=== PATIENT | female | born 1945 | race Caucasian/White ===

== ENCOUNTER → 2023-10-10 06:49 | Outpatient (REF) | payer MEDICARE, OTHER, SELFPAY ==
[2023-10-10 07:50] LABS: ALT (SGPT) < 10 U/L (0-35); AST (SGOT) 30 U/L (14-36); Albumin 4.5 g/dl (3.5-5.0); Alkaline Phosphatase 67 U/L (38-126); Blood Urea Nitrogen 23 mg/dl (7-17); Calcium 8.5 mg/dl (8.4-10.2); Carbon Dioxide 29 mmol/L (22-30); Chloride 100 mmol/L (98-107); Glucose 110 mg/dl (70-99); Potassium 4.3 mmol/L (3.5-5.1); Sodium 137 mmol/L (135-145); Total Bilirubin 0.6 mg/dl (0.2-1.3); Total Protein 7.3 g/dl (6.3-8.2); eGFR > 60.00
[2023-10-10 08:09] LABS: Vitamin D, 25-OH*** 50.6 ng/mL (30-80)
[2023-10-11 16:33] LABS: CTx 63 pg/mL
== END ==
LOC: REG 06:49
PROVIDERS: ATTENDING PHYSICIAN Student in an Organized Health Care Education/Training Program; FAMILY PHYSICIAN Internal Medicine
DX: M81.0 Age-related osteoporosis without current pathological fracture (principal); E55.9 Vitamin D deficiency, unspecified
CPT/HCPCS: 36415; 80053; 82306; 82523

== ENCOUNTER → 2023-11-22 07:19 | Outpatient (REF) | payer MEDICARE, OTHER, SELFPAY ==
[2023-11-22 07:56] LABS: Ionized Calcium 0.97 mMOL/L (1.15-1.33)
[2023-11-22 08:29] LABS: ALT (SGPT) < 10 U/L (0-35); AST (SGOT) 31 U/L (14-36); Albumin 4.5 g/dl (3.5-5.0); Alkaline Phosphatase 71 U/L (38-126); Blood Urea Nitrogen 22 mg/dl (7-17); Calcium 8.4 mg/dl (8.4-10.2); Carbon Dioxide 29 mmol/L (22-30); Chloride 100 mmol/L (98-107); Glucose 94 mg/dl (70-99); Potassium 4.2 mmol/L (3.5-5.1); Sodium 137 mmol/L (135-145); Total Bilirubin 0.6 mg/dl (0.2-1.3); Total Protein 7.2 g/dl (6.3-8.2); eGFR > 60.00
== END ==
LOC: REG 07:19
PROVIDERS: ATTENDING PHYSICIAN Internal Medicine Rheumatology; FAMILY PHYSICIAN Internal Medicine
DX: E83.50 Unspecified disorder of calcium metabolism (principal)
CPT/HCPCS: 36415; 80053; 82330; 83735; 84100

== ENCOUNTER → 2024-11-01 07:30 | Outpatient (REF) | payer MEDICARE, OTHER, SELFPAY ==
[2024-11-01 08:03] LABS: Ionized Calcium 1.04 mMOL/L (1.15-1.33)
[2024-11-01 08:59] LABS: ALT (SGPT) < 10 U/L (0-35); AST (SGOT) 35 U/L (14-36); Albumin 4.6 g/dl (3.5-5.0); Alkaline Phosphatase 54 U/L (38-126); Blood Urea Nitrogen 25 mg/dl (7-17); Calcium 8.9 mg/dl (8.4-10.2); Carbon Dioxide 32 mmol/L (22-30); Chloride 102 mmol/L (98-107); Glucose 100 mg/dl (70-99); Magnesium 1.9 mg/dl (1.6-2.3); Potassium 4.2 mmol/L (3.5-5.1); Sodium 138 mmol/L (135-145); Total Bilirubin 0.7 mg/dl (0.2-1.3); Total Protein 7.1 g/dl (6.3-8.2); eGFR > 60.00
[2024-11-01 09:12] LABS: Vitamin D, 25-OH*** 52.2 ng/mL (30-80)
[2024-11-02 10:43] LABS: Intact PTH 35.1 pg/ml (13.6-85.8)
[2024-11-03 18:20] LABS: CTx 33 pg/mL
== END ==
LOC: REG 07:30
PROVIDERS: ATTENDING PHYSICIAN Student in an Organized Health Care Education/Training Program; FAMILY PHYSICIAN Internal Medicine
DX: E83.51 Hypocalcemia (principal); M81.0 Age-related osteoporosis without current pathological fracture
CPT/HCPCS: 36415; 80053; 82306; 82330; 82523; 83735; 83970

== ENCOUNTER 2025-02-10 12:23 | Emergency (ER) | payer MEDICARE, OTHER, SELFPAY ==
[2025-02-10] VITALS (9 sets, daily range): BP systolic 120–188; BP diastolic 82–102; PULSE 75–89; BMI 18.3
[2025-02-10 13:03] LABS: Hematocrit 40.0 % (37.0-47.0); Hemoglobin 13.9 g/dL (12.0-16.0); Mean Corp Hgb Conc. 34.8 g/dL (33.0-37.0); Mean Corpuscular Volume 95.9 fL (81.0-99.0); Nucleated Red Blood Cells % 0 %; Platelet Count 337 10^3/uL (130-400); Red Cell Dist. Width 12.8 % (11.5-14.5)
[2025-02-10 13:14] LABS: Troponin I < 0.012 ng/ml
[2025-02-10 13:24] LABS: ALT (SGPT) < 10 U/L (0-35); AST (SGOT) 33 U/L (14-36); Albumin 4.6 g/dl (3.5-5.0); Alkaline Phosphatase 52 U/L (38-126); Blood Urea Nitrogen 42 mg/dl (7-17); Calcium 8.9 mg/dl (8.4-10.2); Carbon Dioxide 26 mmol/L (22-30); Chloride 97 mmol/L (98-107); Glucose 120 mg/dl (70-99); Potassium 4.5 mmol/L (3.5-5.1); Sodium 132 mmol/L (135-145); Total Protein 7.4 g/dl (6.3-8.2); eGFR > 60.00
--- NOTE | 2025-02-10 18:07 | ED.GENMED ---
History of Present Illness
General
Chief Complaint: Blood Pressure Problem
Source: patient
Exam Limitations: none
Time Seen by Provider: 02/10/25 17:04
Nursing documentation reviewed up to this point in time: agreed with
History of Present Illness
History of Present Illness:
Patient with history of Parkinson's disease for 15 years and hypertension, presents to ED secondary to intermittent lightheaded sensation over the past 1 month, especially when standing up or walking. Patient denies associated chest palpitations,
chest pain, shortness of breath, or nausea. Denies headache. However, patient does report heaviness in her neck. Denies recent change in medications or diet. Of note, 3 weeks ago, patient had nonbloody diarrhea, requiring 2 different
antibiotics. Patient has not had diarrhea for the past 10 days. Denies loss of appetite. Denies loss of weight. Patient states that she drinks enough water during the day. Denies previous history of similar symptoms. At the time exam in the
ED, while lying in stretcher, patient denies any dizziness.
Past History
Past History
ED Past Medical History: HTN, Psychiatric (Anxiety and depression) and Other (Parkinson's)
ED Past Surgical History: Gynecological (Hysterectomy) and Other (Splenectomy)
Social History
Tobacco: Non-smoker
Alcohol: Occasional
Drug: None
Personal:
Living: with family
Employment: Retired
Review of Systems
Review of Systems
Allergies reviewed?: Yes
All Other Systems: ROS reviewed and negative except as documented in HPI and ROS
Constitutional: Reports no symptoms
EENT: Reports no symptoms
Respiratory: Reports no symptoms; Denies trouble breathing
Cardiac: Denies chest pain or palpitations
ABD/GI: Reports no symptoms
Musculoskeletal: Reports no symptoms
Skin: Reports no symptoms
Neurological: Reports dizzy; Denies headache, weakness or numbness
Phy Exam
Physical Exam
Physical Exam:
Physical Exam
General: no apparent distress, not acutely ill. afebrile. thin appearing
Head: nc/at. eomi
Neck: supple. no meningeal signs.
Heart: s1/s2 regular rate and rhythm
Lungs: no acute respiratory distress. clear bilaterally
Abdomen: normal bowel sounds. not tender.
Neuro: alert and oriented x 3. no focal neurological deficits. normal speech.
Skin: no rash
Psychiatric: well kept. interactive and cooperative
Extremities: no edema. no calf tenderness.
Course
Orders/Labs/Results
Orders:
Orders
02/10/25 12:38
Electrocardiogram (*1) Urgent
Reason for Study: Chest Pain
EKG- Treatment ONCE
02/10/25 12:44
Complete Blood Count/With Diff Urgent
Comprehensive Metabolic Panel Urgent
Serum Osmolality Urgent
Comment: ADD ON
Troponin I Urgent
02/10/25 18:01
CT Head & Neck Angio W/wo IV Urgent
Comment:
Reason For Exam: head/neck pain w dizziness/syncope
Orthostatic VS- Treatment ONCE
02/10/25 19:09
0.9% Sodium Chloride 500 ml [Nss] 500 ml IV BOLUS
Metoprolol [Lopressor] 5 mg IV NOW STA
02/10/25 22:36
Add On- LAB Urgent
Tests Added?: serum osm
Abnormal Lab Results
02/10/25
12:44
RBC 4.17 L 10^6/uL
(4.20-5.40)
MCH 33.3 H pg
(27.0-31.0)
Absolute Lymphs (auto) 0.9 L 10^3/uL
(1.2-3.4)
Lymphocytes % 17.3 L %
(20.5-51.1)
Monocytes % 10.9 H %
(1.7-9.3)
Sodium 132 L mmol/L
(135-145)
Chloride 97 L mmol/L
(98-107)
BUN 42 H mg/dl
(7-17)
Glucose 120 H mg/dl
(70-99)
02/10/25 12:44
02/10/25 12:44
Vital Signs
Initial and Last Documented VS:
Initial Vital Signs
Temp Pulse Resp BP Pulse Ox
98.8 F 67 16 140/90 98
02/10/25 12:35 02/10/25 12:35 02/10/25 12:35 02/10/25 12:35 02/10/25 12:35
Last Documented Vital Signs
Temp Pulse Resp BP Pulse Ox
98.8 F 89 17 120/93 99
02/10/25 12:35 02/10/25 21:39 02/10/25 21:39 02/10/25 22:35 02/10/25 21:30
MDM/Problems Addressed
MDM/Problems Addressed:
CT head report reviewed and discussed with patient and spouse. Patient given IV fluids with improvement in symptoms. Blood work reviewed and discussed, including hyponatremia, which may be prerenal, exacerbated by recent episode of diarrhea.
After IV fluid administration, patient was able to ambulate independently with steady gait, without any further dizziness. As such, decision made to discharge patient home with recommendation to increase water intake along with close PCP follow-up,
including repeat blood work as an outpatient. Advised to return to ED with recurrent or worsening symptoms.
*Pulse Oximetry
SaO2: 82
Oxygen Mode of Delivery: Room air
Patient hypoxic: no
*Critical Care Note
Total Time (30-74mins, 75-104mins- exclusive of procedures): Not Applicable
ED Attending Note
-
Portions of this chart may have been created with voice recognition software.� Occasional wrong word or��sound alike� substitutions may have occurred due to the inherent limitations of voice recognition software.
Discharge Plan
Departure
Patient Disposition: Home (Routine Discharge)
Date of Disposition: 02/10/25
Time of Disposition: 22:36
Patient with high blood pressure during this ER visit?: Yes
Condition: Fair
Discharge Problem:
Dizziness, Hyponatremia
Instructions: Hyponatremia, Dizziness in adults - ED (DC)
Prescriptions:
No Action
bisoprolol fumarate 5 MG tablet
5 mg PO DAILY
estradiol 1 APPLIC cream
1 applic S .TWICE PER WEEK
carbidopa-levodopa 1 EACH tablet
1 ea PO TID
rasagiline 1 MG tablet
1 mg PO DAILY
lisinopril 10 MG tablet
10 mg PO DAILY Qty: 20 0RF
amlodipine 2.5 mg tablet
2.5 mg PO DAILY Qty: 30 0RF
Referrals:
Kanchan Polo DO [Family Provider, Internal Medicine]
Activity Restrictions/Additional Instructions:
As discussed, please follow-up with your primary care physician for reevaluation, including repeat blood work over the next 2 weeks. In the meantime, recommend increasing fluid intake, along with proper nutrition. Please consider return to ED with
worsening symptoms.
Interventions
Interventions:
*Risk Screen - Suicide Last Done: 02/10/25 12:35
*General Assessment Last Done: 02/10/25 18:03
*Neglect/Abuse Screening Last Done: 02/10/25 18:03
*ED- Fall Risk Assessment Last Done: 02/10/25 18:03
*ED COVID-19 Vaccine History Last Done: 02/10/25 18:03
*Nursing Disposition Last Done: 02/10/25 22:44
ED- Cardiac Assessment Last Done: 02/10/25 18:03
ED- Neurological Assessment Last Done: 02/10/25 18:03
ED- Pulmonary Assessment Last Done: 02/10/25 18:03
Discharge Date and Time
Discharge Date/Time: 02/10/25 22:45
Print Language: GEORGIAN
[2025-02-10] MEDS: NSS 500 IV (19:13)
== END 2025-02-10 22:45 | disposition home or self-care (01) ==
LOC: EMR 12:23
PROVIDERS: Emergency Medicine; EMERGENCY PHYSICIAN Emergency Medicine; FAMILY PHYSICIAN Internal Medicine
DX: R42 Dizziness and giddiness (principal); E87.1 Hypo-osmolality and hyponatremia; I10 Essential (primary) hypertension; G20.A1 Parkinson's disease without dyskinesia, without mention of fluctuations; Z90.710 Acquired absence of both cervix and uterus; Z90.81 Acquired absence of spleen
CPT/HCPCS: 99284; 96374; 96361; 70496; 70498; 80053; 83930; 84484; 85025; 93005; Q9967

== ENCOUNTER 2025-03-06 20:42 | Inpatient (IN) | payer MEDICARE, OTHER, SELFPAY ==
[2025-03-06 17:09] VITALS: BP 90/65
[2025-03-06 17:36] LABS: Hematocrit 32.2 % (37.0-47.0); Hemoglobin 11.3 g/dL (12.0-16.0); Mean Corp Hgb Conc. 35.1 g/dL (33.0-37.0); Mean Corpuscular Volume 95.3 fL (81.0-99.0); Platelet Count 223 10^3/uL (130-400); Red Cell Dist. Width 13.1 % (11.5-14.5)
[2025-03-06 17:47] LABS: ALT (SGPT) < 10 U/L (0-35); AST (SGOT) 29 U/L (14-36); Albumin 3.7 g/dl (3.5-5.0); Alkaline Phosphatase 66 U/L (38-126); Blood Urea Nitrogen 53 mg/dl (7-17); Calcium 6.9 mg/dl (8.4-10.2); Carbon Dioxide 24 mmol/L (22-30); Chloride 98 mmol/L (98-107); Glucose 151 mg/dl (70-99); Lipase 33 U/L (23-300); Potassium 3.8 mmol/L (3.5-5.1); Sodium 129 mmol/L (135-145); Total Protein 6.0 g/dl (6.3-8.2); eGFR 58.02
[2025-03-06 18:25] LABS: Absolute Neutrophils -Man Diff 17.0 10^3/uL (1.4-6.5); Normal RBC Morphology Yes; Platelets Checked Yes; Total Cells Counted 100
--- NOTE | 2025-03-06 18:30 | ED.GENMED ---
History of Present Illness
<Jasiel Man PA-C - Last Filed: 03/06/25 19:11>
General
Chief Complaint: Weakness
Source: patient and spouse
Time Seen by Provider: 03/06/25 17:59
History of Present Illness
History of Present Illness:
79-year-old female with past medical history of hypertension, Parkinson's, hepatitis C, anxiety and depression presenting to the emergency department for evaluation of generalized weakness since the last month, slightly worse over the last few days
which is what prompted them to come to the ER, patient stating she overall did not want to come to the ER but felt it was necessary. Patient states she has a hard time walking due to the weakness, notes that she has lost 15 pounds in the
last few months unintentionally, not eating or drinking very much. She notes that she has been treated with antibiotics for an intestinal infection about 2 weeks ago, started with diarrhea yesterday noting she has had upwards of 6 episodes of
diarrhea yesterday and today. Patient notes about 18 months ago having a bout of C. difficile. She denies any known fevers, chills, rigors, current nausea or vomiting, abdominal pain, chest pain or shortness of breath. Patient and spouse live
between here in [place].
Past History
<Jasiel Man PA-C - Last Filed: 03/06/25 19:11>
Past History
ED Past Medical History: HTN, Psychiatric (Anxiety and depression) and Other (Parkinson's)
ED Past Surgical History: Gynecological (Hysterectomy) and Other (Splenectomy)
Social History
Tobacco: Non-smoker
Alcohol: Occasional
Drug: None
Personal:
Living: with family
Employment: Retired
Review of Systems
<Jasiel Man PA-C - Last Filed: 03/06/25 19:11>
Review of Systems
All Other Systems: ROS reviewed and negative except as documented in HPI and ROS
Phy Exam
<Jasiel Man PA-C - Last Filed: 03/06/25 19:11>
Physical Exam
Physical Exam:
GENERAL: Alert , in no apparent distress, thin, sickly, appears older than stated age
EYE: clear conjunctiva b/l
HEAD: NCAT
ENT: o/p clr, dry mucous membranes
CARDIAC: Borderline tachycardic rate and rhythm
LUNGS: Clear breath sounds bilaterally, no acute respiratory distress, no wheezes/rales/rhonchi
ABDOMEN: Soft, without focal tenderness, no r/g, no cvat
NEUROLOGICAL: Alert and oriented
SKIN: Warm and dry, skin intact.
MUSCULOSKELETAL: No edema, well perfused.
PSYCH: Normal and appropriate interaction.
Scores
<CHARLENE Saucedo Last Filed: 03/06/25 19:11>
Heart Failure Risk
Heart Failure Risk Score: Not Applicable
Heart Score for Chest Pain Patients
STEMI patient?: Not applicable
Withdrawal Assessment of Alcohol
Withdrawal Assessment Completed?: Not applicable
Course
<Jasiel Man PA-C - Last Filed: 03/06/25 19:11>
Orders/Labs/Results
Orders:
Orders
03/06/25 17:19
Complete Blood Count/With Diff Urgent
Comprehensive Metabolic Panel Urgent
Lipase Urgent
Manual Differential Urgent
03/06/25 18:00
Electrocardiogram (*1) Urgent
Reason for Study: QTc Monitoring
EKG- Treatment ONCE
Urinalysis Reflex To Culture Urgent
0.9% Sodium Chloride 1000 ml [Nss] 1,000 ml IV BOLUS
03/06/25 18:13
STOOL [C difficile Antigen & Toxins] Urgent
JOEY Source: Feces/Stool
Specimen Description:
Stool Culture Urgent
JOEY Source: Feces/Stool
Specimen Description:
03/06/25 18:30
Blood Culture Q30M
JOEY Source: Blood/Venous
Specimen Description:
03/06/25 18:31
Ionized Calcium Urgent
Lactic Acid Q4H
Comment: CANCEL 2nd LACTIC ACID IF 1st LACTIC ACID IS LESS THAN 2
Magnesium Urgent
Parathyroid Hormone [Intact PTH Includes Calcium] Urgent
Vitamin D, 25-OH Urgent
Blood Culture Q30M
JOEY Source: Blood/Venous
Specimen Description:
03/06/25 19:01
Calcium Gluconate 1 gram/100mL [Calcium Gluconate] 1 gram in 100 ml IV ONCE
03/06/25 22:00
Lactic Acid Q4H
Comment: CANCEL 2nd LACTIC ACID IF 1st LACTIC ACID IS LESS THAN 2
Abnormal Lab Results
03/06/25 03/06/25
17:19 18:31
WBC 18.5 H 10^3/uL
(4.8-10.8)
RBC 3.38 L 10^6/uL
(4.20-5.40)
Hgb 11.3 L g/dL
(12.0-16.0)
Hct 32.2 L %
(37.0-47.0)
MCH 33.4 H pg
(27.0-31.0)
Abs Neuts (Manual) 17.0 H 10^3/uL
(1.4-6.5)
Segmented Neutrophils 81 H %
(42-75)
Band Neutrophils 11 H %
(0-3)
Lymphocytes (Manual) 4 L %
(20-51)
Sodium 129 L mmol/L
(135-145)
BUN 53 H mg/dl
(7-17)
Glucose 151 H mg/dl
(70-99)
Lactic Acid 2.3 H mmol/L
(0.7-2.0)
Calcium 6.9 L* mg/dl 7.1 L mg/dl
(8.4-10.2) (8.4-10.2)
Ionized Calcium 0.91 L mMOL/L
(1.15-1.33)
Total Protein 6.0 L g/dl
(6.3-8.2)
03/06/25 17:19
03/06/25 17:19
Vital Signs
Initial and Last Documented VS:
Initial Vital Signs
Temp Pulse Resp BP Pulse Ox
99.7 F 110 16 90/65 95
03/06/25 17:09 03/06/25 17:09 03/06/25 17:09 03/06/25 17:09 03/06/25 17:09
Last Documented Vital Signs
Temp Pulse Resp BP Pulse Ox
99.7 F 110 16 90/65 95
03/06/25 17:09 03/06/25 17:09 03/06/25 17:09 03/06/25 17:09 03/06/25 18:31
<Ramakrishna Mayes MD - Last Filed: 03/06/25 18:54>
Orders/Labs/Results
Orders:
Orders
03/06/25 17:19
Complete Blood Count/With Diff Urgent
Comprehensive Metabolic Panel Urgent
Lipase Urgent
Manual Differential Urgent
03/06/25 18:00
Electrocardiogram (*1) Urgent
Reason for Study: QTc Monitoring
EKG- Treatment ONCE
Urinalysis Reflex To Culture Urgent
0.9% Sodium Chloride 1000 ml [Nss] 1,000 ml IV BOLUS
03/06/25 18:13
STOOL [C difficile Antigen & Toxins] Urgent
JOEY Source: Feces/Stool
Specimen Description:
Stool Culture Urgent
JOEY Source: Feces/Stool
Specimen Description:
03/06/25 18:30
Blood Culture Q30M
JOEY Source: Blood/Venous
Specimen Description:
03/06/25 18:31
Ionized Calcium Urgent
Lactic Acid Q4H
Comment: CANCEL 2nd LACTIC ACID IF 1st LACTIC ACID IS LESS THAN 2
Magnesium Urgent
Parathyroid Hormone [Intact PTH Includes Calcium] Urgent
Vitamin D, 25-OH Urgent
Blood Culture Q30M
JOEY Source: Blood/Venous
Specimen Description:
03/06/25 19:01
Calcium Gluconate 1 gram/100mL [Calcium Gluconate] 1 gram in 100 ml IV ONCE
03/06/25 22:00
Lactic Acid Q4H
Comment: CANCEL 2nd LACTIC ACID IF 1st LACTIC ACID IS LESS THAN 2
Abnormal Lab Results
03/06/25 03/06/25
17:19 18:31
WBC 18.5 H 10^3/uL
(4.8-10.8)
RBC 3.38 L 10^6/uL
(4.20-5.40)
Hgb 11.3 L g/dL
(12.0-16.0)
Hct 32.2 L %
(37.0-47.0)
MCH 33.4 H pg
(27.0-31.0)
Abs Neuts (Manual) 17.0 H 10^3/uL
(1.4-6.5)
Segmented Neutrophils 81 H %
(42-75)
Band Neutrophils 11 H %
(0-3)
Lymphocytes (Manual) 4 L %
(20-51)
Sodium 129 L mmol/L
(135-145)
BUN 53 H mg/dl
(7-17)
Glucose 151 H mg/dl
(70-99)
Lactic Acid 2.3 H mmol/L
(0.7-2.0)
Calcium 6.9 L* mg/dl 7.1 L mg/dl
(8.4-10.2) (8.4-10.2)
Ionized Calcium 0.91 L mMOL/L
(1.15-1.33)
Total Protein 6.0 L g/dl
(6.3-8.2)
03/06/25 17:19
03/06/25 17:19
Vital Signs
Initial and Last Documented VS:
Initial Vital Signs
Temp Pulse Resp BP Pulse Ox
99.7 F 110 16 90/65 95
03/06/25 17:09 03/06/25 17:09 03/06/25 17:09 03/06/25 17:09 03/06/25 17:09
Last Documented Vital Signs
Temp Pulse Resp BP Pulse Ox
99.7 F 110 16 90/65 95
03/06/25 17:09 03/06/25 17:09 03/06/25 17:09 03/06/25 17:09 03/06/25 18:31
<Jasiel Man PA-C - Last Filed: 03/06/25 19:11>
MDM/Problems Addressed
Differential Diagnosis Includes:
Anemia
Electrolyte imbalance
Acute kidney injury
C. difficile colitis
Antibiotic associated diarrhea
Dehydration
Malignancy
MDM/Problems Addressed:
79-year-old female presenting to the ER for generalized weakness x 1 month, yesterday started with diarrhea in the setting of recent antibiotics, history of C. difficile. Patient mildly hypotensive and tachycardic in triage. Ill-appearing at time
of my exam. Labs have been initiated in triage which show a calcium of 6.9. Patient noted to me a history of parathyroidectomy, raises suspicion for hypoparathyroidism as cause of low calcium. Patient also has a significant leukocytosis with
bandemia and leftward shift. Septic workup initiated, IV fluids ordered. Will plan for admission.
<Jasiel Man PA-C - Last Filed: 03/06/25 19:11>
*Pulse Oximetry
SaO2: 95
Oxygen Mode of Delivery: Room air
Patient hypoxic: no
*EKG
Heart Rate: 95
Rate: normal
Rhythm: sinus
Interval: normal interval
*Slitter Operator Interpretation
Rate: normal
Heart Rate: 93
Rhythm: sinus
*Critical Care Note
Total Time (30-74mins, 75-104mins- exclusive of procedures): Not Applicable
Data Reviewed
Review of Other/Old Records Reveals: Labs and Records
<Jasiel Man PA-C - Last Filed: 03/06/25 19:11>
Patient Management
Discussion with other providers: Hospitalist
Escalation/DeEscalation of care consider admission/obs:
Hospitalist team accepts for continued evaluation and treatment
ED Attending Note
<Jasiel Man PA-C - Last Filed: 03/06/25 19:11>
-
Portions of this chart may have been created with voice recognition software.� Occasional wrong word or��sound alike� substitutions may have occurred due to the inherent limitations of voice recognition software.
<Ramakrishna Mayes MD - Last Filed: 03/06/25 18:54>
ED Attending Note
Patient seen and examined by attending physician: Yes
ED Attending Note:
Patient seen in ED 2 weeks ago, at which time she was treated for dizziness secondary to likely mild dehydration, presents to ED secondary to worsening generalized weakness along with 'not feeling well', since being home. Denies fever or chills.
Denies vomiting. Patient reports decreased appetite. Denies coughing. Denies recent change in medications. Patient has had episodes of diarrhea recently, including over the past 24 hours.
Physical Exam
General: mild distress, weak appearing. afebrile
Head: nc/at. eomi
Neck: supple. no meningeal signs.
Heart: s1/s2 regular rate and rhythm
Lungs: no acute respiratory distress. clear bilaterally
Abdomen: normal bowel sounds. not tender.
Neuro: alert and oriented x 3. no focal neurological deficits
Skin: no rash
Psychiatric: well kept. interactive and cooperative
Extremities: no edema. no calf tenderness.
Blood work reviewed, significant for electrolyte abnormalities, including hypocalcemia. In addition, leukocytosis noted with bandemia, raising concern for potential infectious etiology behind patient's symptoms. Blood culture ordered. Stool
culture ordered. Will hold off antibiotics for now, as there is no focal source of infection. Patient will be admitted for further evaluation and treatment.
Discharge Plan
Departure
Patient Disposition: Admit
Date of Disposition: 03/06/25
Time of Disposition: 18:30
Presentation/result/management discussed w/ accepting MD/DO: Hospitalist
Discharge Problem:
Hypocalcemia, Bandemia
Prescriptions:
No Action
bisoprolol fumarate 5 MG tablet
5 mg PO DAILY
estradiol 1 APPLIC cream
1 applic S .TWICE PER WEEK
carbidopa-levodopa 1 EACH tablet
1 ea PO TID
rasagiline 1 MG tablet
1 mg PO DAILY
lisinopril 10 MG tablet
10 mg PO DAILY Qty: 20 0RF
amlodipine 2.5 mg tablet
2.5 mg PO DAILY Qty: 30 0RF
Interventions
Interventions:
*Risk Screen - Suicide Last Done: 03/06/25 17:09
*General Assessment Last Done: 03/06/25 17:09
*Neglect/Abuse Screening Last Done: 03/06/25 17:09
*ED COVID-19 Vaccine History Last Done: 03/06/25 17:09
*ED Influenza Vaccine History Last Done: 03/06/25 17:09
Discharge Date and Time
Print Language: [place]
[2025-03-06] MEDS: NSS 1000 IV ×2 (18:41→23:04)
[2025-03-06 19:03] LABS: Calcium 7.1 mg/dl (8.4-10.2); Magnesium 1.8 mg/dl (1.6-2.3)
[2025-03-06] MEDS: CALCIUM GLUCONATE 100 IV (19:10)
--- NOTE | 2025-03-06 19:11 | HPS.HSE ---
Family Physician
-
Family Physician: NOT KNOW UNKNOWN - PT DOES
Chief Complaint
-
weakness
History of Present Illness
This is a 79-year-old female with past medical history significant for Parkinson's disease, CAD, hypertension, presenting to the emergency department from home with weakness.
Patient spouse reports that she has been having diarrhea for the last 1 month. She reports loose stools that contain some trunk but also has consistency of soup. She states she goes to the bathroom for diarrhea greater than 5 times in a day. She
reports feeling weak and dizzy and lightheaded. She reports a diffuse periumbilical abdominal discomfort but no pain. She denies any nausea or vomiting. She denies any fevers or chills. She denies that anyone else is having similar symptoms at
home. She has no recent travels or sick contacts.
Patient reported that about 18 months ago she was diagnosed with C. difficile infection which has a similar smell and consistency to what she had now. She was treated and was symptom-free for about 9 months and then had another episode of diarrhea
but at that time she did not have C. difficile and that resolved spontaneously. She has not had diarrheal episodes since then up until now.
Patient denies any prior history of inflammatory bowel disease. She denies history of irritable bowel syndrome. She reports that her last colonoscopy she had no abnormalities.
She she continues to tolerate oral intake but according to spouse consistently diminished over the last 1 month. Did report about a 15 pound weight loss but is unclear of how long.
She has continued her usual medications. Despite having diarrhea today, no diarrhea so far in the emergency department.
In the emergency department patient was found to have a low blood pressure of 90/65, at Tmax was 99.7 with a pulse rate of 110 and she was satting 95% on room air. ECG shows a normal sinus rhythm at a rate of 98 with normal intervals.
She has a white count with WBC of 18.5 and 11% bands. Sodium was 129 and rest of the electrolytes was stable. BUN 53 creatinine 1.0 with normal glucose. Lactic acid was 2.3. Calcium was 7.1 with ionized calcium of 0.9
Medical History
Past Medical History
Past Medical History: Reports CAD, HTN and Other
Additional Past Medical History:
Parkinson disease
Hepatitis C virus
Osteoporosis
Past Surgical History: Reports Other (Hysterectomy, splenectomy, MOHS)
Social History
Tobacco: Non-smoker
Alcohol: None
Drug: None
Personal:
Living: With Family
Family History
Family History: Not pertinent
Allergies / Home Medications
Allergies reflects when Allergies were last updated in [facility].
Home Medications with original date entered in [facility]
Allergy/Medication List:
Allergies
Allergy/AdvReac Type Severity Reaction Status Date / Time
COVID-19 vaccine, mRNA, Allergy Hives Verified 03/06/25 17:12
[id number], L
COVID-19 vaccine, mRNA, Allergy Hives Verified 03/06/25 17:12
[id number],
latex Allergy Rash Verified 03/06/25 17:12
Sulfa (Sulfonamide Allergy Hives Verified 03/06/25 17:12
Antibiotics)
Home Medications
bisoprolol fumarate 5 mg tablet 5 mg PO DAILY 05/18/19
carbidopa 25 mg-levodopa 100 mg tablet 1 ea PO TID 05/18/19
estradiol 0.01% (0.1 mg/gram) vaginal cream 1 applic S .TWICE PER WEEK 05/18/19
rasagiline 1 mg tablet 1 mg PO DAILY 05/18/19
lisinopril 10 mg tablet 10 mg PO DAILY #20 tabs 02/20/20
amlodipine 2.5 mg tablet 2.5 mg PO DAILY #30 tabs 01/12/23
Review of Systems
-
Constitutional: Reports Weight Loss, Fatigue and Sleep Disturbance; Denies Chills
EENT: Reports No Symptoms
Respiratory: Reports No Symptoms
Cardiac: Reports No Symptoms
Abdomen/GI: Reports Diarrhea
: Reports No Symptoms
Musculoskeletal: Reports No Symptoms
Skin: Reports No Symptoms
Neurological: Reports No Symptoms
Endocrine: Reports No Symptoms
Hematologic/Lymphatic: Reports No Symptoms
Psych: Reports Anxiety
Physical Exam
Vital Signs
Vital Signs
Temp Pulse Resp BP Pulse Ox
99.7 F 110 16 90/65 95
03/06/25 17:09 03/06/25 17:09 03/06/25 17:09 03/06/25 17:09 03/06/25 18:31
Physical Exam
General: Appears Chronically Ill
HEENT: NormoCephalic, Anicteric, Moist mucous membranes, Atraumatic, PERRLA and [place] Conjunctivae
Respiratory: Clear
Cardiac: S1/S2 and Regular Rhythm
Breast: Deferred by me
GI: Soft, Non Tender, Non Distended and Normal Bowel Sounds
Rectal: Deferred by Provider
Genito-urinary: Deferred by me
Musculoskeletal: No Clubbing, No Cyanosis and No Edema
Skin: Warm
Neuro: Awake, AO x 3 and Nonfocal/grossly intact
Hematologic/Lymphatic: No Lymphadenopathy
Psych: Calm
Laboratory Results
-
03/06/25 17:19
03/06/25 17:19
Laboratory Results
Lactic Acid 2.3 mmol/L (0.7-2.0) H 03/06/25 18:31
Total Bilirubin 0.9 mg/dl (0.2-1.3) 03/06/25 17:19
AST 29 U/L (14-36) 03/06/25 17:19
ALT < 10 U/L (0-35) 03/06/25 17:19
Alkaline Phosphatase 66 U/L (38-126) 03/06/25 17:19
Lipase 33 U/L (23-300) 03/06/25 17:19
Data Reviewed
-
Medical Tests (Nuc Med, Echo, EKG etc): Image Personally Visualized and interpreted
Lab Data: Labs Reviewed by me
Old Records: Reviewed
Impression/Plan
-
IMPRESSION:
79-year-old presenting with 1 month of diarrhea, weakness and found to have significant hyponatremia, hypocalcium, leukocytosis and bandemia. She is afebrile here. No diarrhea to find emergency department. She is nontoxic-appearing. Known
history of C. difficile. No recent antibiotic use. Exposure to well water but no order or household members with diarrhea or similar symptoms. She is dehydrated with elevated lactic acid and has had 15 pound weight loss recently.
PLAN:
1. Diarrhea -subacute to acute diarrhea of currently unknown etiology with possibly infectious sources including C. difficile and parasites in the differential. No known history of IBD IBS malabsorption syndromes or celiac disease.
- admit to telemetry for now
- stool samples pending (cdiff, culture, ova and parasite)
- will consider CT a/p if patient develops fever or worsening abdominal pain
- with risk of CDiff will hold off abx pending stool sampling
- blood cultures sent, u/a and culture pending given bandemia
- IV fluids with NS for now
- diet as tolerated
2. Hypocalcemia - Severely low, Suspect possible malabsorption and vit d deficiency vs hypothyroidism. No current severe symptoms such as tetany, spasms, prolonged Qt but she has significant generalized weakness.
- replete calcium, 2 g IV now then
- then 2 g over the next 24 hours slowly
- check mag and phos
- intact pth, vitamin D and active vitamin d levels pending
3. Hyponatremia - Na 129, diarrhea over 1 month with hypovolemia.
- Continue NS infusion for now
- check urine studies
- check tsh
4. Hypotension
- hold lisinopril and amlodipine fo rnow
- continue bisoprolol wit hhold parameters
5. Parksinon
- continue rasagiline and carbidopa-levidopa
DVT PPX - lovenox sq
Code status - Full code
[2025-03-06 19:20] LABS: Vitamin D, 25-OH*** 53.2 ng/mL (30-80)
[2025-03-06] MEDS: ATIVAN 0.5 MG PO (20:29)
[2025-03-06 21:49] LABS: Blood Urea Nitrogen 45 mg/dl (7-17); Calcium 6.9 mg/dl (8.4-10.2); Carbon Dioxide 20 mmol/L (22-30); Chloride 100 mmol/L (98-107); Estimated Creatinine Clearance 42 ml/min; Glucose 137 mg/dl (70-99); Potassium 3.7 mmol/L (3.5-5.1); Sodium 127 mmol/L (135-145); eGFR > 60.00
[2025-03-06] MEDS: TYLENOL 650 MG PO (22:07)
[2025-03-06] MEDS: CALCIUM GLUCONATE 290 MG IV (22:10)
[2025-03-06 22:44] LABS: Urine Character Clear (Clear)
[2025-03-06 22:58] LABS: Urine Red Blood Cell 0-2 /HPF (0-2); Urine Squamous Cell >30 /LPF (Few)
[2025-03-06] MEDS: SINEMET 25-100 1 TABLET PO (23:04)
[2025-03-06] MEDS: MIRAPEX 0.25 MG PO (23:04)
[2025-03-06] MEDS: MELATONIN 5 MG PO (23:04)
[2025-03-06] MEDS: OSCAL 500 + D 500 MG PO (23:04)
[2025-03-07] VITALS (33 sets, daily range): BP systolic 71–151; BP diastolic 41–101
[2025-03-07] MEDS: LOPRESSOR 2.5 MG IV (03:10)
--- NOTE | 2025-03-07 03:26 | W.PN.UPDATE ---
Addendum entered and electronically signed by LUIS Greco 03/07/25 05:38:
Patient hypotensive, Cardizem gtt titrated to off. NSS 500 ml bolus ordered. Pt remains in NSR.
Addendum entered and electronically signed by LUIS Greco 03/07/25 04:51:
RN reported that patient converted to NSR, HR 104. EKG completed. Remains on Cardizem gtt at 15 mg/hr.
Original Note:
Update Note
Progress Note Update
Called to see patient, HR 140-150's, EKG shows new onset afib w/RVR, slight depressions on preliminary read. Patient denies palpitations, dizziness, lightheadedness or nausea. She does admit to feeling a 'pressure' in her chest.
Pt BP 100/60's, ordered Lopressor 2.5 mg IV x 1. No improvement in HR, BP lower. Ordered Cardizem 5 mg IV x 1 and initiate Cardizem gtt at 5 mg/hr and titrate. Ordered NSS 500 ml bolus. [facility], Dr. Hunter, consulted.
Requested AM labs be done early, added troponin.
Upgraded care to IMU.
[2025-03-07] MEDS: CARDIZEM 5 MG IV (03:33)
[2025-03-07] MEDS: CARDIZEM 125 IV (03:34)
[2025-03-07 03:35] LABS: Hematocrit 32.9 % (37.0-47.0); Hemoglobin 11.8 g/dL (12.0-16.0); Mean Corp Hgb Conc. 35.9 g/dL (33.0-37.0); Mean Corpuscular Volume 93.5 fL (81.0-99.0); Platelet Count 211 10^3/uL (130-400); Red Cell Dist. Width 13.0 % (11.5-14.5)
[2025-03-07] MEDS: NSS 500 IV ×2 (03:36→05:39)
--- NOTE | 2025-03-07 03:47 | PTCARENOTE ---
Late note due to pt care:
Pt started with tachycardia will on the monitor. EKG obtained. Pt reported chest pain/ pressure. Provider was called urgently. she arrived at bedside. see VESNA for medication administration. Pt remains awake and alert. 2nd iv placed . labs drawn.
[2025-03-07 04:08] LABS: Blood Urea Nitrogen 44 mg/dl (7-17); Calcium 8.7 mg/dl (8.4-10.2); Carbon Dioxide 19 mmol/L (22-30); Chloride 102 mmol/L (98-107); Estimated Creatinine Clearance 42 ml/min; Glucose 111 mg/dl (70-99); Magnesium 1.9 mg/dl (1.6-2.3); Potassium 3.7 mmol/L (3.5-5.1); Sodium 129 mmol/L (135-145); eGFR > 60.00
[2025-03-07 04:18] LABS: Troponin I 0.020 ng/ml
[2025-03-07 04:53] LABS: TSH 1.27 uIU/ml (0.47-4.68)
[2025-03-07] MEDS: NSS 1000 IV ×3 (05:40→23:11)
[2025-03-07] MEDS: TYLENOL 650 MG PO ×2 (06:03→15:45)
[2025-03-07] MEDS: SINEMET 25-100 1 TABLET PO ×5 (06:10→20:43)
[2025-03-07] MEDS: OSCAL 500 + D 500 MG PO ×3 (08:25→20:43)
[2025-03-07] MEDS: RASAGILINE MESYLATE 1 MG PO (08:25)
[2025-03-07] MEDS: PEPCID 20 MG PO (08:25)
--- NOTE | 2025-03-07 08:27 | W.PN.HOSP.TC ---
Today's Communication/Plan
-
see bold
Assessment / Plan
Assessment / Plan
HPI: 79-year-old presenting with 1 month of diarrhea, weakness and found to have significant hyponatremia, hypocalcium, leukocytosis and bandemia. She is afebrile here. No diarrhea to find emergency department. She is nontoxic-appearing. Known
history of C. difficile. No recent antibiotic use. Exposure to well water but no order or household members with diarrhea or similar symptoms. She is dehydrated with elevated lactic acid and has had 15 pound weight loss recently.
#Sepsis
#C. difficile colitis
Appreciate GI input, for CT abdomen and pelvis today
Appreciate ID input, recommend fidaxomicin 200 mg p.o. twice daily
Continue IV fluids, trend fever and white count
#Hyponatremia, suspect hypovolemic
Continue IV fluids, monitor
#Hypotension
Hold home amlodipine, hold lisinopril
Continue IV fluids
#New onset atrial fibrillation with controlled rate
Appreciate cardiology input, recommend Eliquis 5 mg twice a day vs IV heparin drip
Stopped IV diltiazem, increase bisoprolol to 10 mg daily
#Parkinson disease
Continue Sinemet
#Hypocalcemia
Vitamin D levels normal, follow-up PTH intact
Repleted, monitor
DVT prophylaxis�subcu Lovenox
Full code
Total time spent to see the patient on the floor, examine the patient, review data and lab results, discuss treatment plan with patient, nursing staff around 50 minutes.
Physical Exam
General: Appears to not feel well, no acute distress
HEENT: Normocephalic, Atraumatic, EOMI, MMM
Respiratory: Clear to Auscultation bilaterally
Cardiac: Normal S1/S2, Regular Rate and Rhythm
GI: Soft, diffusely tender, Nondistended, Normal Bowel Sounds
Extremities: No Clubbing, Cyanosis, or Edema
Anticipated Discharge: > 48 hours
Subjective/Interval History
-
Date of Service: March 07, 2025
Patient complains of 5 out of 10 abdominal pain. She continues to have diarrhea and weakness. Denies chest pain, denies shortness of breath, denies vomiting. She is febrile.
Objective Data
-
Labs:
Laboratory Results
03/06/25 03/07/25
21:13 03:27
WBC 18.3 H
Hgb 11.8 L
Hct 32.9 L
Plt Count 211
Sodium 127 L 129 L
Potassium 3.7 3.7
Chloride 100 102
Carbon Dioxide 20 L 19 L
BUN 45 H 44 H
Creatinine 0.8 0.8
Glucose 137 H 111 H
Calcium 6.9 L* 8.7 D
Vital Signs:
Vital Signs
Temp Pulse Resp BP Pulse Ox
100.7 F H 91 18 103/69 93
03/07/25 05:52 03/07/25 08:00 03/07/25 08:00 03/07/25 07:00 03/07/25 07:45
[2025-03-07] MEDS: KCL 20 MEQ PO (09:13)
[2025-03-07 10:00] LABS: Troponin I 0.067 ng/ml
[2025-03-07] MEDS: ZOSYN 50 IV (10:18)
--- NOTE | 2025-03-07 10:19 | CON.CAR ---
Addendum entered and electronically signed by Patricio Watt MD 03/07/25 15:05:
I saw and evaluated the patient, and I provided the substantive portion of the medical decision making.
I reviewed and agree with the note by Jaylin Dailey and it accurately reflects our care.
I personally performed the medical decision making of the this encounter and my assessment and plan is below:
79-year-old female with a past medical history of nonobstructive CAD, Parkinson's, hypertension, acute on chronic abdominal pain and diarrhea over the last month. She tells me she has not felt well for a year, this worsened over the last 6 months
with a resulting 10 pound weight loss. She has had abdominal distention and diarrhea. Over the last several days she feels like the stool has been dark and black at times. Meanwhile while observed in the emergency department she had an episode of
paroxysmal atrial fibrillation with rapid ventricular response and we are asked to comment. She has no palpitations currently and is back in sinus. Initially she was placed on a diltiazem drip. GI has been consulted for evaluation of her stomach.
She lives at home independently with her . She does not fall routinely. She uses a walker.
On exam, she is thin and appears chronically ill, she has a regular rate and rhythm with a normal S1-S2 no murmurs gallops were appreciated lungs were clear to auscultation. Abdomen was distended and soft,
I think all the labs you call the lab just I do not want to ask him okay yeah yeah no rebound or guarding, no lower extremity edema. Review of EKGs initially shows sinus rhythm with a extensive baseline artifact but otherwise nonspecific ST wave
changes. Repeat EKG showed atrial fibrillation with rapid ventricular response. Septal infarct pattern and nonspecific ST-T wave changes. Repeat echocardiogram an hour and a half later shows sinus rhythm with septal infarct pattern and
nonspecific ST-T wave abnormalities. Labs are concerning for leukocytosis with bandemia, hemoglobin 11.8 last baseline from 02/20 13.9.
Assessment:
New paroxysmal atrial fibrillation: Back in sinus rhythm, will increase her baseline bisoprolol and stop her amlodipine given low blood pressure. CHADS2 Vasc score is 3. Anticoagulation should be started when indicated. Given complaint of melena
will check Hemoccult for stool first. I called and added this onto the lab. Will review with team whether or not they wish to start heparin or Eliquis given concerns of abdominal pain. Update echo
Hypertension: Stop amlodipine increase bisoprolol
Diarrhea: Concern for melena, but C. difficile is now positive. GI and ID following.
Will follow.
Original Note:
Consultation
Consultation Request
Date/Time Consultation Requested: 03/07/25 3:50a
Date/Time Consultation Performed: 03/07/25 9:30a
Requesting Provider: LUIS Greco
Performing Provider: LUIS Huggins for Dr. Watt
Reason for Consultation: Afib with RVR
Medical History
-
Chief Complaint: abdominal pain/diarrhea
History of Present Illness:
Mrs. Gil is a 79 yo female with nonobstructive CAD on cath 01/2014, HTN, Parkinson's, and mild mitral regurgitation, who presents to the ER with c/o abdominal pain and diarrhea for 1 month. She is admitted to the hospitalist service and we are
consulted for new onset rapid Afib 03/07/25 around 3am. She was treated with IV Diltiazem and converted to NSR around 4:30am, she is still on IV Diltiazem with rates 90s-100s. She c/o chest pressure to upper chest area intermittently over the last
month with GI symptoms as well. She currently denies any chest pressure.
Past Medical History
Past Medical History: Other (as above)
Past Surgical History: Gynecological (hysterectomy) and Other (melanoma removed left arm 11/2020, splenectomy )
Social History
Tobacco: Former Smoker
Family History
Family History: Reviewed & Not Pertinent
Allergies / Home Medications
Allergy/AdvReac Type Severity Reaction Status Date / Time
COVID-19 vaccine, mRNA, Allergy Hives Verified 03/06/25 17:12
[id number], L
COVID-19 vaccine, mRNA, Allergy Hives Verified 03/06/25 17:12
[id number],
latex Allergy Rash Verified 03/06/25 17:12
Sulfa (Sulfonamide Allergy Hives Verified 03/06/25 17:12
Antibiotics)
�Medication �Instructions �Recorded �Confirmed �Type
bisoprolol fumarate 5 mg tablet 5 mg PO DAILY 05/18/19 03/06/25 History
carbidopa 25 mg-levodopa 100 mg 1 ea PO 0600,1000,1400,1800 05/18/19 03/06/25 History
tablet
estradiol 0.01% (0.1 mg/gram) 1 applic S .TWICE PER WEEK 05/18/19 05/18/19 History
vaginal cream
rasagiline 1 mg tablet 1 mg PO DAILY 05/18/19 03/06/25 History
lisinopril 10 mg tablet 10 mg PO DAILY #20 tabs 02/20/20 03/06/25 Rx
amlodipine 2.5 mg tablet 2.5 mg PO DAILY #30 tabs 01/12/23 03/06/25 Rx
carbidopa 25 mg-levodopa 100 mg 1 tab PO HS 03/06/25 03/06/25 History
tablet
famotidine 20 mg tablet 20 mg PO DAILY 03/06/25 03/06/25 History
Review of Systems
-
History Source: Patient
All other systems: Negative unless noted
Physical Exam
Vital Signs
Temp Pulse Resp BP Pulse Ox
100.7 F H 88 17 93/56 97
03/07/25 05:52 03/07/25 09:30 03/07/25 09:30 03/07/25 09:00 03/07/25 09:30
Lab Results
03/07/25 03:27
03/07/25 03:27
Troponin I 0.067 ng/ml H* D 03/07/25 09:11
Physical Exam
General: Well Developed, No Apparent Distress and Other (frail)
HEENT: Normocephalic and Moist Mucous Membranes
Respiratory: Clear and Non Labored Respirations
Cardiac: S1/S2 and Regular Rhythm
Breast: Deferred by me
GI: Soft, Non Tender and Normal Bowel Sounds
Rectal: Deferred by Provider
Musculoskeletal: No Clubbing, No Cyanosis and No Edema
Skin: Warm and Dry
Neuro: AO x 3
Hematologic/Lymphatic: No Lymphadenopathy
Psych: Calm
Impression / Plan
-
Afib - new onset, duration unknown.
- rapid rates 140s initially.
- treated with IV Diltiazem and converted to NSR after about 1.5 hours.
- [id number] score is 4 (age, female, HTN).
- recommend Eliquis 5mg BID.
- check echo.
- will stop IV Diltiazem and increase bisoprolol to 10mg.
HTN - low BP with IV Diltiazem drip.
- stop Diltiazem and monitor.
- will increase bisoprolol to 10mg daily.
- stop Amlodipine.
- monitor BP.
CAD - nonobstructive on cath 01/2014.
- denies angina.
Mitral regurgitation - mild on echo 03/2020.
- update echo.
Diarrhea/abdominal pain - intermittent for 1 month.
- stool sample/culture.
- per hospitalist.
Data Reviewed
-
EKG: Tracing Personally Visualized and interpreted (Afib 143 bpm)
Labs: Labs Reviewed by me
Old Records: Reviewed
[2025-03-07] MEDS: ZEBETA PO (10:22)
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
--- NOTE | 2025-03-07 12:03 | CON.ID ---
Consultation
-
Date/Time Consultation Requested: March 07, 2025 1130
Date/Time Consultation Performed: March 07, 2025 1200
Requesting Provider: Dr. Violette Monge
Performing Provider: Dr. Mela Cunningham
Reason for Consultation: C. difficile colitis
Chief Complaint / Past History
Chief Complaint
Diarrhea
History of Present Illness
79-year-old female with history of Parkinson's, splenectomy, C. difficile in 2023 who presented to the ER last night due to more than 1 month history of diarrhea. She reports she received ciprofloxacin for UIT in early December.. Subsequently she
developed diarrhea late December. 01/17/25 stool C. diff NAAT x 3 negative. Symptoms progressively worse. Stool up to 5 times a day. Stool sometimes watery, sometimes loose. She has abdominal cramping. Appetite poor. She has lost about 10 pounds
during this time. She was getting progressively weak. Also positive dizziness. Positive chills. In the ER temperature 100.7, white count 18.5, BP soft. Patient developed new onset atrial fibrillation. This morning the stool for C. difficile
came back positive. Patient is on Zosyn and oral vancomycin.
Past History
Additional Past Medical History:
Parkinson's
Hypertension
CAD
Splenectomy due to trauma age 25
HCV from blood transfusion s/p treatment, resolved
Anxiety/depression
Osteoporosis
C. diff x1 2023
Allergy History:
COVID-19 vaccine, mRNA, [id number], L Allergy (Verified 03/06/25 17:12)
Hives
COVID-19 vaccine, mRNA, [id number], Allergy (Verified 03/06/25 17:12)
Hives
latex Allergy (Verified 03/06/25 17:12)
Rash
Sulfa (Sulfonamide Antibiotics) Allergy (Verified 03/06/25 17:12)
Hives
Medications Reviewed: Yes
Current Antibiotics:
P.o. vancomycin
Zosyn
Social History
Tobacco: Non-Smoker
Alcohol: None
Drug: None
Personal:
Living: With Family
Family History
Family History: Not Pertinent
Review of Systems
Review of Systems
General: Chills and Change in Appetite
HEENT: Negative Lymphadenopathy, Stiff Neck, Sinus Problems or Headache
Cardiovascular: Negative Edema
Respiratory: Negative Dyspnea or Cough
Gasteroenterology: Diarrhea; Negative Nausea or Vomiting
Genital / Urological: Negative Dysuria or Flank Pain
Endocrine: Weakness and Fatigue
Neurological: Dizziness
All systems: All other systems were reviewed and were negative
Vital Signs
Temp Pulse Resp BP Pulse Ox
100.7 F H 93 24 95/68 92
03/07/25 05:52 03/07/25 10:45 03/07/25 10:45 03/07/25 10:22 03/07/25 10:45
Selected Entries
03/07/25
05:52
Temp 100.7 F H
Physical Exam
Physical Exam
Constitutional: Acutely Ill and Cachetic
Eyes: No Conjunctival Hemorrhage and Sclera Anicteric
Cardiovascular: Irregular Rate and S1/S2
Pulmonary: Clear
Gastrointestinal: Soft, Non Tender, Non Distended and Normal Bowel Sounds
Genito-Urinary: Negative CVA Tenderness
Extremities: Negative Edema
Neurological: Awake
Lab / Diagnostic Study Results
03/07/25 03:27
03/07/25 03:27
Total Counted 100 03/06/25 17:19
Abs Neuts (Manual) 17.0 10^3/uL (1.4-6.5) H 03/06/25 17:19
Segmented Neutrophils 81 % (42-75) H 03/06/25 17:19
Band Neutrophils 11 % (0-3) H 03/06/25 17:19
Lymphocytes (Manual) 4 % (20-51) L 03/06/25 17:19
Lactic Acid 1.2 mmol/L (0.7-2.0) 03/07/25 01:16
Ur Squamous Epith Cells >30 /LPF (Few) 03/06/25 22:30
Microbiology Results
Micro:
03/07/25 06:23 Cryptosporidium/Giardia - Final
Feces/Stool Negative for Cryptosporidium and/or Giardia Lamblia
antigens.
03/07/25 06:23 C. difficile GDH Antigen & Toxins - Final
Feces/Stool Toxigenic C.difficile Positive
03/06/25 21:13 Blood Culture - Pending
Blood/Venous
03/06/25 18:31 Blood Culture - Pending
Blood/Venous
03/07/25 06:23 Salmonella/Shigella Culture - Pending
Feces/Stool Campylobacter Culture - Pending
Shiga Toxin Test - Pending
03/06/25 22:30 Urine Culture - Pending
Urine
Assessment / Plan
# C. difficile diarrhea
# Fever
#Leukocytosis
# Volume depletion due to diarrhea, poor appetite.
# New onset Afib.
- DC Zosyn
- Replace po vancomycin with fidaxomicin 200mg po bid.
- Supportive care.
- Follow clinically.
- Trend temps/wbc
- Enhanced contact isolation.
[2025-03-07] MEDS: FIRVANQ 125 MG PO (12:18)
[2025-03-07 17:52] LABS: APTT 29.3 Sec (23.4-35.0)
[2025-03-07 18:07] LABS: Troponin I 0.066 ng/ml
[2025-03-07] MEDS: HEPARIN 2700 UNITS IV (18:14)
[2025-03-07] MEDS: HEPARIN 25000 UNITS/250 ML IV (18:15)
[2025-03-07 18:30] LABS: Hematocrit 30.7 % (37.0-47.0); Hemoglobin 10.7 g/dL (12.0-16.0); Mean Corp Hgb Conc. 34.9 g/dL (33.0-37.0); Mean Corpuscular Volume 95.6 fL (81.0-99.0); Platelet Count 213 10^3/uL (130-400); Red Cell Dist. Width 13.2 % (11.5-14.5)
--- NOTE | 2025-03-07 18:45 | PTCARENOTE ---
Pt received from ED. On enhanced precautions for positive c.diff with multiple watery BMs upon arrival. Pt had temp 101.1F on arrival to unit. PRN tylenol administered. Pt disoriented to place and having confused conversation. Labs drawn and sent to
lab. PTT 29.3. Heparin gtt ordered and administered- initial rate 5.5 with initial bolus ->see MAR. Pt NPO at this time or testing. bed alarm is in place. POC ongoing.
--- NOTE | 2025-03-07 20:15 | PTCARENOTE ---
Patient set off bed alarm, found in bathroom with IV tubing wrapped around her, heparin drip running, and incontinent of stool from the bed into the bathroom. Patient covered in stool. This is now the second time since change of shift patient
incontinent of large amount of loose stools throughout the entire room. Heart monitor also off at this time. Patient given soap/water complete bath, face washed, kandace care provided. New gown and linens provided. Tele monitor reapplied, IV tubing
reconnected to patient and heparin drip restarted. Patient informed of the risks of anticoagulation and falls, and also of spreading CDiff, patient verbalizes understanding, however does appear to be forgetful at this time. Ambulated back to side of
bed and needing to have another BM, set up with BSC. Will monitor.
[2025-03-07] MEDS: MIRAPEX 0.25 MG PO (20:43)
[2025-03-07] MEDS: MELATONIN 5 MG PO (20:43)
[2025-03-07] MEDS: DIFICID 200 MG PO (21:06)
[2025-03-08] VITALS (8 sets, daily range): BP systolic 98–136; BP diastolic 67–89; PULSE 92
[2025-03-08 01:32] LABS: APTT 51.2 Sec (23.4-35.0)
[2025-03-08] MEDS: NSS 1000 IV (06:20)
[2025-03-08] MEDS: SINEMET 25-100 1 TABLET PO ×5 (06:21→21:40)
[2025-03-08] MEDS: OSCAL 500 + D 500 MG PO ×3 (08:40→21:38)
[2025-03-08] MEDS: ZEBETA 5 MG PO ×2 (08:40→15:13)
[2025-03-08] MEDS: PEPCID 20 MG PO (08:40)
[2025-03-08] MEDS: OMNIPAQUE 50 ML PO (08:40)
[2025-03-08] MEDS: DIFICID 200 MG PO ×2 (08:40→21:40)
[2025-03-08] MEDS: RASAGILINE MESYLATE 1 MG PO (08:41)
--- NOTE | 2025-03-08 09:06 | W.PN.HOSP.TC ---
Today's Communication/Plan
-
see bold
Assessment / Plan
Assessment / Plan
HPI: 79-year-old presenting with 1 month of diarrhea, weakness and found to have significant hyponatremia, hypocalcium, leukocytosis and bandemia. She is afebrile here. No diarrhea to find emergency department. She is nontoxic-appearing. Known
history of C. difficile. No recent antibiotic use. Exposure to well water but no order or household members with diarrhea or similar symptoms. She is dehydrated with elevated lactic acid and has had 15 pound weight loss recently.
#Sepsis
#C. difficile colitis
Appreciate GI input, CT abdomen and pelvis shows pancolitis
Appreciate ID input, recommend dificid/fidaxomicin 200 mg p.o. twice daily D2
Continue IV fluids, trend fever and white count
#Hyponatremia, suspect hypovolemic
Sodium normalized with IV fluids
#Hypotension
Hold home amlodipine, hold lisinopril
Continue IV fluids
#New onset atrial fibrillation with controlled rate
Appreciate cardiology input, recommend Eliquis 5 mg twice a day vs IV heparin drip
Stopped IV diltiazem, increase bisoprolol to 10 mg daily
#Elevated troponin
Likely due to sepsis, monitor
#Parkinson disease
Continue Sinemet
#Hypocalcemia
Vitamin D levels normal, follow-up PTH intact
Replete by IV today
DVT prophylaxis�subcu Lovenox
Full code
Total time spent to see the patient on the floor, examine the patient, review data and lab results, discuss treatment plan with patient, nursing staff around 51 minutes.
Physical Exam
General: Appears to not feel well, no acute distress
HEENT: Normocephalic, Atraumatic, EOMI, MMM
Respiratory: Clear to Auscultation bilaterally
Cardiac: Normal S1/S2, Regular Rate and Rhythm
GI: Soft, diffusely tender, Nondistended, Normal Bowel Sounds
Extremities: No Clubbing, Cyanosis, or Edema
Anticipated Discharge: > 48 hours
Subjective/Interval History
-
Date of Service: March 08, 2025
Patient states her abdominal pain has improved. She continues to have diarrhea, liquid brown/green. Denies nausea, denies vomiting.
Objective Data
-
Labs:
Laboratory Results
03/08/25 03/08/25
01:11 08:23
WBC Pending
Hgb Pending
Hct Pending
Plt Count Pending
APTT 51.2 H Pending
Sodium Pending
Potassium Pending
Chloride Pending
Carbon Dioxide Pending
BUN Pending
Creatinine Pending
Glucose Pending
Calcium Pending
Vital Signs:
Vital Signs
Temp Pulse Resp BP Pulse Ox
98.1 F 109 16 110/67 98
03/08/25 07:00 03/08/25 07:00 03/08/25 07:00 03/08/25 07:00 03/08/25 07:00
I&O
03/07/25 03/08/25 03/09/25
06:59 06:59 06:59
Intake Total 1700 / 1700
Balance 1700 / 1700
[2025-03-08 09:49] LABS: APTT 52.3 Sec (23.4-35.0)
[2025-03-08 09:50] LABS: Hematocrit 36.3 % (37.0-47.0); Hemoglobin 12.2 g/dL (12.0-16.0); Mean Corp Hgb Conc. 33.6 g/dL (33.0-37.0); Mean Corpuscular Volume 99.2 fL (81.0-99.0); Platelet Count 270 10^3/uL (130-400); Red Cell Dist. Width 13.6 % (11.5-14.5)
[2025-03-08 10:12] LABS: Blood Urea Nitrogen 38 mg/dl (7-17); Calcium 6.5 mg/dl (8.4-10.2); Carbon Dioxide 17 mmol/L (22-30); Chloride 108 mmol/L (98-107); Estimated Creatinine Clearance 42 ml/min; Glucose 67 mg/dl (70-99); Magnesium 2.1 mg/dl (1.6-2.3); Potassium 3.9 mmol/L (3.5-5.1); Sodium 135 mmol/L (135-145); eGFR > 60.00
--- NOTE | 2025-03-08 11:50 | W.PN.ID1 ---
Date of Service
Date of Service: March 08, 2025
Today's Communication
Continue fidaxomicin.
Assessment / Plan
# C. difficile diarrhea (2nd episode 18 months apart)
# Fever
#Leukocytosis - trending down
# New onset Afib.
-Bcx's x 2 neg to date
- CT a/p pending
- Continue fidaxomicin 200mg po bid (d2).
- Supportive care.
- Follow stool output
- Trend temps/wbc
- Enhanced contact isolation.
Chief Complaint
-: C-diff
Subjective / Review of Systems
at bedside.
Diarrhea all night.
Vital Signs / Physical Exam
Vital Signs
Vital Signs
Temp Pulse Resp BP Pulse Ox
98.1 F 109 16 110/67 98
03/08/25 07:00 03/08/25 08:40 03/08/25 07:00 03/08/25 08:40 03/08/25 07:00
Selected Entries
03/07/25
15:43
Temp 101.1 F H
Physical Exam
Constitutional: Acutely Ill and Cachetic
Cardiovascular: S1/S2 (tachycardic)
Pulmonary: Clear
Gastrointestinal: Soft, Non Tender, Distended (mild) and Decreased Bowel Sounds
Extremities: Negative Edema
Neurological: AO x 3
Objective Data
Lab Data
Lab Results
03/08/25 08:23
03/08/25 08:23
APTT Cancelled 03/08/25 14:30
Estimated Creat Clear 42 ml/min 03/08/25 08:23
Lactic Acid 1.2 mmol/L (0.7-2.0) 03/07/25 01:16
Total Bilirubin 0.9 mg/dl (0.2-1.3) 03/06/25 17:19
AST 29 U/L (14-36) 03/06/25 17:19
ALT < 10 U/L (0-35) 03/06/25 17:19
Alkaline Phosphatase 66 U/L (38-126) 03/06/25 17:19
Most recent labs reviewed.
Micro Results:
03/07/25 06:23 Salmonella/Shigella Culture - Preliminary
Feces/Stool Culture in Progress
Campylobacter Culture - Preliminary
Culture in Progress
Shiga Toxin Test - Pending
03/06/25 22:30 Urine Culture - Final
Urine
03/06/25 21:13 Blood Culture - Preliminary
Blood/Venous No Growth in 24 hours- Final report to follow
03/06/25 18:31 Blood Culture - Preliminary
Blood/Venous No Growth in 24 hours- Final report to follow
03/07/25 06:23 Cryptosporidium/Giardia - Final
Feces/Stool Negative for Cryptosporidium and/or Giardia Lamblia
antigens.
03/07/25 06:23 C. difficile GDH Antigen & Toxins - Final
Feces/Stool Toxigenic C.difficile Positive
[2025-03-08] MEDS: CALCIUM GLUCONATE 290 MG IV (12:12)
[2025-03-08] MEDS: D5/0.9% SODIUM CHLORIDE 1000 IV ×2 (15:06→22:53)
--- NOTE | 2025-03-08 15:51 | W.PN.CD ---
Today's Communication / Plan
-
iv heparin renewed
monitor bp on increased bb
echo monday
Impression / Plan
-
Afib - new onset, duration unknown.
- rapid rates 140s initially.
- treated with IV Diltiazem and converted to NSR after about 1.5 hours.
- [id number] score is 4 (age, female, HTN).
- recommend Eliquis 5mg BID when clinical course is clear
- check echo.
- bisoprolol increased to 10mg.
HTN - bp is improved
-continue bisoprolol now 10mg daily.
- stop Amlodipine.
- monitor BP.
Nonischemic myocardial injury 2/2 to acute illness and tachycarrhythmia.
-peak on admit
-treat underlying illness
CAD - nonobstructive on cath 01/2014.
- denies angina.
Mitral regurgitation - mild on echo 03/2020.
- update echo.
C Diff pancolitis.
-care per gi, id and medicine
Physical Exam
Vital Signs/Labs
Vital Signs
Temp Pulse Resp BP Pulse Ox
97.3 F 89 18 114/76 95
03/08/25 15:22 03/08/25 15:22 03/08/25 15:22 03/08/25 15:22 03/08/25 15:22
03/07/25 03/08/25 03/09/25
06:59 06:59 06:59
Actual Weight 99 lb 3.328 oz
03/08/25 08:23
03/08/25 08:23
APTT Cancelled 03/08/25 14:30
Magnesium 2.1 mg/dl (1.6-2.3) 03/08/25 08:23
TSH 1.27 uIU/ml (0.47-4.68) 03/07/25 03:27
LAB Results
03/07/25 03/07/25 03/07/25
03:28 09:11 17:32
Troponin I 0.020 0.067 H* D 0.066 H*
Data Reviewed
-
Date of Service: March 08, 2025
Medical Decision Making: Review of Case with other Provider (continue heparin and bb )
EKG: Other (sinus with pvcs at times bigeminy)
[2025-03-08 17:08] LABS: APTT 84.7 Sec (23.4-35.0)
[2025-03-08] MEDS: MIRAPEX 0.25 MG PO (21:38)
[2025-03-08] MEDS: MELATONIN 5 MG PO (21:38)
[2025-03-08] MEDS: ATIVAN 0.5 MG PO (21:40)
[2025-03-08 23:22] LABS: APTT 77.6 Sec (23.4-35.0)
[2025-03-09] MEDS: D5/0.9% SODIUM CHLORIDE 1000 IV ×3 (03:29→21:18)
[2025-03-09] MEDS: HEPARIN 25000 UNITS/250 ML IV (03:29)
[2025-03-09 03:46] VITALS: BP 104/74
--- NOTE | 2025-03-09 04:01 | PTCARENOTE ---
Addendum entered by Shelley Palma RN 03/09/25 05:19:
One time dose Risperdal ordered after discussion with [facility] - obtained and provided to patient.
Original Note:
This RN in to turn patient and assess restraints, observed fecal management system hanging over the side rail of the bed. Patient at first states 'I don't know how that happened.' Later in conversation states 'I think I know how that happened, I
just beared down really hard.' Patient continues to be restless and moves around in bed throughout shift, does not appear to have slept at all thus far. Patient cleaned, new gown applied, and bed changed. Restraints repositioned with help of second
RN. Patient at this time trying to kick both RNs while performing care. Repositioned in bed. call alcantara in reach. Will monitor.
[2025-03-09] MEDS: RISPERDAL M-TAB (ORALLY DISINTEGRATING) 0.25 MG PO (04:50)
[2025-03-09] MEDS: SINEMET 25-100 1 TABLET PO ×5 (06:03→23:07)
[2025-03-09 06:57] LABS: Hematocrit 36.8 % (37.0-47.0); Hemoglobin 13.0 g/dL (12.0-16.0); Mean Corp Hgb Conc. 35.3 g/dL (33.0-37.0); Mean Corpuscular Volume 97.4 fL (81.0-99.0); Platelet Count 284 10^3/uL (130-400); Red Cell Dist. Width 13.1 % (11.5-14.5)
[2025-03-09 07:00] VITALS: BP 101/67
[2025-03-09 07:02] LABS: APTT 77.2 Sec (23.4-35.0)
[2025-03-09 07:34] LABS: Blood Urea Nitrogen 32 mg/dl (7-17); Calcium 7.6 mg/dl (8.4-10.2); Carbon Dioxide 18 mmol/L (22-30); Chloride 109 mmol/L (98-107); Estimated Creatinine Clearance 48 ml/min; Glucose 176 mg/dl (70-99); Potassium 3.1 mmol/L (3.5-5.1); Sodium 133 mmol/L (135-145); eGFR > 60.00
--- NOTE | 2025-03-09 09:41 | W.PN.CD ---
Today's Communication / Plan
-
replete k
continue bb
hep gtt, ok to transition to eliquis when ok with medicine and gi.
Impression / Plan
-
Afib - new onset, duration unknown.
- rapid rates 140s initially, back in NSR
- [id number] score is 4 (age, female, HTN).
- continue heparin gtt with intensive monitoring
-recommend Eliquis 5mg BID when clinical course is clear
- check echo.
- bisoprolol increased to 10mg.
HTN - bp is improved
-continue bisoprolol now 10mg daily. Holding parameters in place
- stop Amlodipine.
- monitor BP.
Nonischemic myocardial injury 2/2 to acute illness and tachyarrhythmia.
-peak on admit
-treat underlying illness
PVCs: at times bigeminy, continue bb
-replete k
CAD - nonobstructive on cath 01/2014.
- denies angina.
Mitral regurgitation - mild on echo 03/2020.
- update echo.
C Diff pancolitis.
-care per gi, id and medicine
Physical Exam
Vital Signs/Labs
Vital Signs
Temp Pulse Resp BP Pulse Ox
97.6 F 102 16 101/67 95
03/09/25 07:00 03/09/25 07:00 03/09/25 07:00 03/09/25 07:00 03/09/25 07:00
03/09/25 06:29
03/09/25 06:29
APTT 77.2 Sec (23.4-35.0) H 03/09/25 06:29
Magnesium 2.1 mg/dl (1.6-2.3) 03/08/25 08:23
TSH 1.27 uIU/ml (0.47-4.68) 03/07/25 03:27
LAB Results
03/07/25 03/07/25 03/07/25
03:28 09:11 17:32
Troponin I 0.020 0.067 H* D 0.066 H*
Physical Exam
Constitutional: No acute distress and Comfortable
Cardiovascular: Rhythm & rate is regular, Pedal edema is absent, JVD pressure is normal and Systolic murmur absent
Respiratory: Respiratory effort normal, Lungs clear to auscul., Wheeze Absent, Crackles Absent, Rhonchi Absent and Labored respirations
Neuro/Psych: AO x 3
Data Reviewed
-
Date of Service: March 09, 2025
Medical Decision Making: Review of Case with other Provider (Dr Monge give Kcl, continue current medication)
EKG: Other (tele sinus tachycardia with pvcs)
[2025-03-09] MEDS: OSCAL 500 + D 500 MG PO ×3 (09:50→23:13)
[2025-03-09] MEDS: PEPCID 20 MG PO (09:50)
[2025-03-09] MEDS: DIFICID 200 MG PO ×2 (09:50→20:21)
[2025-03-09] MEDS: ZEBETA 10 MG PO (09:52)
[2025-03-09] MEDS: KCL 40 MEQ PO ×3 (09:56→23:05)
[2025-03-09] MEDS: RASAGILINE MESYLATE 1 MG PO (09:56)
--- NOTE | 2025-03-09 10:00 | PTCARENOTE ---
Pt appears calm at this time with @bedside. Restraints removed at this time. Bed alarm in place.
--- NOTE | 2025-03-09 10:48 | W.PN.HOSP.TC ---
Today's Communication/Plan
-
see bold
Assessment / Plan
Assessment / Plan
HPI: 79-year-old presenting with 1 month of diarrhea, weakness and found to have significant hyponatremia, hypocalcium, leukocytosis and bandemia. She is afebrile here. No diarrhea to find emergency department. She is nontoxic-appearing. Known
history of C. difficile. No recent antibiotic use. Exposure to well water but no order or household members with diarrhea or similar symptoms. She is dehydrated with elevated lactic acid and has had 15 pound weight loss recently.
#Sepsis
#C. difficile colitis
Appreciate GI input, CT abdomen and pelvis shows pancolitis
Appreciate ID input, recommend dificid/fidaxomicin 200 mg p.o. twice daily D3, IV flagyl added 03/09
Continue IV fluids, trend fever and white count
#Hypokalemia
Replete with potassium chloride 40 mill equivalents p.o. x 2
Magnesium normal
#Hyponatremia, suspect hypovolemic
Sodium improved with IV fluids
#Hypotension
Hold home amlodipine, hold lisinopril
Continue IV fluids
#New onset atrial fibrillation with controlled rate
Appreciate cardiology input, change IV heparin drip to Eliquis
Stopped IV diltiazem, increase bisoprolol to 10 mg daily
#Elevated troponin
Likely due to sepsis, monitor
#Parkinson disease
Continue Sinemet
#Hypocalcemia
Vitamin D levels normal, follow-up PTH intact
Replete by IV today
DVT prophylaxis�subcu Lovenox
Full code
Total time spent to see the patient on the floor, examine the patient, review data and lab results, discuss treatment plan with patient, nursing staff around 50 minutes.
Physical Exam
General: Appears to not feel well, no acute distress
HEENT: Normocephalic, Atraumatic, EOMI, MMM
Respiratory: Clear to Auscultation bilaterally
Cardiac: Normal S1/S2, Regular Rate and Rhythm
GI: Soft, diffusely tender, Nondistended, Normal Bowel Sounds
Extremities: No Clubbing, Cyanosis, or Edema
Anticipated Discharge: > 48 hours
Subjective/Interval History
-
Date of Service: March 09, 2025
Patient reports improvement in her abdominal pain. She continues to have persistent diarrhea. She feels tired. Denies chest pain, denies shortness of breath. No fever, no vomiting.
Objective Data
-
Labs:
Laboratory Results
03/08/25 03/09/25
23:04 06:29
WBC 20.6 H
Hgb 13.0
Hct 36.8 L
Plt Count 284
APTT 77.6 H 77.2 H
Sodium 133 L
Potassium 3.1 L
Chloride 109 H
Carbon Dioxide 18 L
BUN 32 H
Creatinine 0.7
Glucose 176 H
Calcium 7.6 L
Vital Signs:
Vital Signs
Temp Pulse Resp BP Pulse Ox
97.6 F 102 16 101/67 95
03/09/25 07:00 03/09/25 09:52 03/09/25 07:00 03/09/25 09:52 03/09/25 07:00
I&O
03/08/25 03/09/25 03/10/25
06:59 06:59 06:59
Intake Total 1700 / 1700 3020 / 3020
Balance 1700 / 1700 3020 / 3020
[2025-03-09 11:00] VITALS: BP 128/76
[2025-03-09 11:20] LABS: Magnesium 1.9 mg/dl (1.6-2.3)
--- NOTE | 2025-03-09 12:06 | W.PN.GI.CBS2 ---
Today's Communication / Plan
-
Continue current Rx
Assessment / Plan
-
79-year-old female past medical history of hypertension, Parkinson's disease, hepatitis C, anxiety, depression, history of C. difficile, history of splenectomy presents to the emergency room with weakness inability to walk, 15 pound weight loss
unintentional decreased oral intake and diarrhea. Asked to evaluate for C. difficile colitis and sepsis. Patient with history of diarrhea since end december. Apparently as an outpatient this was negative for C. difficile. Treated with 3
different antibiotics first 1 unknown, second 1 was amoxicillin and third was Cipro. Patient has been using intermittent Pepto and Imodium. Recent flu vaccine on Monday. Decreased p.o. intake. Weakness. [place] feverish and chills. Presents with
leukocytosis, bandemia, hyponatremia, hypocalcemia. Currently C. difficile positive. Went into A-fib with RVR overnight with hypotension. Positive troponin. Cardiology consult pending. Currently on Zosyn and vancomycin orally.
79-year-old female past medical history of hypertension, Parkinson's disease, hepatitis C (treated and eradicated as per patient), anxiety, depression, history of C. difficile
-Generalized weakness/Decreased oral intake/weight loss/diarrhea on admission
-Labs showing leukocytosis with bandemia. Stool C. difficile toxin positive ( 2nd episode )
-New onset A-fib with RVR/elevated troponin
-Hyponatremia
CT abd/pel 03/08
IMPRESSION:
Radiographic appearance of the colon, as described, with pancolitis. The appearance of the accordion sign of wall/calcific haustral fold thickening in this cecum and ascending colon is very suggestive for the diagnosis of pseudomembranous colitis.
No evidence of pneumatosis. No perforation. No distention to suggest toxic megacolon.
Generalized haziness of the mesenteric fat and peritoneal fat, consistent with diffuse edema and third spacing. Mild ascites. No focal collection identified suspicious for abscess.
Probable mild small bowel dysmotility/ileus.
Small bilateral pleural effusions.
plan
ID on board. Currently on fidaxomicin. Blood cx prelim no growth
Tolerating clear liquid diet. Will advance to full liquid diet. Okay to advance to low fat low residual diet as tolerated
No GI procedures planned. Okay to switch anticoagulation to p.o.
Correction of electrolytes per medical team
Continue further care per medical team/ID
No further recommendation. Will sign off
Total Time Spent with Patient (in minutes): 35
Subjective
Subjective
Date of Service: March 09, 2025
Abdominal pain is better. Tolerating clear liquid diet without any vomiting. No fever. Continues to have diarrhea but frequency somewhat improving
Objective
Data Reviewed
Laboratory Data:
Laboratory Results
03/09/25 06:29
03/09/25 06:29
Laboratory Results
APTT 77.2 Sec (23.4-35.0) H 03/09/25 06:29
Phosphorus 3.3 mg/dl (2.5-4.5) 03/08/25 08:23
Magnesium 1.9 mg/dl (1.6-2.3) 03/09/25 06:29
Total Bilirubin 0.9 mg/dl (0.2-1.3) 03/06/25 17:19
AST 29 U/L (14-36) 03/06/25 17:19
ALT < 10 U/L (0-35) 03/06/25 17:19
Alkaline Phosphatase 66 U/L (38-126) 03/06/25 17:19
Lipase 33 U/L (23-300) 03/06/25 17:19
Vital Signs and I&O:
Vital Signs
Temp Pulse Resp BP Pulse Ox
97.5 F 89 16 128/76 96
03/09/25 11:00 03/09/25 11:00 03/09/25 11:00 03/09/25 11:00 03/09/25 11:00
I&O
03/08/25 03/09/25 03/10/25
06:59 06:59 06:59
Intake Total 0 / 1700 3020 / 3020
Balance 0 / 1700 3020 / 302
Physical Exam
Physical Exam
GI: Soft, Distended (Mildly distended) and Non Tender
--- NOTE | 2025-03-09 12:16 | CM ---
Patient seen at bedside
IA Completed
Dx: hypocalcemia
C-diff
PMH: hypertension, Parkinson's disease, hepatitis C, anxiety, depression, history of C. difficile
Lives with her in a 2 story home, [address], 13 steps to bedroom/bathroom, powder room on 1st floor
PLOF: Independent
reports he asssists with medication admin
Denies DME
Denies VN/Rehab
PT rec home health
options reviewed & prefers [facility] - referral placed in [facility]
Notified liaison Tova Jarvis
PCP: Kanchan Ploo
Pharmacy: [facility]
PLAN: Home with [facility] when stable
--- NOTE | 2025-03-09 14:47 | W.PN.ID1 ---
Date of Service
Date of Service: March 09, 2025
Today's Communication
Add IV metronidazole to fidaxomicin.
Assessment / Plan
# C. difficile colitis (2nd episode 18 months apart)
# Fever resolved
#Leukocytosis - trended up
# New onset Afib.
-Bcx's x 2 neg to date
- CT no megacolon
- Continue fidaxomicin 200mg po bid (d3).
- Add short course IV metronidazole.
- Supportive care.
- Follow stool output
- Trend wbc
- Enhanced contact isolation.
# Conditions present on admission
Parkinson's
Hypertension
CAD
Splenectomy due to trauma age 25
HCV from blood transfusion s/p treatment, resolved
Anxiety/depression
Osteoporosis
C. diff x1 2023
Chief Complaint
-: C-diff
Subjective / Review of Systems
Diarrhea somewhat better.
Vital Signs / Physical Exam
Vital Signs
Vital Signs
Temp Pulse Resp BP Pulse Ox
97.5 F 89 16 128/76 96
03/09/25 11:00 03/09/25 11:00 03/09/25 11:00 03/09/25 11:00 03/09/25 12:00
Physical Exam
Constitutional: Acutely Ill and Cachetic
Cardiovascular: S1/S2 (tachycardic)
Pulmonary: Clear
Gastrointestinal: Soft, Non Tender and Distended (mild)
Extremities: Negative Edema
Neurological: AO x 3
Objective Data
Lab Data
Lab Results
03/09/25 06:29
03/09/25 06:29
APTT 77.2 Sec (23.4-35.0) H 03/09/25 06:29
Estimated Creat Clear 48 ml/min 03/09/25 06:29
Lactic Acid 2.1 mmol/L (0.7-2.0) H 03/08/25 12:37
Total Bilirubin 0.9 mg/dl (0.2-1.3) 03/06/25 17:19
AST 29 U/L (14-36) 03/06/25 17:19
ALT < 10 U/L (0-35) 03/06/25 17:19
Alkaline Phosphatase 66 U/L (38-126) 03/06/25 17:19
Most recent labs reviewed.
Micro Results:
03/07/25 06:23 Salmonella/Shigella Culture - Final
Feces/Stool No Salmonella, Shigella, Aeromonas or Plesiomonas species
isolated.
Campylobacter Culture - Final
No Campylobacter species isolated.
Shiga Toxin Test - Pending
03/06/25 21:13 Blood Culture - Preliminary
Blood/Venous No Growth in 48 hours- Final report to follow
03/06/25 18:31 Blood Culture - Preliminary
Blood/Venous No Growth in 48 hours- Final report to follow
03/06/25 22:30 Urine Culture - Final
Urine
03/07/25 06:23 Cryptosporidium/Giardia - Final
Feces/Stool Negative for Cryptosporidium and/or Giardia Lamblia
antigens.
03/07/25 06:23 C. difficile GDH Antigen & Toxins - Final
Feces/Stool Toxigenic C.difficile Positive
03/08/25 CT a/p: Radiographic appearance of the colon, as described, with pancolitis. The appearance of the accordion sign of wall/calcific haustral fold thickening in this cecum and ascending colon is very suggestive for the diagnosis of
pseudomembranous colitis. No evidence of pneumatosis. No perforation. No distention to suggest toxic megacolon.
[2025-03-09] MEDS: FLAGYL 750 MG 150 IV ×2 (14:59→23:54)
[2025-03-09 15:00] VITALS: BP 135/89
[2025-03-09] MEDS: CALCIUM GLUCONATE 100 IV (16:10)
[2025-03-09 19:00] VITALS: BP 149/90
[2025-03-09] MEDS: ELIQUIS 5 MG PO (20:21)
[2025-03-09 23:00] VITALS: BP 136/80
[2025-03-09] MEDS: MELATONIN 5 MG PO (23:05)
[2025-03-09] MEDS: MIRAPEX 0.25 MG PO (23:13)
[2025-03-09] MEDS: ATIVAN 0.5 MG PO (23:15)
[2025-03-10 03:00] VITALS: BP 154/84
[2025-03-10 07:00] VITALS: BP 163/91
[2025-03-10] MEDS: FLAGYL 750 MG 150 IV ×3 (07:29→21:11)
[2025-03-10] MEDS: SINEMET 25-100 1 TABLET PO ×5 (07:30→21:12)
[2025-03-10 08:19] LABS: Hematocrit 36.3 % (37.0-47.0); Hemoglobin 12.5 g/dL (12.0-16.0); Mean Corp Hgb Conc. 34.4 g/dL (33.0-37.0); Mean Corpuscular Volume 97.6 fL (81.0-99.0); Platelet Count 262 10^3/uL (130-400); Red Cell Dist. Width 13.9 % (11.5-14.5)
[2025-03-10] MEDS: ZEBETA 10 MG PO (08:21)
[2025-03-10] MEDS: DIFICID 200 MG PO ×2 (08:21→20:18)
[2025-03-10] MEDS: PEPCID 20 MG PO (08:22)
[2025-03-10] MEDS: OSCAL 500 + D 500 MG PO ×3 (08:22→21:12)
[2025-03-10] MEDS: RASAGILINE MESYLATE 1 MG PO (08:25)
[2025-03-10] MEDS: ELIQUIS 5 MG PO ×2 (08:27→20:18)
[2025-03-10 09:13] LABS: ALT (SGPT) < 10 U/L (0-35); AST (SGOT) 45 U/L (14-36); Albumin 2.8 g/dl (3.5-5.0); Alkaline Phosphatase 88 U/L (38-126); Blood Urea Nitrogen 18 mg/dl (7-17); Calcium 8.0 mg/dl (8.4-10.2); Carbon Dioxide 20 mmol/L (22-30); Chloride 112 mmol/L (98-107); Estimated Creatinine Clearance 56 ml/min; Glucose 127 mg/dl (70-99); Magnesium 1.8 mg/dl (1.6-2.3); Potassium 4.1 mmol/L (3.5-5.1); Sodium 138 mmol/L (135-145); Total Protein 5.2 g/dl (6.3-8.2); eGFR > 60.00
--- NOTE | 2025-03-10 10:12 | W.PN.HOSP.TC ---
Addendum entered and electronically signed by Dashawn Back MD 03/10/25 14:02:
Patient has a medical condition that requires positioning of the body in ways not feasible with an ordinary bed and requires frequent changes in body position and has an immediate need for change in position (which requires a hospital bed).
Original Note:
Today's Communication/Plan
-
see plan
Assessment / Plan
Assessment / Plan
79-year-old presenting with 1 month of diarrhea, weakness and found to have significant hyponatremia, hypocalcium, leukocytosis and bandemia. She is afebrile here. No diarrhea to find emergency department. She is nontoxic-appearing. Known
history of C. difficile. No recent antibiotic use. Exposure to well water but no order or household members with diarrhea or similar symptoms. She is dehydrated with elevated lactic acid and has had 15 pound weight loss recently.
Gen: NAD, AAOx3.
Eyes: EOMI, PERRLA, no scleral icterus.
Neck: supple.
CV: RRR, +S1/S2, no m/r/g.
Resp: CTAB, no rales, wheezes, or rhonchi.
Abd: +BS, soft, NT, ND
Skin: No rashes.
Neuro: CN 2-12 intact, non-focal.
Psych: Normal mood and affect.
CT A/P: Pancolitis. The appearance of the accordion sign of wall/calcific haustral fold thickening in this cecum and ascending colon is very suggestive for the diagnosis of pseudomembranous colitis. No evidence of pneumatosis. No perforation. No
distention to suggest toxic megacolon. Generalized haziness of the mesenteric fat and peritoneal fat, consistent with diffuse edema and third spacing. Mild ascites. No focal collection identified suspicious for abscess. Probable mild small bowel
dysmotility/ileus. Small bilateral pleural effusions. There appear to be multiple splenic components, as described. Correlate with clinical history of prior surgery or trauma.
Sepsis due to acute C. difficile colitis:
-Leukocytosis improving, frequency of diarrhea improving
-hypotension has resolved
-Currently afebrile and hemodynamically stable
-cont IVFs
-cont Dificid/flagyl as per ID
New onset afib:
-cont Eliquis/bisoprolol
Other problems:
Hypokalemia, resolved
Hyponatremia, resolved
Hypophosphatemia, replete IV
Essential HTN: resume home Norvasc
Elevated troponin is nonischemic myocardial injury due to sepsis
Parkinson disease: cont Sinemet
Hypocalcemia, resolved (corrected Ca normal)
FULL/Lovenox
Anticipated Discharge: 24 - 48 hours
Subjective/Interval History
-
Date of Service: March 10, 2025
Patient reports frequency of diarrhea is improving. Denies abdominal pain.
Objective Data
-
Labs:
Laboratory Results
03/10/25
07:02
WBC 16.9 H
Hgb 12.5
Hct 36.3 L
Plt Count 262
Sodium 138
Potassium 4.1 D
Chloride 112 H
Carbon Dioxide 20 L
BUN 18 H
Creatinine 0.6
Glucose 127 H
Calcium 8.0 L
Total Bilirubin 0.5
AST 45 H
ALT < 10
Alkaline Phosphatase 88
Vital Signs:
Vital Signs
Temp Pulse Resp BP Pulse Ox
97.3 F 101 17 163/91 95
03/10/25 07:00 03/10/25 08:21 03/10/25 07:00 03/10/25 08:21 03/10/25 07:00
I&O
03/09/25 03/10/25 03/11/25
06:59 06:59 06:59
Intake Total 3020 / 3020 600 / 600
Balance 3020 / 3020 600 / 600
--- NOTE | 2025-03-10 10:45 | VNURNOTE ---
Addendum entered by Adela Costa RN 03/10/25 14:31:
Rec'ed update that spouse requesting a hospital bed. This author met with him and patient again. Explained that I am happy to help with hosp bed coordination. I explained that it typically takes 1-2 days for coordination/delivery for hospital
beds. Spouse agreeable. Clinicals, Rx faxed to [facility]. Spoke w/rep Reinaldo to alert him of request. Faxed to [phone].
Rolling walker Rx on pt's chart. To be provided by PT .
Original Note:
Home Health Liaison met with patient and spouse at bedside to discuss [facility] nurse/therapy, visits, schedule and homebound status. Patient is agreeable and understands that visits at home will be 2-3 x per week to assess and teach medical
management. Patient is aware that [facility] will contact them for start of care in 1-2 days after discharge from . Provided contact number for [facility].
[facility] referral [facility].
--- NOTE | 2025-03-10 10:49 | W.PN.CD ---
Today's Communication / Plan
-
Add losartan
For Echo
Impression / Plan
-
C Diff pancolitis
- care per gi, id and medicine
- I reviewed the relationship of ATB and subsequent C Dif
- Diarrhea improving
New Paroxysmal AFib
- Brief AFib with RVR was seen on 03/07/2025
- Rhythm: In sinus since
- Rate: Fine in sinus, BB dose has been increased new onset, duration unknown.
- Anticoagulation: Now on Eliquis 5 BID: age 79, Cr 0.6, note Weight is only 45 kg
- [id number] score is 4 (age, female, HTN)
- I reviewed risks of anticoagulation and signs and symptoms of RN [employer]Y [employer] and GI bleeding
HTN, now hypertensive
- Instead of resuming amlodipine will use ARB
- Amlodipine does interact with Eliquis mildly
Nonischemic myocardial injury from acute illness and tachyarrhythmia, peak trop 0.067
PVCs, on BB
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
Mitral regurgitation, mild on echo 03/2020.
Subjective:
No CP or palps. Less diarrhea.
Physical Exam
Vital Signs/Labs
Vital Signs
Temp Pulse Resp BP Pulse Ox
97.3 F 101 17 163/91 95
03/10/25 07:00 03/10/25 08:21 03/10/25 07:00 03/10/25 08:21 03/10/25 07:00
03/10/25 07:02
03/10/25 07:02
APTT 77.2 Sec (23.4-35.0) H 03/09/25 06:29
Magnesium 1.8 mg/dl (1.6-2.3) 03/10/25 07:02
TSH 1.27 uIU/ml (0.47-4.68) 03/07/25 03:27
LAB Results
03/07/25
17:32
Troponin I 0.066 H*
Physical Exam
Constitutional: No acute distress
EENT: Anicteric
Cardiovascular: Rhythm & rate is regular
Respiratory: Respiratory effort normal
GI: Distention absent
Neuro/Psych: AO x 3
Data Reviewed
-
Date of Service: March 10, 2025
[2025-03-10 11:00] VITALS: BP 151/91
[2025-03-10] MEDS: COZAAR 50 MG PO (11:23)
[2025-03-10] MEDS: NORVASC 2.5 MG PO (11:23)
--- NOTE | 2025-03-10 12:11 | W.PN.ID1 ---
Date of Service
Date of Service: March 10, 2025
Today's Communication
Continue fidaxomicin and metronidazole.
Assessment / Plan
# C. difficile colitis (2nd episode 18 months apart)
# Fever resolved
#Leukocytosis - trending down
# New onset Afib.
-Bcx's x 2 neg to date
- CT no megacolon
- Continue fidaxomicin 200mg po bid (d4 of 10).
- Continue short course IV metronidazole (d2)
- Supportive care.
- Follow stool output
- Trend wbc
- Enhanced contact isolation.
# Conditions present on admission
Parkinson's
Hypertension
CAD
Splenectomy due to trauma age 25
HCV from blood transfusion s/p treatment, resolved
Anxiety/depression
Osteoporosis
C. diff x1 2023
Chief Complaint
-: C-diff
Subjective / Review of Systems
She is starting to feel improved. The watery stool now has pieces of stool.
Vital Signs / Physical Exam
Vital Signs
Vital Signs
Temp Pulse Resp BP Pulse Ox
97.6 F 86 16 151/91 96
03/10/25 11:30 03/10/25 11:23 03/10/25 11:00 03/10/25 11:23 03/10/25 11:00
Physical Exam
Constitutional: Comfortable, Chronically Ill and Cachetic
Cardiovascular: Regular Rate and S1/S2
Pulmonary: Clear
Gastrointestinal: Soft, Non Tender and Normal Bowel Sounds
Extremities: Negative Edema
Neurological: AO x 3
Objective Data
Lab Data
Lab Results
03/10/25 07:02
03/10/25 07:02
APTT 77.2 Sec (23.4-35.0) H 03/09/25 06:29
Estimated Creat Clear 56 ml/min 03/10/25 07:02
Lactic Acid 2.1 mmol/L (0.7-2.0) H 03/08/25 12:37
Total Bilirubin 0.5 mg/dl (0.2-1.3) 03/10/25 07:02
AST 45 U/L (14-36) H 03/10/25 07:02
ALT < 10 U/L (0-35) 03/10/25 07:02
Alkaline Phosphatase 88 U/L (38-126) 03/10/25 07:02
Most recent labs reviewed.
Micro Results:
03/07/25 06:23 Salmonella/Shigella Culture - Final
Feces/Stool No Salmonella, Shigella, Aeromonas or Plesiomonas species
isolated.
Campylobacter Culture - Final
No Campylobacter species isolated.
Shiga Toxin Test - Final
No E. coli Shiga Toxin 1 or 2 detected.
03/06/25 21:13 Blood Culture - Preliminary
Blood/Venous No Growth in 72 hours- Final report to follow
03/06/25 18:31 Blood Culture - Preliminary
Blood/Venous No Growth in 72 hours- Final report to follow
03/06/25 22:30 Urine Culture - Final
Urine
03/07/25 06:23 Cryptosporidium/Giardia - Final
Feces/Stool Negative for Cryptosporidium and/or Giardia Lamblia
antigens.
03/07/25 06:23 C. difficile GDH Antigen & Toxins - Final
Feces/Stool Toxigenic C.difficile Positive
03/08/25 CT a/p: Radiographic appearance of the colon, as described, with pancolitis. The appearance of the accordion sign of wall/calcific haustral fold thickening in this cecum and ascending colon is very suggestive for the diagnosis of
pseudomembranous colitis. No evidence of pneumatosis. No perforation. No distention to suggest toxic megacolon.
[2025-03-10] MEDS: SODIUM PHOSPHATE 255 MEQ IV (12:16)
--- NOTE | 2025-03-10 12:23 | CM ---
Addendum entered by Lisa Ellison 03/10/25 14:44:
script on chart for walker to be given by PT at discharge
Original Note:
Patient seen at bedside
[facility] accepted in [facility]
PT rec home health
PLAN: Home with [facility] when stable
to transport
[2025-03-10 15:00] VITALS: BP 137/97
[2025-03-10] MEDS: HALDOL 1 MG IM (15:33)
--- NOTE | 2025-03-10 15:55 | VNURNOTE ---
Confirmed with Crystal at [facility] bed info was rec'ed.
[2025-03-10] MEDS: D5/0.9% SODIUM CHLORIDE IV (16:18)
[2025-03-10 19:00] VITALS: BP 156/93
[2025-03-10] MEDS: D5/0.9% SODIUM CHLORIDE 1000 IV ×2 (20:17→21:18)
[2025-03-10] MEDS: MIRAPEX 0.25 MG PO (21:12)
[2025-03-10] MEDS: MELATONIN 5 MG PO (21:12)
[2025-03-10 23:00] VITALS: BP 151/95
[2025-03-11] MEDS: FLAGYL 750 MG 150 IV ×3 (05:29→21:42)
[2025-03-11] MEDS: SINEMET 25-100 PO (05:30)
[2025-03-11 07:42] VITALS: BP 150/91
[2025-03-11] MEDS: D5/0.9% SODIUM CHLORIDE 1000 IV ×2 (08:05→16:30)
[2025-03-11] MEDS: OSCAL 500 + D 500 MG PO ×3 (08:07→20:13)
[2025-03-11] MEDS: ZEBETA 10 MG PO (08:07)
[2025-03-11] MEDS: NORVASC 2.5 MG PO (08:07)
[2025-03-11] MEDS: ELIQUIS 5 MG PO (08:07)
[2025-03-11] MEDS: PEPCID 20 MG PO (08:07)
[2025-03-11] MEDS: DIFICID 200 MG PO ×2 (08:07→20:13)
--- NOTE | 2025-03-11 08:26 | PTCARENOTE ---
attending notified pt is lethargic responsive to tactile stimuli, abd distended and tender. 150/91 HR 98 96%RA, afebrile. n/o rec'd
--- NOTE | 2025-03-11 08:59 | W.PN.CD ---
Today's Communication / Plan
-
For Echo (I ordered)
I stopped Eliquis, restart in 1-3 weeks as outpatient. I want pancolitis much improved before starting Eliquis
I will add DVT prophylaxis as she will be off Eliquis
Impression / Plan
-
C Diff pancolitis
- care per gi, id and medicine
- I reviewed the relationship of ATB and subsequent C Dif
- Diarrhea improving
- Pt says pain is worse. I updated medicine and GI just now 03/11/2025 at 0858 hrs => I will stop Eliquis in case her course worsens and surgery needed
New Paroxysmal AFib
- Brief AFib with RVR was seen on 03/07/2025
- Rhythm: In sinus since
- Rate: Fine in sinus, BB dose has been increased new onset, duration unknown.
- Anticoagulation: Now on Eliquis 5 BID: age 79, Cr 0.6, note Weight is only 45 kg
- I will stop Eliquis now given her acute pancolitis given her clinical appearance and resume it in 1-3 weeks as an outpatient
- [id number] score is 4 (age, female, HTN)
- Yesterday when she looked better and her (who I care for was present) I reviewed risks of anticoagulation and signs and symptoms of [employer]BER and GI bleeding
HTN, now hypertensive
- Instead of resuming amlodipine will are using ARB that was just started
- Amlodipine does interact with Eliquis mildly
Nonischemic myocardial injury from acute illness and tachyarrhythmia, peak trop 0.067
PVCs, on BB
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
Mitral regurgitation, mild on echo 03/2020.
Subjective:
No CP or palps. Less diarrhea.
Physical Exam
Vital Signs/Labs
Vital Signs
Temp Pulse Resp BP Pulse Ox
97.8 F 98 18 150/91 94
03/11/25 07:42 03/11/25 07:42 03/11/25 07:42 03/11/25 07:42 03/11/25 07:42
03/10/25 07:02
03/10/25 07:02
APTT 77.2 Sec (23.4-35.0) H 03/09/25 06:29
Magnesium 1.8 mg/dl (1.6-2.3) 03/10/25 07:02
TSH 1.27 uIU/ml (0.47-4.68) 03/07/25 03:27
Physical Exam
Constitutional: Distress
Cardiovascular: Rhythm & rate is regular and Pedal edema is absent
Respiratory: Respiratory effort normal and Lungs clear to auscul.
GI: Distention present
Neuro/Psych: Alert
Data Reviewed
-
Date of Service: March 11, 2025
--- NOTE | 2025-03-11 09:03 | W.PN.HOSP.TC ---
Today's Communication/Plan
-
see plan
Assessment / Plan
Assessment / Plan
79-year-old presenting with 1 month of diarrhea, weakness and found to have significant hyponatremia, hypocalcium, leukocytosis and bandemia. She is afebrile here. No diarrhea to find emergency department. She is nontoxic-appearing. Known
history of C. difficile. No recent antibiotic use. Exposure to well water but no order or household members with diarrhea or similar symptoms. She is dehydrated with elevated lactic acid and has had 15 pound weight loss recently.
Gen: NAD, NCAT, appears chronically ill
Eyes: EOMI, PERRLA, no scleral icterus.
Neck: supple.
CV: RRR, +S1/S2, no m/r/g.
Resp: CTAB, no rales, wheezes, or rhonchi.
Abd: +BS, soft, mild distention, mild TTP
Skin: No rashes.
Neuro: CN 2-12 intact, non-focal.
Psych: calm
CT A/P: Pancolitis. The appearance of the accordion sign of wall/calcific haustral fold thickening in this cecum and ascending colon is very suggestive for the diagnosis of pseudomembranous colitis. No evidence of pneumatosis. No perforation. No
distention to suggest toxic megacolon. Generalized haziness of the mesenteric fat and peritoneal fat, consistent with diffuse edema and third spacing. Mild ascites. No focal collection identified suspicious for abscess. Probable mild small bowel
dysmotility/ileus. Small bilateral pleural effusions. There appear to be multiple splenic components, as described. Correlate with clinical history of prior surgery or trauma.
Sepsis due to acute C. difficile colitis:
-Leukocytosis improving, frequency of diarrhea improving
-hypotension has resolved
-Currently afebrile and hemodynamically stable
-cont IVFs
-cont Dificid/flagyl as per ID
-concern at this time is worsening acute metabolic encephalopathy, mild abdominal distention, mild tenderness to palpation. Check CT A/P (hopefully pt can take PO contrast)
New onset afib:
-cont bisoprolol
-Dr. West has stopped Eliquis at this time () with plan to restart in 2 weeks
Other problems:
Hypokalemia, resolved
Hyponatremia, resolved
Hypophosphatemia, replete IV
Essential HTN: cont BB/Norvasc
Elevated troponin is nonischemic myocardial injury due to sepsis
Parkinson disease: cont Sinemet
Hypocalcemia, resolved (corrected Ca normal)
FULL/Lovenox
Anticipated Discharge: 24 - 48 hours
Subjective/Interval History
-
Date of Service: March 11, 2025
Pt confused, states she's trying to wake up. As per RN report patient with 2 loose stools in the last 24 hours.
Objective Data
-
Vital Signs:
Vital Signs
Temp Pulse Resp BP Pulse Ox
97.8 F 98 18 150/91 94
03/11/25 07:42 03/11/25 07:42 03/11/25 07:42 03/11/25 07:42 03/11/25 07:42
I&O
03/10/25 03/11/25 03/12/25
06:59 06:59 06:59
Intake Total 600 / 600 240 / 240
Balance 600 / 600 240 / 240
[2025-03-11 09:42] LABS: Hematocrit 33.9 % (37.0-47.0); Hemoglobin 12.0 g/dL (12.0-16.0); Mean Corp Hgb Conc. 35.4 g/dL (33.0-37.0); Mean Corpuscular Volume 95.0 fL (81.0-99.0); Platelet Count 243 10^3/uL (130-400); Red Cell Dist. Width 13.7 % (11.5-14.5)
[2025-03-11] MEDS: RASAGILINE MESYLATE 1 MG PO (09:57)
[2025-03-11] MEDS: SINEMET 25-100 1 TABLET PO ×4 (09:57→20:13)
[2025-03-11] MEDS: OMNIPAQUE 50 ML PO (09:58)
[2025-03-11 10:14] LABS: Blood Urea Nitrogen 11 mg/dl (7-17); Calcium 7.2 mg/dl (8.4-10.2); Carbon Dioxide 20 mmol/L (22-30); Chloride 108 mmol/L (98-107); Estimated Creatinine Clearance 56 ml/min; Glucose 139 mg/dl (70-99); Potassium 3.3 mmol/L (3.5-5.1); Sodium 133 mmol/L (135-145); eGFR > 60.00
--- NOTE | 2025-03-11 10:52 | W.PN.ID1 ---
Date of Service
Date of Service: March 11, 2025
Today's Communication
Continue current abx's.
Assessment / Plan
# C. difficile colitis (2nd episode 18 months apart)
# Fever resolved
#Leukocytosis - trending down
# New onset Afib.
-Bcx's x 2 neg to date
- CT no megacolon
- Diarrhea improving.
- Continue fidaxomicin 200mg po bid (d5 of 10) through 03/17.
- Continue short course IV metronidazole (d3)
- Supportive care.
- Trend wbc
- Enhanced contact isolation.
- Asked director case management to check if insurance covers fidaxomicin.
# Conditions present on admission
Parkinson's
Hypertension
CAD
Splenectomy due to trauma age 25
HCV from blood transfusion s/p treatment, resolved
Anxiety/depression
Osteoporosis
C. diff x1 2023
Chief Complaint
-: C-diff
Subjective / Review of Systems
at bedside.
Pt denies abd pain. Diarrhea improving.
Trying to drink oral contrast for repeat CT a/p, ordered by hosptialist.
Vital Signs / Physical Exam
Vital Signs
Vital Signs
Temp Pulse Resp BP Pulse Ox
97.8 F 98 18 150/91 94
03/11/25 07:42 03/11/25 07:42 03/11/25 07:42 03/11/25 07:42 03/11/25 07:42
Physical Exam
Constitutional: Chronically Ill and Cachetic
Cardiovascular: Regular Rate and S1/S2
Pulmonary: Clear
Gastrointestinal: Soft, Non Tender and Distended (mild-mod distention )
Extremities: Negative Edema
Neurological: Awake and Other (Drowsy)
Objective Data
Lab Data
Lab Results
03/11/25 09:22
03/11/25 09:22
APTT 77.2 Sec (23.4-35.0) H 03/09/25 06:29
Estimated Creat Clear 56 ml/min 03/11/25 09:22
Lactic Acid 2.1 mmol/L (0.7-2.0) H 03/08/25 12:37
Total Bilirubin 0.5 mg/dl (0.2-1.3) 03/10/25 07:02
AST 45 U/L (14-36) H 03/10/25 07:02
ALT < 10 U/L (0-35) 03/10/25 07:02
Alkaline Phosphatase 88 U/L (38-126) 03/10/25 07:02
Most recent labs reviewed.
Micro Results:
03/06/25 21:13 Blood Culture - Preliminary
Blood/Venous No Growth in 4 days- Final report to follow
03/06/25 18:31 Blood Culture - Preliminary
Blood/Venous No Growth in 4 days- Final report to follow
03/07/25 06:23 Salmonella/Shigella Culture - Final
Feces/Stool No Salmonella, Shigella, Aeromonas or Plesiomonas species
isolated.
Campylobacter Culture - Final
No Campylobacter species isolated.
Shiga Toxin Test - Final
No E. coli Shiga Toxin 1 or 2 detected.
03/06/25 22:30 Urine Culture - Final
Urine
03/07/25 06:23 Cryptosporidium/Giardia - Final
Feces/Stool Negative for Cryptosporidium and/or Giardia Lamblia
antigens.
03/07/25 06:23 C. difficile GDH Antigen & Toxins - Final
Feces/Stool Toxigenic C.difficile Positive
03/08/25 CT a/p: Radiographic appearance of the colon, as described, with pancolitis. The appearance of the accordion sign of wall/calcific haustral fold thickening in this cecum and ascending colon is very suggestive for the diagnosis of
pseudomembranous colitis. No evidence of pneumatosis. No perforation. No distention to suggest toxic megacolon.
--- NOTE | 2025-03-11 12:03 | W.PN.GI.CBS2 ---
Addendum entered and electronically signed by Susan Blank MD 03/11/25 20:30:
I saw and examined the patient.
The MINE SURVEYOR or PA's note was reviewed and I agree with the note.
Comment: GI was reconsulted for lethargy and abdominal discomfort.
At this time patient is denying any abdominal discomfort. No fevers or leukocytosis.
Was given Haldol and melatonin which could be contributing to the lethargy , hold off on these and monitor.
-Lethargy without any evidence of significant diarrhea or GI symptoms.
If continued lethargy in spite of holding Haldol, consider CT head if hospitalist team deems necessary.
-C. difficile diarrhea
Currently on Fidaxomycin and Flagyl per ID
On low residue diet
No diarrhea episodes at this time
No further GI evaluation at this time unless active GI symptoms.
Original Note:
Today's Communication / Plan
-
await results of CT
Assessment / Plan
-
79-year-old female past medical history of hypertension, Parkinson's disease, hepatitis C (treated and eradicated as per patient), anxiety, depression, history of C. difficile
CT abd/pel 03/08
IMPRESSION:
Radiographic appearance of the colon, as described, with pancolitis. The appearance of the accordion sign of wall/calcific haustral fold thickening in this cecum and ascending colon is very suggestive for the diagnosis of pseudomembranous colitis.
No evidence of pneumatosis. No perforation. No distention to suggest toxic megacolon.
Generalized haziness of the mesenteric fat and peritoneal fat, consistent with diffuse edema and third spacing. Mild ascites. No focal collection identified suspicious for abscess.
Probable mild small bowel dysmotility/ileus.
Small bilateral pleural effusions.
Impression:
C Diff Colitis (2nd episode) last one 18 ms ago. Recent Abx by PCP
Leukocytosis-> improving
Afib, new onset
Parkinsons
Splenectomy secondary to trauma
Lethargy-> Patient given Haldol and Melatonin yesterday, ? cause
Plan:
-Med Attending ordered repeat CT Abd Pelvis with oral and IV contrast, will await results.
-Continue Abx per ID
-Patient not eating much but on low residue diet
-Trend labs
-Cardiology holding AC at this time. Discussed with Dr. West. Plans on restarting as outpatient.
Subjective
Subjective
Date of Service: March 11, 2025
Asked to see patient again for lethargy and continued abdominal discomfort, same as yesterday. Patient afebrile, WBC trending down, she is still slightly distended. Patient with improvement of BMs, went from loose and watery to smear. Continues on
Fidaxomycin and Flagyl per ID. Patient did receive Haldol and Melatonin yesterday. She has no pain with abd palpation and no rebound.
Objective
Data Reviewed
Laboratory Data:
Laboratory Results
03/11/25 09:22
03/11/25 09:22
Laboratory Results
APTT 77.2 Sec (23.4-35.0) H 03/09/25 06:29
Phosphorus 1.5 mg/dl (2.5-4.5) L 03/10/25 07:02
Magnesium 1.8 mg/dl (1.6-2.3) 03/10/25 07:02
Total Bilirubin 0.5 mg/dl (0.2-1.3) 03/10/25 07:02
AST 45 U/L (14-36) H 03/10/25 07:02
ALT < 10 U/L (0-35) 03/10/25 07:02
Alkaline Phosphatase 88 U/L (38-126) 03/10/25 07:02
Lipase 33 U/L (23-300) 03/06/25 17:19
Vital Signs and I&O:
Vital Signs
Temp Pulse Resp BP Pulse Ox
97.8 F 98 18 150/91 94
03/11/25 07:42 03/11/25 07:42 03/11/25 07:42 03/11/25 07:42 03/11/25 07:42
I&O
03/10/25 03/11/25 03/12/25
06:59 06:59 06:59
Intake Total 600 / 600 240 / 240
Balance 600 / 600 240 / 240
Physical Exam
Physical Exam
HEENT: Anicteric
Cardiology: Normal Sinus Rhythm
Pulmonary: Clear (anterior)
GI: Soft, Distended (mildly distended) and Non Tender (no rebound)
Extremities: No Edema
Neuro: Non Focal (patient is sleepy, able to hold conversation, follow commands and move all extremities. )
--- NOTE | 2025-03-11 12:45 | CM ---
Patient seen at bedside with . Physician requested cost of Dificid 200mg bid and per [facility] cost 701.68$. CM Checked [facility] and cost ranged from 2000.00- 4000.00. CM updated physician via tt and will update patient re cost.
[2025-03-11] MEDS: KCL ELIXIR 40 MEQ PO (14:53)
[2025-03-11 15:36] VITALS: BP 161/94
[2025-03-11] MEDS: LOVENOX 30 MG SC (17:14)
[2025-03-11] MEDS: MIRAPEX 0.25 MG PO (20:13)
[2025-03-11] MEDS: MELATONIN 5 MG PO (20:13)
[2025-03-11 23:42] VITALS: BP 133/81
[2025-03-12] MEDS: SINEMET 25-100 1 TABLET PO ×5 (05:30→21:07)
[2025-03-12] MEDS: FLAGYL 750 MG 150 IV (05:30)
[2025-03-12 06:58] LABS: Hematocrit 36.7 % (37.0-47.0); Hemoglobin 13.0 g/dL (12.0-16.0); Mean Corp Hgb Conc. 35.4 g/dL (33.0-37.0); Mean Corpuscular Volume 93.1 fL (81.0-99.0); Platelet Count 295 10^3/uL (130-400); Red Cell Dist. Width 13.3 % (11.5-14.5)
[2025-03-12 07:04] LABS: Blood Urea Nitrogen 15 mg/dl (7-17); Calcium 7.2 mg/dl (8.4-10.2); Carbon Dioxide 22 mmol/L (22-30); Chloride 109 mmol/L (98-107); Estimated Creatinine Clearance 56 ml/min; Glucose 116 mg/dl (70-99); Potassium 3.7 mmol/L (3.5-5.1); Sodium 134 mmol/L (135-145); eGFR > 60.00
[2025-03-12 07:29] VITALS: BP 160/90
--- NOTE | 2025-03-12 08:30 | W.PN.HOSP.TC ---
Today's Communication/Plan
-
see plan
Assessment / Plan
Assessment / Plan
79-year-old presenting with 1 month of diarrhea, weakness and found to have significant hyponatremia, hypocalcium, leukocytosis and bandemia. She is afebrile here. No diarrhea to find emergency department. She is nontoxic-appearing. Known
history of C. difficile. No recent antibiotic use. Exposure to well water but no order or household members with diarrhea or similar symptoms. She is dehydrated with elevated lactic acid and has had 15 pound weight loss recently.
Gen: NAD, awake and alert, NCAT, appears chronically ill
Eyes: EOMI, PERRLA, no scleral icterus.
Neck: supple.
CV: RRR, +S1/S2, no m/r/g.
Resp: CTAB, no rales, wheezes, or rhonchi.
Abd: +BS, soft, mild distention, nontender
Skin: No rashes.
Neuro: CN 2-12 intact, non-focal.
Psych: Normal mood and affect
CT A/P 03/08: Pancolitis. The appearance of the accordion sign of wall/calcific haustral fold thickening in this cecum and ascending colon is very suggestive for the diagnosis of pseudomembranous colitis. No evidence of pneumatosis. No perforation.
No distention to suggest toxic megacolon. Generalized haziness of the mesenteric fat and peritoneal fat, consistent with diffuse edema and third spacing. Mild ascites. No focal collection identified suspicious for abscess. Probable mild small bowel
dysmotility/ileus. Small bilateral pleural effusions. There appear to be multiple splenic components, as described. Correlate with clinical history of prior surgery or trauma.
CT A/P 03/11: Diffuse wall thickening of the colon redemonstrated. Marked haustral thickening in the right colon and proximal transverse colon again noted. Findings without significant change, and consistent with pseudomembranous colitis.
Redemonstration of pleural effusions. These have progressed. These are accompanied by compressive partial atelectasis in the lower lobes. Redemonstration of ascites, anasarca, and diffuse mesenteric edema. The ascites is slightly worse than
previously.
Sepsis due to acute C. difficile colitis:
-with acute metabolic encephalopathy
-Leukocytosis overall has improved, frequency of diarrhea improving
-hypotension has resolved, remains afebrile
-imaging above
-was on IVFs, now off considering CT A/P 03/11 findings of volume overload (pleural effusions, ascites, anasarca, diffuse mesenteric edema). Will allow pt to autodiurese. Strict I/Os, daily wts.
-cont Dificid/flagyl as per ID
New onset afib:
-cont bisoprolol
-Dr. West has stopped Eliquis at this time () with plan to restart in 2 weeks
Other problems:
Hypokalemia, resolved
Hyponatremia, resolved
Hypophosphatemia, resolved
Essential HTN: cont BB/Norvasc
Elevated troponin is nonischemic myocardial injury due to sepsis
Parkinson disease: cont Sinemet
Hypocalcemia, resolved (corrected Ca normal)
FULL/Lovenox
Anticipated Discharge: 24 - 48 hours
Subjective/Interval History
-
Date of Service: March 12, 2025
Denies abdominal pain. Reports she has diarrhea whenever she takes medications.
Objective Data
-
Labs:
Laboratory Results
03/12/25
05:58
WBC 14.6 H
Hgb 13.0
Hct 36.7 L
Plt Count 295 D
Sodium 134 L
Potassium 3.7
Chloride 109 H
Carbon Dioxide 22
BUN 15
Creatinine 0.6
Glucose 116 H
Calcium 7.2 L
Vital Signs:
Vital Signs
Temp Pulse Resp BP Pulse Ox
97.2 F 102 16 160/90 95
03/12/25 07:29 03/12/25 07:29 03/12/25 07:29 03/12/25 07:29 03/12/25 07:29
I&O
03/11/25 03/12/25 03/13/25
06:59 06:59 06:59
Intake Total 240 / 240 720 / 720
Balance 240 / 240 720 / 720
[2025-03-12] MEDS: OSCAL 500 + D 500 MG PO ×3 (08:50→21:07)
[2025-03-12] MEDS: PEPCID 20 MG PO (08:50)
[2025-03-12] MEDS: ZEBETA 10 MG PO (08:50)
[2025-03-12] MEDS: RASAGILINE MESYLATE 1 MG PO (08:51)
[2025-03-12] MEDS: DIFICID 200 MG PO ×2 (08:51→21:07)
[2025-03-12] MEDS: NORVASC 5 MG PO (08:54)
[2025-03-12] MEDS: NORVASC PO (09:21)
--- NOTE | 2025-03-12 09:39 | W.PN.GI.CBS2 ---
Addendum entered and electronically signed by Susan Blank MD 03/12/25 18:35:
I saw and examined the patient.
The COLLECTION ADVISOR or PA's note was reviewed and I agree with the note.
Comment: Patient denies any significant abdominal discomfort but brown liquid stool
Leukocytosis without fever. Currently on low residue diet, mental status definitely improved compared to yesterday
Reviewed CT scan of the abdomen and pelvis 03/11-diffuse colonic wall thickening likely related to pseudomembranous colitis from C. difficile, also noted is some ascites and anasarca and diffuse mesenteric edema likely related to pseudomembrane
colitis, pleural effusions noted as well.
Serum albumin 2.8
Noted Kandicequis was DC'd by cardiology, currently no evidence of active bleeding from colitis.
Currently on fidaxomicin as per ID for C. difficile, would continue that.
No further GI workup at this time, will sign off, please call back if needed.
Original Note:
Today's Communication / Plan
-
Pt feeling slightly better per family - more awake and eating small amounts
less bloating and denies pain but some groin pain
repeat CT 03/11 as noted
small amount oral intake-- cont to monitor-- per family poor eater prior to admission
if appetite remains poor assess need for drainage of pleural effusion
cont dificid
supportive care
monitor WBC's slight increase from yesterday
Trend labs
Cardiology holding AC at this time.. Plans on restarting as outpatient.
updated family at bedside
Assessment / Plan
-
79-year-old female past medical history of hypertension, Parkinson's disease, hepatitis C (treated and eradicated as per patient), anxiety, depression, history of C. difficile , history of splenectomy presents with weakness inability to walk, 15
pound weight loss unintentional decreased oral intake and diarrhea. Asked to evaluate for C. difficile colitis and sepsis. Patient with history of diarrhea since end of December. Apparently as an outpatient this was negative for C. difficile.
Treated with 3 different antibiotics first 1 unknown, second 1 was amoxicillin and third was Cipro. Now with c-diff . Ct with pseudomembranous colitis, pleural effusion
CT abd/pel 03/08
IMPRESSION:
Radiographic appearance of the colon, as described, with pancolitis. The appearance of the accordion sign of wall/calcific haustral fold thickening in this cecum and ascending colon is very suggestive for the diagnosis of pseudomembranous colitis.
No evidence of pneumatosis. No perforation. No distention to suggest toxic megacolon.
Generalized haziness of the mesenteric fat and peritoneal fat, consistent with diffuse edema and third spacing. Mild ascites. No focal collection identified suspicious for abscess.
Probable mild small bowel dysmotility/ileus.
Small bilateral pleural effusions.
CT oral only 03/11
IMPRESSION:
Diffuse wall thickening of the colon remonstrated. Marked haustral thickening in the right colon and proximal transverse colon again noted. Findings without significant change, and consistent with pseudomembranous colitis.
Remonstration of pleural effusions. These have progressed. These are accompanied by compressive partial atelectasis in the lower lobes.
Remonstration of ascites, anasarca, and diffuse mesenteric edema. The ascites is slightly worse than previously.
Impression:
C Diff Colitis (2nd episode) last one 18 ms ago Pt did have vanco and Vowst with prior treatment . Recent Abx by PCP
Leukocytosis-> improving
-CT with pancolitis, pseudomembranous colitis
Afib, new onset
pleural effusion
Parkinsons
Splenectomy secondary to trauma
Lethargy-> Patient given Haldol and Melatonin yesterday, ? cause
Plan:
Pt feeling slightly better per family - more awake and eating small amounts
less bloating and denies pain but some groin pain
repeat CT 03/11 as noted
small amount oral intake-- cont to monitor-- per family poor eater prior to admission
if appetite remains poor assess need for drainage of pleural effusion
cont dificid
supportive care
monitor WBC's slight increase from yesterday
Trend labs
Cardiology holding AC at this time.. Plans on restarting as outpatient.
updated family at bedside
i
Subjective
Subjective
Date of Service: March 12, 2025
03/11 brown liquid stool on low residue diet
Objective
Data Reviewed
Laboratory Data:
Laboratory Results
03/12/25 05:58
03/12/25 05:58
Laboratory Results
APTT 77.2 Sec (23.4-35.0) H 03/09/25 06:29
Phosphorus 1.5 mg/dl (2.5-4.5) L 03/10/25 07:02
Magnesium 1.8 mg/dl (1.6-2.3) 03/10/25 07:02
Total Bilirubin 0.5 mg/dl (0.2-1.3) 03/10/25 07:02
AST 45 U/L (14-36) H 03/10/25 07:02
ALT < 10 U/L (0-35) 03/10/25 07:02
Alkaline Phosphatase 88 U/L (38-126) 03/10/25 07:02
Lipase 33 U/L (23-300) 03/06/25 17:19
Vital Signs and I&O:
Vital Signs
Temp Pulse Resp BP Pulse Ox
97.2 F 102 16 160/90 95
03/12/25 07:29 03/12/25 08:54 03/12/25 07:29 03/12/25 08:54 03/12/25 07:29
I&O
03/11/25 03/12/25 03/13/25
06:59 06:59 06:59
Intake Total 240 / 240 720 / 720
Balance 240 / 240 720 / 720
Physical Exam
Physical Exam
HEENT: Anicteric and Moist mucous membranes
Cardiology: Other (tachy )
Pulmonary: Clear
GI: Soft, Distended and Non Tender
Extremities: No Edema
Neuro: Non Focal (awake and alert )
--- NOTE | 2025-03-12 10:18 | VNURNOTE ---
Addendum entered by Adela Costa RN 03/12/25 14:18:
Confirmed with [facility] rep Reinaldo that hosp bed was delivered to pt's house.
Original Note:
Follow up on hosp bed. Per DME co, they attempted to deliver bed yesterday and spouse declined. This author called spouse Chance. Reinforced that hosp bed needs to be delivered prior to pt going home. Spouse was unclear on that. He verbalized
understanding and agreed to accept hosp bed for delivery today. Reinaldo at [facility] updated.
Plan: Hosp bed delivery today, RW from PT (rx on chart)
PM-VN
--- NOTE | 2025-03-12 11:06 | W.PN.CD ---
Today's Communication / Plan
-
- Eliquis stopped for now given her acute pancolitis/clinical appearance; plan is to resume it in 1-3 weeks as an outpatient.
- Will increase amlodipine to 5 mg daily.
- No further cardiac recommendations at this time; outpatient follow-up with Cardiology.
Impression / Plan
-
C Diff pancolitis
- Management as per primary team.
New Paroxysmal AFib
- Brief AFib with RVR was seen on 03/07/2025
- Rhythm: In sinus since
- Rate: Fine in sinus, BB dose has been increased new onset, duration unknown.
- Anticoagulation: Now on Eliquis 5 BID: age 79, Cr 0.6, note Weight is only 45 kg
- Eliquis stopped for now given her acute pancolitis/clinical appearance; plan is to resume it in 1-3 weeks as an outpatient.
- [id number] score is 4 (age, female, HTN)
HTN
- Blood pressure remains mildly elevated
- Will increase amlodipine to 5 mg daily.
Nonischemic myocardial injury from acute illness and tachyarrhythmia, peak trop 0.067
PVCs, on BB
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
Mitral regurgitation, mild on echo 03/2020.
Subjective:
No cardiac complaints this a.m.
Physical Exam
Vital Signs/Labs
Vital Signs
Temp Pulse Resp BP Pulse Ox
97.2 F 102 16 160/90 95
03/12/25 07:29 03/12/25 08:54 03/12/25 07:29 03/12/25 08:54 03/12/25 07:29
03/12/25 05:58
03/12/25 05:58
APTT 77.2 Sec (23.4-35.0) H 03/09/25 06:29
Magnesium 1.8 mg/dl (1.6-2.3) 03/10/25 07:02
TSH 1.27 uIU/ml (0.47-4.68) 03/07/25 03:27
Physical Exam
Constitutional: No acute distress
EENT: Anicteric
Cardiovascular: Rhythm & rate is regular, Pedal edema is absent, Systolic murmur present (2/6) and S1S2 is normal
Respiratory: Respiratory effort normal and Lungs clear to auscul.
GI: Soft
Neuro/Psych: Alert
Other: Skin (Warm, dry)
Data Reviewed
-
Date of Service: March 12, 2025
Echo: Report Reviewed by me (03/11/2025: EF 70-75%; aortic sclerosis; mild to moderate TR, PASP 30 mmHg.)
Medical Tests (PFT, Pathology etc): Discussed with Nurse
Labs: Labs Reviewed by me
--- NOTE | 2025-03-12 11:47 | W.PN.ID1 ---
Date of Service
Date of Service: March 12, 2025
Today's Communication
DC metronidazole. Continue fidaxomicin.
Assessment / Plan
# C. difficile colitis (2nd episode 18 months apart)
# Fever resolved
#Leukocytosis - overall trending down
# New onset Afib.
-Bcx's x 2 neg
- CT x2 no megacolon; + pseudomembranous colitis
- Diarrhea improving.
- Continue fidaxomicin 200mg po bid (d6 of 10) through 03/17.
( Per manager case management fidaxomicin (12 doses) will cost $701.68 to patient.)
- DC short course IV metronidazole (d4)
- Trend wbc
# Conditions present on admission
Parkinson's
Hypertension
CAD
Splenectomy due to trauma age 25
HCV from blood transfusion s/p treatment, resolved
Anxiety/depression
Osteoporosis
C. diff x1 2023
Chief Complaint
-: C-diff
Subjective / Review of Systems
Wants to go home soon. Diarrhea decreased frequency.
Vital Signs / Physical Exam
Vital Signs
Vital Signs
Temp Pulse Resp BP Pulse Ox
97.2 F 102 16 160/90 95
03/12/25 07:29 03/12/25 08:54 03/12/25 07:29 03/12/25 08:54 03/12/25 07:29
Physical Exam
Constitutional: Chronically Ill
Cardiovascular: Regular Rate and S1/S2
Pulmonary: Clear
Gastrointestinal: Soft, Non Tender and Distended (mild distention )
Extremities: Negative Edema
Neurological: Awake and Alert
Objective Data
Lab Data
Lab Results
03/12/25 05:58
03/12/25 05:58
APTT 77.2 Sec (23.4-35.0) H 03/09/25 06:29
Estimated Creat Clear 56 ml/min 03/12/25 05:58
Lactic Acid 2.1 mmol/L (0.7-2.0) H 03/08/25 12:37
Total Bilirubin 0.5 mg/dl (0.2-1.3) 03/10/25 07:02
AST 45 U/L (14-36) H 03/10/25 07:02
ALT < 10 U/L (0-35) 03/10/25 07:02
Alkaline Phosphatase 88 U/L (38-126) 03/10/25 07:02
Most recent labs reviewed.
Micro Results:
03/06/25 21:13 Blood Culture - Final
Blood/Venous No Growth - Final Report
03/06/25 18:31 Blood Culture - Final
Blood/Venous No Growth - Final Report
03/07/25 06:23 Salmonella/Shigella Culture - Final
Feces/Stool No Salmonella, Shigella, Aeromonas or Plesiomonas species
isolated.
Campylobacter Culture - Final
No Campylobacter species isolated.
Shiga Toxin Test - Final
No E. coli Shiga Toxin 1 or 2 detected.
03/06/25 22:30 Urine Culture - Final
Urine
03/07/25 06:23 Cryptosporidium/Giardia - Final
Feces/Stool Negative for Cryptosporidium and/or Giardia Lamblia
antigens.
03/07/25 06:23 C. difficile GDH Antigen & Toxins - Final
Feces/Stool Toxigenic C.difficile Positive
03/08/25 CT a/p: Radiographic appearance of the colon, as described, with pancolitis. The appearance of the accordion sign of wall/calcific haustral fold thickening in this cecum and ascending colon is very suggestive for the diagnosis of
pseudomembranous colitis. No evidence of pneumatosis. No perforation. No distention to suggest toxic megacolon.
[2025-03-12 15:36] VITALS: BP 175/95
--- NOTE | 2025-03-12 15:38 | CM ---
Patient seen at bedside with
per [facility] bed was delivered to the home
cg information given to
PLAN: home with [facility] when stable
will transport
[2025-03-12 15:48] VITALS: BP 175/95
[2025-03-12] MEDS: LOVENOX 30 MG SC (17:14)
[2025-03-12] MEDS: MELATONIN 5 MG PO (21:07)
[2025-03-12] MEDS: MIRAPEX 0.25 MG PO (21:07)
[2025-03-12 23:03] VITALS: BP 135/78
[2025-03-13] MEDS: TYLENOL 650 MG PO (04:03)
[2025-03-13] MEDS: SINEMET 25-100 1 TABLET PO ×5 (06:19→21:00)
[2025-03-13 07:11] LABS: Blood Urea Nitrogen 26 mg/dl (7-17); Calcium 7.5 mg/dl (8.4-10.2); Carbon Dioxide 23 mmol/L (22-30); Chloride 106 mmol/L (98-107); Estimated Creatinine Clearance 48 ml/min; Glucose 122 mg/dl (70-99); Potassium 3.9 mmol/L (3.5-5.1); Sodium 135 mmol/L (135-145); eGFR > 60.00
[2025-03-13 07:13] LABS: Hematocrit 39.4 % (37.0-47.0); Hemoglobin 14.1 g/dL (12.0-16.0); Mean Corp Hgb Conc. 35.8 g/dL (33.0-37.0); Mean Corpuscular Volume 95.2 fL (81.0-99.0); Platelet Count 366 10^3/uL (130-400); Red Cell Dist. Width 13.3 % (11.5-14.5)
[2025-03-13 07:59] VITALS: BP 157/104
--- NOTE | 2025-03-13 08:26 | W.PN.HOSP.TC ---
Today's Communication/Plan
-
see plan
Assessment / Plan
Assessment / Plan
79-year-old presenting with 1 month of diarrhea, weakness and found to have significant hyponatremia, hypocalcium, leukocytosis and bandemia. She is afebrile here. No diarrhea to find emergency department. She is nontoxic-appearing. Known
history of C. difficile. No recent antibiotic use. Exposure to well water but no order or household members with diarrhea or similar symptoms. She is dehydrated with elevated lactic acid and has had 15 pound weight loss recently.
Gen: NAD, awake and alert, NCAT, appears chronically ill
Eyes: EOMI, PERRLA, no scleral icterus.
Neck: supple.
CV: remains RRR, +S1/S2, no m/r/g.
Resp: remains CTAB, no rales, wheezes, or rhonchi.
Abd: +BS, soft, minimal distention, nontender
Skin: No rashes.
Neuro: CN 2-12 intact, non-focal.
Psych: Normal mood and affect
CT A/P 03/08: Pancolitis. The appearance of the accordion sign of wall/calcific haustral fold thickening in this cecum and ascending colon is very suggestive for the diagnosis of pseudomembranous colitis. No evidence of pneumatosis. No perforation.
No distention to suggest toxic megacolon. Generalized haziness of the mesenteric fat and peritoneal fat, consistent with diffuse edema and third spacing. Mild ascites. No focal collection identified suspicious for abscess. Probable mild small bowel
dysmotility/ileus. Small bilateral pleural effusions. There appear to be multiple splenic components, as described. Correlate with clinical history of prior surgery or trauma.
CT A/P 03/11: Diffuse wall thickening of the colon redemonstrated. Marked haustral thickening in the right colon and proximal transverse colon again noted. Findings without significant change, and consistent with pseudomembranous colitis.
Redemonstration of pleural effusions. These have progressed. These are accompanied by compressive partial atelectasis in the lower lobes. Redemonstration of ascites, anasarca, and diffuse mesenteric edema. The ascites is slightly worse than
previously.
Sepsis due to acute C. difficile colitis:
-with acute metabolic encephalopathy
-Leukocytosis persists, frequency of diarrhea improving
-hypotension has resolved, remains afebrile
-imaging above
-was on IVFs, now off considering CT A/P 03/11 findings of volume overload (pleural effusions, ascites, anasarca, diffuse mesenteric edema). Will allow pt to autodiurese. Strict I/Os, daily wts.
-cont Dificid/flagyl as per ID
New onset afib:
-cont bisoprolol
-Dr. West has stopped Eliquis at this time (03/10AM) with plan to restart in 2 weeks
Other problems:
Hypokalemia, resolved
Hyponatremia, resolved
Hypophosphatemia, resolved
Essential HTN: cont BB/Norvasc
Elevated troponin is nonischemic myocardial injury due to sepsis
Parkinson disease: cont Sinemet
Hypocalcemia, resolved (corrected Ca normal)
Pt's updated at bedside. Case discussed with ID.
FULL/Lovenox
Anticipated Discharge: 24 - 48 hours
Subjective/Interval History
-
Date of Service: March 13, 2025
Pt states diarrhea is improving. Denies abd pain.
Objective Data
-
Labs:
Laboratory Results
03/13/25
06:17
WBC 17.4 H
Hgb 14.1
Hct 39.4
Plt Count 366 D
Sodium 135
Potassium 3.9
Chloride 106
Carbon Dioxide 23
BUN 26 H
Creatinine 0.7
Glucose 122 H
Calcium 7.5 L
Vital Signs:
Vital Signs
Temp Pulse Resp BP Pulse Ox
97.9 F 97 17 157/104 97
03/13/25 07:59 03/13/25 07:59 03/13/25 07:59 03/13/25 07:59 03/13/25 07:59
I&O
03/12/25 03/13/25 03/14/25
06:59 06:59 06:59
Intake Total 720 / 720 600 / 600
Balance 720 / 720 600 / 600
[2025-03-13 08:32] VITALS: BMI 21.2
[2025-03-13] MEDS: RASAGILINE MESYLATE 1 MG PO (09:11)
[2025-03-13] MEDS: NORVASC 5 MG PO (09:11)
[2025-03-13] MEDS: OSCAL 500 + D 500 MG PO ×3 (09:11→21:00)
[2025-03-13] MEDS: PEPCID 20 MG PO (09:11)
[2025-03-13] MEDS: ZEBETA 10 MG PO (09:11)
[2025-03-13] MEDS: DIFICID 200 MG PO ×2 (09:11→20:50)
--- NOTE | 2025-03-13 10:36 | CM ---
Addendum entered by Lisa Ellison 03/13/25 11:23:
/pt requested referrals to [facility], [facility], [facility] - Entered in [facility]
Original Note:
Patient seen at bedside with
PT rec SNF
[email or web address].gov information given to , agreeable to SNF
will enter referrals once he reviews
no preauth
Patient states will seed cone picker Dificid at [facility] pharmacy and bring to facility (see CM note from 03/11 cost)
PLAN: SNF, pending bed availabilitiy, when stable
--- NOTE | 2025-03-13 13:46 | W.PN.ID1 ---
Date of Service
Date of Service: March 13, 2025
Today's Communication
See below.
Assessment / Plan
# C. difficile colitis (2nd episode 18 months apart)
# Fever resolved
#Leukocytosis - trended up
# New onset Afib.
-Bcx's x 2 neg
- CT x2 no megacolon; + pseudomembranous colitis
- Diarrhea improving. Pt clinically improving.
-s/p 4d metronidazole IV
- Pt very deconditioned - will benefit from rehab; she is agreeable.
- For SNF rehab placement. Spoke to case management assistant.
- Trend wbc
- Continue fidaxomicin 200mg po bid x10 days through 03/17.
- SNF does not carry fidaxomicin due to cost.
is willing to fill and pay for remaining fidaxomicin cost ($465) and bring med to SNF for patient to complete.
I eRx'd script via [facility] for Fidaxomicin 200mg po bid x 4 days, no refill, to [facility]. When in stock, will bead picker med.
# Conditions present on admission
Parkinson's
Hypertension
CAD
Splenectomy due to trauma age 25
HCV from blood transfusion s/p treatment, resolved
Anxiety/depression
Osteoporosis
C. diff x1 2023
Chief Complaint
-: C-diff
Subjective / Review of Systems
at bedside.
She reports diarrhea continues to improve with more formed stool, less frequent.
Vital Signs / Physical Exam
Vital Signs
Vital Signs
Temp Pulse Resp BP Pulse Ox
97.9 F 97 17 157/104 97
03/13/25 07:59 03/13/25 07:59 03/13/25 07:59 03/13/25 07:59 03/13/25 07:59
Physical Exam
Constitutional: Chronically Ill and Cachetic
Cardiovascular: Regular Rate and S1/S2
Pulmonary: Clear
Gastrointestinal: Soft, Non Tender and Distended (mild chronic)
Genito-Urinary: Negative CVA Tenderness
Extremities: Negative Edema
Neurological: Awake and Alert
Objective Data
Lab Data
Lab Results
03/13/25 06:17
03/13/25 06:17
APTT 77.2 Sec (23.4-35.0) H 03/09/25 06:29
Estimated Creat Clear 48 ml/min 03/13/25 06:17
Lactic Acid 2.1 mmol/L (0.7-2.0) H 03/08/25 12:37
Total Bilirubin 0.5 mg/dl (0.2-1.3) 03/10/25 07:02
AST 45 U/L (14-36) H 03/10/25 07:02
ALT < 10 U/L (0-35) 03/10/25 07:02
Alkaline Phosphatase 88 U/L (38-126) 03/10/25 07:02
Most recent labs reviewed.
Micro Results:
03/06/25 21:13 Blood Culture - Final
Blood/Venous No Growth - Final Report
03/06/25 18:31 Blood Culture - Final
Blood/Venous No Growth - Final Report
03/07/25 06:23 Salmonella/Shigella Culture - Final
Feces/Stool No Salmonella, Shigella, Aeromonas or Plesiomonas species
isolated.
Campylobacter Culture - Final
No Campylobacter species isolated.
Shiga Toxin Test - Final
No E. coli Shiga Toxin 1 or 2 detected.
03/06/25 22:30 Urine Culture - Final
Urine
03/07/25 06:23 Cryptosporidium/Giardia - Final
Feces/Stool Negative for Cryptosporidium and/or Giardia Lamblia
antigens.
03/07/25 06:23 C. difficile GDH Antigen & Toxins - Final
Feces/Stool Toxigenic C.difficile Positive
03/08/25 CT a/p: Radiographic appearance of the colon, as described, with pancolitis. The appearance of the accordion sign of wall/calcific haustral fold thickening in this cecum and ascending colon is very suggestive for the diagnosis of
pseudomembranous colitis. No evidence of pneumatosis. No perforation. No distention to suggest toxic megacolon.
Care Review
Plan reviewed with: Physician (Dr. Back) and Other (advertising traffic manager.)
[2025-03-13 14:49] VITALS: BMI 21.2
[2025-03-13 15:07] VITALS: BP 125/73
[2025-03-13] MEDS: LOVENOX 30 MG SC (18:21)
[2025-03-13] MEDS: MELATONIN 5 MG PO (21:00)
[2025-03-13] MEDS: MIRAPEX 0.25 MG PO (21:00)
[2025-03-13 23:00] VITALS: BP 136/82
[2025-03-14 00:13] VITALS: BP 136/82
[2025-03-14 03:00] VITALS: BP 141/91
--- NOTE | 2025-03-14 03:20 | PTCARENOTE ---
Was headed into another room when pts bed alarm started going off. Pt found on the floor in the corner of the room near the window. Pt was helped back to the bed with numerous staff members. It was noted that she had stool all over her. Pt assessed,
Pt stated that she hit her head but cannot remember a change in LOC. Pt has new skin tear/abrasion on right scapula. There is no bleeding or bruising on head. Vitals obtained were BP- 141/91, pulse- 95, O2- 95, temp 98.4, RR-20. SELF PAY REPRESENTATIVE notified and
assessed pt. Pt cleaned up, left with bed alarm working in place. Pt educated stone fabricator alcantara use, no signs or symptoms of distress assessed. Plan of care ongoing.
--- NOTE | 2025-03-14 03:53 | W.PN.UPDATE ---
Update Note
Progress Note Update
0300 RN reporting fall
Per RN bed alarm was going off and by the time she walked in pt was on the other side of the bed against wall and slid down. Pt states she 'bumped' her head. Small abrasion to left scapula.
PT had lovenox at 1800.
Will check CT head
vitals stable
[2025-03-14] MEDS: SINEMET 25-100 1 TABLET PO ×3 (05:49→14:11)
[2025-03-14 06:56] LABS: Hematocrit 34.5 % (37.0-47.0); Hemoglobin 12.2 g/dL (12.0-16.0); Mean Corp Hgb Conc. 35.4 g/dL (33.0-37.0); Mean Corpuscular Volume 95.0 fL (81.0-99.0); Platelet Count 349 10^3/uL (130-400); Red Cell Dist. Width 13.5 % (11.5-14.5)
[2025-03-14 07:12] LABS: Blood Urea Nitrogen 41 mg/dl (7-17); Calcium 7.6 mg/dl (8.4-10.2); Carbon Dioxide 24 mmol/L (22-30); Chloride 108 mmol/L (98-107); Estimated Creatinine Clearance 42 ml/min; Glucose 124 mg/dl (70-99); Potassium 3.7 mmol/L (3.5-5.1); Sodium 137 mmol/L (135-145); eGFR > 60.00
[2025-03-14 07:35] VITALS: BP 117/77
[2025-03-14 07:57] VITALS: BMI 20.7
[2025-03-14] MEDS: ZEBETA 10 MG PO (08:20)
[2025-03-14] MEDS: PEPCID 20 MG PO (08:21)
[2025-03-14] MEDS: OSCAL 500 + D 500 MG PO (08:21)
[2025-03-14] MEDS: NORVASC 5 MG PO (08:21)
[2025-03-14] MEDS: DIFICID 200 MG PO (08:21)
[2025-03-14] MEDS: RASAGILINE MESYLATE 1 MG PO (08:21)
[2025-03-14] MEDS: TYLENOL 650 MG PO (08:31)
--- NOTE | 2025-03-14 08:55 | W.PN.HOSP.TC ---
Addendum entered and electronically signed by Dashawn Back MD 03/14/25 13:18:
Total time spent on d/c = 36 min. This included today's physical exam, progress note, review of laboratory and diagnostic data, preparation of discharge documents and prescriptions, and discussions about the pt's hospital course and discharge plan
with the patient and other durable medical equipment technician involved in the patient's care.
Original Note:
Today's Communication/Plan
-
see plan
Assessment / Plan
Assessment / Plan
79-year-old presenting with 1 month of diarrhea, weakness and found to have significant hyponatremia, hypocalcium, leukocytosis and bandemia. She is afebrile here. No diarrhea to find emergency department. She is nontoxic-appearing. Known
history of C. difficile. No recent antibiotic use. Exposure to well water but no order or household members with diarrhea or similar symptoms. She is dehydrated with elevated lactic acid and has had 15 pound weight loss recently.
Gen: NAD, awake and alert, NCAT, appears chronically ill
Eyes: EOMI, PERRLA, no scleral icterus.
Neck: supple.
CV: continues to remain RRR, +S1/S2, no m/r/g.
Resp: continues to remain CTAB, no rales, wheezes, or rhonchi.
Abd: +BS, soft, NT, nontender
Skin: No rashes.
Neuro: CN 2-12 intact, non-focal.
Psych: Normal mood and affect
CT A/P 03/08: Pancolitis. The appearance of the accordion sign of wall/calcific haustral fold thickening in this cecum and ascending colon is very suggestive for the diagnosis of pseudomembranous colitis. No evidence of pneumatosis. No perforation.
No distention to suggest toxic megacolon. Generalized haziness of the mesenteric fat and peritoneal fat, consistent with diffuse edema and third spacing. Mild ascites. No focal collection identified suspicious for abscess. Probable mild small bowel
dysmotility/ileus. Small bilateral pleural effusions. There appear to be multiple splenic components, as described. Correlate with clinical history of prior surgery or trauma.
CT A/P 03/11: Diffuse wall thickening of the colon redemonstrated. Marked haustral thickening in the right colon and proximal transverse colon again noted. Findings without significant change, and consistent with pseudomembranous colitis.
Redemonstration of pleural effusions. These have progressed. These are accompanied by compressive partial atelectasis in the lower lobes. Redemonstration of ascites, anasarca, and diffuse mesenteric edema. The ascites is slightly worse than
previously.
Sepsis due to acute C. difficile colitis:
-with acute metabolic encephalopathy
-Leukocytosis now again improving, frequency of diarrhea improving
-hypotension has resolved, remains afebrile
-imaging above
-was on IVFs, now off considering CT A/P 03/11 findings of volume overload (pleural effusions, ascites, anasarca, diffuse mesenteric edema). Will allow pt to autodiurese. Strict I/Os, daily wts (wt down 1kg).
-cont Dificid as per ID
New onset afib:
-cont bisoprolol
-Dr. West has stopped Eliquis at this time () with plan to restart in 2 weeks
Other problems:
Hypokalemia, resolved
Hyponatremia, resolved
Hypophosphatemia, resolved
Essential HTN: cont BB/Norvasc
Elevated troponin is nonischemic myocardial injury due to sepsis
Parkinson disease: cont Sinemet
Hypocalcemia, resolved (corrected Ca normal)
FULL/Lovenox
Dispo: Will discuss timing of d/c with ID.
Anticipated Discharge: Within 24 hours
Subjective/Interval History
-
Date of Service: March 14, 2025
No new complaints. Reports diarrhea yesterday when taking meds with applesauce.
Objective Data
-
Labs:
Laboratory Results
03/14/25
06:25
WBC 14.4 H
Hgb 12.2
Hct 34.5 L
Plt Count 349
Sodium 137
Potassium 3.7
Chloride 108 H
Carbon Dioxide 24
BUN 41 H
Creatinine 0.8
Glucose 124 H
Calcium 7.6 L
Vital Signs:
Vital Signs
Temp Pulse Resp BP Pulse Ox
97.7 F 97 18 117/77 96
03/14/25 07:35 03/14/25 07:35 03/14/25 07:35 03/14/25 07:35 03/14/25 07:35
I&O
03/13/25 03/14/25 03/15/25
06:59 06:59 06:59
Intake Total 600 / 600 680 / 680
Balance 600 / 600 680 / 680
[2025-03-14 09:20] VITALS: BP 145/87; PULSE 80
--- NOTE | 2025-03-14 10:28 | W.PN.ID1 ---
Date of Service
Date of Service: March 14, 2025
Today's Communication
improving diarrhea today
Assessment / Plan
# C. difficile colitis (2nd episode 18 months apart)
# Fever resolved
#Leukocytosis - trended up
# New onset Afib.
-Bcx's x 2 neg
- CT x2 no megacolon; + pseudomembranous colitis
- Diarrhea improving. Pt clinically improving.
-s/p 4d metronidazole IV
- Pt very deconditioned - will benefit from rehab; she is agreeable.
- For SNF rehab placement. Spoke to field case manager.
- Trend wbc
- Continue fidaxomicin 200mg po bid x10 days through 03/17.
- SNF does not carry fidaxomicin due to cost.
is willing to fill and pay for remaining fidaxomicin cost ($465) and bring med to SNF for patient to complete.
Dr Octavio Steiner'd script via eCW for Fidaxomicin 200mg po bid x 4 days, no refill, to [facility]. When in stock, will berry picker med.
# Conditions present on admission
Parkinson's
Hypertension
CAD
Splenectomy due to trauma age 25
HCV from blood transfusion s/p treatment, resolved
Anxiety/depression
Osteoporosis
C. diff x1 2023
Chief Complaint
-: C-diff
Subjective / Review of Systems
afebrile
bp stable
improving diarrhea today, yesterday 'was terrible'
Vital Signs / Physical Exam
Vital Signs
Vital Signs
Temp Pulse Resp BP Pulse Ox
97.7 F 97 18 117/77 96
03/14/25 07:35 03/14/25 07:35 03/14/25 07:35 03/14/25 07:35 03/14/25 07:35
Physical Exam
Constitutional: No Acute Distress
Cardiovascular: Regular Rate and S1/S2; Negative Murmur or Rub
Pulmonary: Clear and Symmetric; Negative Wheezes or Rales
Gastrointestinal: Soft, Non Tender, Non Distended and Normal Bowel Sounds
Skin: Warm and Dry; Negative Rash or Jaundice
Objective Data
Lab Data
Lab Results
03/14/25 06:25
03/14/25 06:25
APTT 77.2 Sec (23.4-35.0) H 03/09/25 06:29
Estimated Creat Clear 42 ml/min 03/14/25 06:25
Lactic Acid 2.1 mmol/L (0.7-2.0) H 03/08/25 12:37
Total Bilirubin 0.5 mg/dl (0.2-1.3) 03/10/25 07:02
AST 45 U/L (14-36) H 03/10/25 07:02
ALT < 10 U/L (0-35) 03/10/25 07:02
Alkaline Phosphatase 88 U/L (38-126) 03/10/25 07:02
Most recent labs reviewed.
Micro Results:
03/06/25 21:13 Blood Culture - Final
Blood/Venous No Growth - Final Report
03/06/25 18:31 Blood Culture - Final
Blood/Venous No Growth - Final Report
03/07/25 06:23 Salmonella/Shigella Culture - Final
Feces/Stool No Salmonella, Shigella, Aeromonas or Plesiomonas species
isolated.
Campylobacter Culture - Final
No Campylobacter species isolated.
Shiga Toxin Test - Final
No E. coli Shiga Toxin 1 or 2 detected.
03/06/25 22:30 Urine Culture - Final
Urine
03/07/25 06:23 Cryptosporidium/Giardia - Final
Feces/Stool Negative for Cryptosporidium and/or Giardia Lamblia
antigens.
03/07/25 06:23 C. difficile GDH Antigen & Toxins - Final
Feces/Stool Toxigenic C.difficile Positive
03/08/25 CT a/p: Radiographic appearance of the colon, as described, with pancolitis. The appearance of the accordion sign of wall/calcific haustral fold thickening in this cecum and ascending colon is very suggestive for the diagnosis of
pseudomembranous colitis. No evidence of pneumatosis. No perforation. No distention to suggest toxic megacolon.
--- NOTE | 2025-03-14 12:27 | CM ---
Addendum entered by Frank Christie 03/14/25 13:12:
Received call from [facility]/admissions, confirmed bed today at [facility]. Spouse agreeable.
Hospitalist updated, will place d/c order
Updated nurse
IMM reviewed w/ spouse, copy on chart
[facility]
Report: [phone]

Plan: D/c to [facility] SNF today
Original Note:
Chart reviewed. Plan for SNF at d/c. [facility] and [facility] accepted pending bed availability. [facility] did not accept, no private rooms available
Patient requires iso room at SNF for c diff.
Spoke w/ spouse, confirmed he spoke w/ hospitalist as requested this morning. CM reviewed [facility] and [facility] as options for today if bed is available. CM spoke w/ [facility]/admissions, confirmed [facility] does not have a bed today. Will call CM
back about a possible bed today at [facility]
Patient will need ambulance transport, forms on chart
Plan: SNF; pending bed availability
--- NOTE | 2025-03-14 13:45 | W.DCSUMMARY ---
Discharge Summary
Discharge Data
Date of Admission: 03/06/25
Date of Discharge: 03/14/25
-
Pending Results: No
Hospital Course
Primary diagnoses:
Sepsis due to acute C. difficile colitis
Acute metabolic encephalopathy
New onset atrial fibrillation
Secondary diagnoses:
Hypokalemia
Hyponatremia
Hypophosphatemia
Essential hypertension
Elevated troponin is nonischemic myocardial injury due to sepsis
Parkinson disease
Hypocalcemia
Consultants:
Infectious disease
Gastroenterology
Cardiology
Imaging:
CT A/P 03/08: Pancolitis. The appearance of the accordion sign of wall/calcific haustral fold thickening in this cecum and ascending colon is very suggestive for the diagnosis of pseudomembranous colitis. No evidence of pneumatosis. No perforation.
No distention to suggest toxic megacolon. Generalized haziness of the mesenteric fat and peritoneal fat, consistent with diffuse edema and third spacing. Mild ascites. No focal collection identified suspicious for abscess. Probable mild small bowel
dysmotility/ileus. Small bilateral pleural effusions. There appear to be multiple splenic components, as described. Correlate with clinical history of prior surgery or trauma.
CT A/P 03/11: Diffuse wall thickening of the colon redemonstrated. Marked haustral thickening in the right colon and proximal transverse colon again noted. Findings without significant change, and consistent with pseudomembranous colitis.
Redemonstration of pleural effusions. These have progressed. These are accompanied by compressive partial atelectasis in the lower lobes. Redemonstration of ascites, anasarca, and diffuse mesenteric edema. The ascites is slightly worse than
previously.
79-year-old female presented with a chief complaint of weakness as outlined in the H&P done on admission. Hospital course per problem list:
Sepsis due to acute C. difficile colitis: Patient presented with weakness and diarrhea and met sepsis criteria on admission. All imaging above. The patient's C. difficile toxin was positive the patient was placed on fidaxomicin. She also received
a short course of Flagyl. Her leukocytosis and diarrhea improved, albeit slowly, while hospitalized. Patient was supported with IV fluids and her hypotension resolved. The patient will complete her Dificid course on March 17, 2025.
New onset afib: The patient was placed on bisoprolol. She was also placed on Eliquis initially. This was stopped by Dr. West on with a plan to restart AC in 2 weeks.
Discharge Plan
-
Patient Disposition: Long Term/SNF
Discharge Diagnosis/Procedures: Sepsis due to acute C. difficile colitis, New onset atrial fibrillation
Condition: Fair
Diet: Low Cholesterol, Low Sodium and Low Residue
Activity: As tolerated
Driving Restrictions: Not until seen by your Dr
Referrals:
Jaylin Dailey CRNP [Specified Professional Personl, Cardiology] - 03/26/25 8:40 am
UNKNOWN - PT DOES,NOT KNOW [Family Provider] - in less than 1 week
Additional Discharge Medication Instructions: Patient to take own medicine Fidaxomicin (Dificid) 200mg po bid through 03/17/25.
Prescriptions:
New
fidaxomicin [Dificid] 200 mg Tablet
200 mg PO BID Qty: 1 0RF
Rx Instructions:
through 03/17/25
amlodipine 5 mg Tablet
5 mg PO DAILY Qty: 0 0RF
bisoprolol fumarate 10 mg Tablet
10 mg PO DAILY Qty: 0 0RF
pramipexole 0.25 mg Tablet
0.25 mg PO HS Qty: 1 0RF
calcium carbonate-vitamin D3 [Oyster Shell Calcium-Vit D3] 500 mg-5 mcg (200 unit) Tablet
1 tab PO TID Qty: 0 0RF
melatonin 5 mg Tablet
5 mg PO HS Qty: 0 0RF
Continued
estradiol 1 APPLIC cream
1 applic S .TWICE PER WEEK
carbidopa-levodopa 1 EACH tablet
1 ea PO 0600,1000,1400,1800
rasagiline 1 MG tablet
1 mg PO DAILY
famotidine 20 mg tablet
20 mg PO DAILY
carbidopa-levodopa 25-100 mg Tablet
1 tab PO HS
Discontinued
bisoprolol fumarate 5 MG tablet
5 mg PO DAILY
lisinopril 10 MG tablet
10 mg PO DAILY Qty: 20 0RF
amlodipine 2.5 mg tablet
2.5 mg PO DAILY Qty: 30 0RF
Discharge Orders:
Discharge Patient (As Directed); Ordered 03/14/25
Ordered By: Dashawn Back
Discharge Date and Time
Print Language: PORTUGUESE
[2025-03-14 15:34] VITALS: BP 127/74
== END 2025-03-14 16:00 | DRG 871 ==
LOC: 3 WEST ACU 20:42
PROVIDERS: Family Medicine; Nurse Practitioner; Nurse Practitioner Family; Physician Assistant Medical; ADMITTING PHYSICIAN Internal Medicine; ATTENDING PHYSICIAN Internal Medicine; CONSULT PHYSICIAN Internal Medicine Gastroenterology; CONSULT PHYSICIAN Internal Medicine Infectious Disease; EMERGENCY PHYSICIAN Emergency Medicine; OTHER PHYSICIAN Internal Medicine Cardiovascular Disease
DX: A41.9 Sepsis, unspecified organism (principal); G93.41 Metabolic encephalopathy; E87.1 Hypo-osmolality and hyponatremia; I5A Non-ischemic myocardial injury (non-traumatic); R64 Cachexia; Z68.1 Body mass index [BMI] 19.9 or less, adult; K56.7 Ileus, unspecified; A04.71 Enterocolitis due to Clostridium difficile, recurrent; I48.0 Paroxysmal atrial fibrillation; Z87.891 Personal history of nicotine dependence; I95.9 Hypotension, unspecified; G20.A1 Parkinson's disease without dyskinesia, without mention of fluctuations; E83.51 Hypocalcemia; I10 Essential (primary) hypertension; E87.6 Hypokalemia; E83.39 Other disorders of phosphorus metabolism
CPT/HCPCS: 70450; 74176; 74177; 80048; 80053; 81003; 81015; 82248; 82306; 82330; 82652; 83605; 83690; 83735; 83935; 83970; 84100; 84300; 84443; 84484; 85025; 85027; 85730; 87040; 87045; 87046; 87086; 87324; 87328; 87329; 87427; 87449; 93005; 93306; 96361; 96365; 96375; 97116; 97162; 97530; 99285; Q9967

== ENCOUNTER 2025-03-17 09:23 | Inpatient (IN) | payer MEDICARE, OTHER, SELFPAY ==
[2025-03-16] VITALS (16 sets, daily range): BP systolic 102–155; BP diastolic 66–87; BMI 16.1; BMI 16.5
[2025-03-16 05:51] LABS: Hematocrit 33.2 % (37.0-47.0); Hemoglobin 11.7 g/dL (12.0-16.0); Mean Corp Hgb Conc. 35.2 g/dL (33.0-37.0); Mean Corpuscular Volume 96.2 fL (81.0-99.0); Platelet Count 373 10^3/uL (130-400); Red Cell Dist. Width 13.6 % (11.5-14.5)
[2025-03-16 05:55] LABS: ALT (SGPT) < 10 U/L (0-35); AST (SGOT) 36 U/L (14-36); Albumin 2.4 g/dl (3.5-5.0); Alkaline Phosphatase 51 U/L (38-126); Blood Urea Nitrogen 43 mg/dl (7-17); Calcium 7.2 mg/dl (8.4-10.2); Carbon Dioxide 26 mmol/L (22-30); Chloride 109 mmol/L (98-107); Glucose 95 mg/dl (70-99); Potassium 3.2 mmol/L (3.5-5.1); Total Protein 4.5 g/dl (6.3-8.2); eGFR > 60.00
[2025-03-16 06:00] LABS: Sodium 140 mmol/L (135-145)
[2025-03-16 07:24] LABS: Absolute Neutrophils -Man Diff 14.0 10^3/uL (1.4-6.5); Platelets Checked Yes; Total Cells Counted 100; Toxic Granulation 1+
[2025-03-16 07:25] LABS: Acanthocytes Occasional; Normal RBC Morphology No; Ovalocytes 1+; Target Cells 1+
[2025-03-16] MEDS: KCL ELIXIR 40 MEQ PO (09:28)
[2025-03-16] MEDS: NSS 500 IV (09:28)
--- NOTE | 2025-03-16 09:42 | ED.GENMED ---
History of Present Illness
General
Chief Complaint: Musculo-Skeletal Complaint
Source: patient, spouse and family
Time Seen by Provider: 03/16/25 06:39
History of Present Illness
History of Present Illness:
Note:
CHIEF COMPLAINT(S)
Bilateral knee pain and swelling, primarily affecting the left leg.
HISTORY OF PRESENT ILLNESS
The patient is a 79-year-old female presenting with significant bilateral knee pain and swelling, predominantly in the left leg. The patient reported that the pain began in the left knee and subsequently affected both knees. She described the left
leg as being 'really swollen' and stated that a nurse advised her to visit the emergency room due to the appearance of the swelling. The patient mentioned recent hospitalization followed by rehabilitation at a nursing facility. She expressed
difficulty in bending her knees due to stiffness. On examination, the left leg was notably swollen up to the hip, with the right lower extremity showing mild edema.
Additional historian
Spouse and daughter states that patient was quite concerned about her discomfort last night and called them throughout the night on the phone. They also admit that really she has not been eating very well
PHYSICAL EXAM
General: Alert, no acute distress.
Lower Extremities: Significant edema in the left leg extending to the hip, mild edema in the right lower extremity; left leg is more swollen compared to the right. Feet warm and well-perfused bilaterally.
Abdomen: No distention, mild diffuse tenderness, no rebound
Respiratory: No respiratory distress. No JVD
Upper extremities: No edema bilaterally
Neuro: No focal deficits. Awake alert and oriented x 3
PLAN
Arrange for an ultrasound of the left leg to assess the extent of the edema.
DIFFERENTIAL DIAGNOSIS
The Differential Diagnosis includes, in no particular order and is not limited to:
1. Deep vein thrombosis
2. Cellulitis
3. Osteoarthritis
4. Rheumatoid arthritis
5. Gout
6. Venous insufficiency
7. Lymphedema
8. Bakers cyst
9. Septic arthritis
10. Heart failure
Disposition:
SUMMARY OF ENCOUNTER
A 79-year-old female presented to the emergency department with concerns of bilateral knee pain and significant swelling, particularly affecting the left leg. The patient has a history of pancolitis and C. difficile colitis, and has recently been
transferred to a halfway facility after hospitalization. She reported progressive lower extremity edema and persistent diarrhea. The family expressed dissatisfaction with the current nursing facility. In the emergency department, she
experienced multiple episodes of diarrhea. Laboratory results showed elevated white blood cell count, significant bandemia, hypokalemia, hypocalcemia, low total protein, and hypoalbuminemia. An ultrasound of the lower extremities revealed no
evidence of deep vein thrombosis.
DISPOSITION
Admit
ASSESSMENT
Concerns for third-spacing edema due to hypoalbuminemia, likely contributed to by poor nutritional intake and ongoing colitis. Hypokalemia and hypocalcemia need correction, and persistent diarrhea should be addressed.
REASSESSMENT
The patient had at least four episodes of diarrhea while in the emergency department.
PLAN
Admit the patient to the hospital for management of electrolyte imbalances, ongoing diarrhea, and to address nutritional deficiencies. Coordinate with case management to ensure appropriate care and potential transfer from the current halfway
facility.
INDEPENDENT REVIEW OF LABS AND INTERPRETATION OF TESTS
My independent review of the complete blood count indicates an elevated white blood cell count of 14.9 with significant bandemia at 33%. My independent review of the BMP indicates hypokalemia with potassium at 3.2 and decreased BUN and creatinine
levels at 43/0.7, suggesting volume depletion. My independent review of the CMP reveals low calcium at 7.2, low total protein at 4.5, and low albumin at 2.4.
Radiology Results: My independent interpretation of the peripheral vascular ultrasound shows no evidence of deep vein thrombosis bilaterally.
MANAGEMENT OF THE PATIENTS CARE WAS DISCUSSED WITH
Discussed with case management regarding patient admission and coordination of further care, including potential transfer from the current halfway facility.
MEDICATION RECONCILIATION
Replenishment of electrolyte imbalances will be addressed in the inpatient setting. No specific prescription medications were mentioned in the transcript.
MEDICAL DECISION MAKING
- Number and Complexity of Problems Addressed: Chronic conditions affecting care include pancolitis, ongoing C. difficile colitis, and nutritional deficiencies contributing to edema and electrolyte imbalances. Differential diagnoses considered for
edema include deep vein thrombosis, cellulitis, osteoarthritis, rheumatoid arthritis, gout, venous insufficiency, lymphedema, Bakers cyst, septic arthritis, and heart failure.
- Data:
- Category 1: Lab tests reviewed and independently interpreted include CBC and BMP in the emergency department. Peripheral vascular ultrasound independently reviewed.
- Category 3: Consultation with case management regarding admission and further care coordination.
- Risk: Consideration of Admission/Observation: Admission is warranted due to the complexity and risk of the patients presenting complaints, laboratory findings, ongoing colitis, and nutritional status. Prescription medication was not specifically
mentioned in the transcript, but electrolyte management will be conducted during hospitalization.
DIAGNOSIS
- Edema related to hypoalbuminemia (ICD-10 code: E88.89)
- Hypokalemia (ICD-10 code: E87.6)
- Hypocalcemia (ICD-10 code: E83.51)
- Protein-calorie malnutrition (ICD-10 code: E43)
- C. difficile colitis
Past History
Past History
ED Past Medical History: HTN, Psychiatric (Anxiety and depression) and Other (Parkinson's)
ED Past Surgical History: Gynecological (Hysterectomy) and Other (Splenectomy)
Social History
Tobacco: Non-smoker
Alcohol: Occasional
Drug: None
Personal:
Living: with family
Employment: Retired
Phy Exam
Physical Exam
Physical Exam:
.
Course
Orders/Labs/Results
Orders:
Orders
03/16/25 05:20
Complete Blood Count/With Diff Urgent
Comprehensive Metabolic Panel Urgent
Manual Differential Urgent
03/16/25 07:07
US Periph Venous LOWER Ext Khoi Urgent
Comment:
Reason For Exam: L > R edema, recent hospitalization
03/16/25 07:12
0.9% Sodium Chloride 500 ml [Nss] 500 ml IV BOLUS
03/16/25 08:31
Potassium Chloride 10% Elixir [KCl Elixir] 40 meq PO NOW STA
03/16/25 09:41
Calcium Gluconate 1 gram/100mL [Calcium Gluconate] 1 gram in 100 ml IV ONCE
03/16/25 09:42
Case Management Consult ONCE
Case Management Consult: Discharge Planning
03/16/25 10:14
Potassium Chloride [KCl] 40 meq 0.9% Sodium Chloride 250 ml [Nss] 250 ml IV NOW
03/16/25 10:26
Electrocardiogram (*1) Urgent
Reason for Study: QTc Monitoring
EKG- Treatment ONCE
Abnormal Lab Results
03/16/25
05:20
WBC 14.9 H 10^3/uL
(4.8-10.8)
RBC 3.45 L 10^6/uL
(4.20-5.40)
Hgb 11.7 L g/dL
(12.0-16.0)
Hct 33.2 L %
(37.0-47.0)
MCH 33.9 H pg
(27.0-31.0)
Abs Neuts (Manual) 14.0 H 10^3/uL
(1.4-6.5)
Band Neutrophils 33 H %
(0-3)
Lymphocytes (Manual) 4 L %
(20-51)
Potassium 3.2 L mmol/L
(3.5-5.1)
Chloride 109 H mmol/L
(98-107)
BUN 43 H mg/dl
(7-17)
Calcium 7.2 L mg/dl
(8.4-10.2)
Total Protein 4.5 L g/dl
(6.3-8.2)
Albumin 2.4 L g/dl
(3.5-5.0)
03/16/25 05:20
03/16/25 05:20
Vital Signs
Initial and Last Documented VS:
Initial Vital Signs
Pulse Resp BP Pulse Ox
85 24 111/66 100
03/16/25 03:00 03/16/25 03:00 03/16/25 03:00 03/16/25 03:00
Last Documented Vital Signs
Temp Pulse Resp BP Pulse Ox
98.2 F 88 16 126/75 98
03/16/25 06:25 03/16/25 08:00 03/16/25 08:00 03/16/25 07:00 03/16/25 09:42
*Pulse Oximetry
SaO2: 98
Oxygen Mode of Delivery: Room air
Patient hypoxic: no
*Critical Care Note
Total Time (30-74mins, 75-104mins- exclusive of procedures): Not Applicable
ED Attending Note
-
Portions of this chart may have been created with voice recognition software.� Occasional wrong word or��sound alike� substitutions may have occurred due to the inherent limitations of voice recognition software.
Discharge Plan
Departure
Patient Disposition: Admit
Date of Disposition: 03/16/25
Time of Disposition: 09:42
Admit to: Med/Surg
Presentation/result/management discussed w/ accepting MD/DO: Hospitalist
Discharge Problem:
Hypocalcemia, Hypokalemia, Hypoalbuminemia, Edema, C. difficile colitis
Prescriptions:
No Action
estradiol 1 APPLIC cream
1 applic S .TWICE PER WEEK
carbidopa-levodopa 1 EACH tablet
1 ea PO 0600,1000,1400,1800
rasagiline 1 MG tablet
1 mg PO DAILY
famotidine 20 mg tablet
20 mg PO DAILY
carbidopa-levodopa 25-100 mg Tablet
1 tab PO HS
fidaxomicin [Dificid] 200 mg Tablet
200 mg PO BID Qty: 1 0RF
Rx Instructions:
through 03/17/25
amlodipine 5 mg Tablet
5 mg PO DAILY Qty: 0 0RF
bisoprolol fumarate 10 mg Tablet
10 mg PO DAILY Qty: 0 0RF
pramipexole 0.25 mg Tablet
0.25 mg PO HS Qty: 1 0RF
calcium carbonate-vitamin D3 [Oyster Shell Calcium-Vit D3] 500 mg-5 mcg (200 unit) Tablet
1 tab PO TID Qty: 0 0RF
melatonin 5 mg Tablet
5 mg PO HS Qty: 0 0RF
Referrals:
UNKNOWN - PT NOT,INTERVIEWE [Family Provider]
Interventions
Interventions:
*Risk Screen - Suicide Last Done: 03/16/25 06:26
*General Assessment Last Done: 03/16/25 06:26
*Neglect/Abuse Screening Last Done: 03/16/25 06:26
*ED- Fall Risk Assessment Last Done: 03/16/25 06:26
*ED COVID-19 Vaccine History Last Done: 03/16/25 06:26
*ED Influenza Vaccine History Last Done: 03/16/25 06:26
ED-Musculoskeletal Assessment Last Done: 03/16/25 06:29
Discharge Date and Time
Print Language: KISWAHILI
[2025-03-16] MEDS: CALCIUM GLUCONATE 100 IV (10:16)
[2025-03-16] MEDS: KCL 270 MEQ IV (11:21)
--- NOTE | 2025-03-16 11:26 | HPS.HSE ---
Family Physician
-
Family Physician: INTERVIEWE UNKNOWN - PT NOT
Chief Complaint
-
B/L LE edema, diarrhea
History of Present Illness
79 y/o F with PMHx:
Recent admission for sepsis due to C diff colitis
Afib, new onset on recent admission
Hypokalemia
Essential hypertension
Parkinson disease
Who presents with a chief complaints of worsening diarrhea and increased lower extremity edema. The patient and family are not happy with the current [facility] facility. The patient reports that she has had worsening diarrhea since she left
the hospital. In the ER, as per discussion with ER attending, she has had about 5 episodes of diarrhea. Denies abdominal pain, nausea, vomiting. Denies chest pain, shortness of breath, fever. Denies any other acute complaints.
Medical History
Past Medical History
Past Medical History: Reports Other (as per HPI)
Past Surgical History: Reports Other (N/A)
Social History
Tobacco: Non-smoker
Alcohol: None
Drug: None
Family History
Family History: Not pertinent
Allergies / Home Medications
Allergies reflects when Allergies were last updated in [facility].
Home Medications with original date entered in [facility]
Allergy/Medication List:
Allergies
Allergy/AdvReac Type Severity Reaction Status Date / Time
COVID-19 vaccine, mRNA, Allergy Hives Verified 03/16/25 02:56
[id number], L
COVID-19 vaccine, mRNA, Allergy Hives Verified 03/16/25 02:56
[id number],
latex Allergy Rash Verified 03/16/25 02:56
Sulfa (Sulfonamide Allergy Hives Verified 03/16/25 02:56
Antibiotics)
Home Medications
carbidopa 25 mg-levodopa 100 mg tablet 1 ea PO 0600,1000,1400,1800 parkinson's disease 05/18/19
estradiol 0.01% (0.1 mg/gram) vaginal cream 1 applic S .TWICE PER WEEK Hormonal Agent 05/18/19
rasagiline 1 mg tablet 1 mg PO DAILY Neurological Condition 05/18/19
carbidopa 25 mg-levodopa 100 mg tablet 1 tab PO HS parkinson's disease 03/06/25
famotidine 20 mg tablet 20 mg PO DAILY Gastrointestinal Issue 03/06/25
amlodipine 5 mg tablet 5 mg PO DAILY #0 tabs 03/14/25
bisoprolol fumarate 10 mg tablet 10 mg PO DAILY #0 tabs 03/14/25
calcium 500 mg (as carbonate)-vitamin D3 5 mcg (200 unit) tablet (Oyster Shell Calcium-Vitamin D3) 1 tab PO TID #0 tabs 03/14/25
fidaxomicin 200 mg tablet (Dificid) 200 mg PO BID #1 tab 03/14/25
melatonin 5 mg tablet 5 mg PO HS #0 tabs 03/14/25
pramipexole 0.25 mg tablet 0.25 mg PO HS #1 tab 03/14/25
Review of Systems
-
History Source: Patient
A 12 point ROS was completed and negative except as noted: Yes
Physical Exam
Vital Signs
Vital Signs
Temp Pulse Resp BP Pulse Ox
98.3 F 98 17 135/72 98
03/16/25 11:22 03/16/25 11:22 03/16/25 11:22 03/16/25 11:22 03/16/25 11:22
Physical Exam
General: Other (.)
Laboratory Results
-
03/16/25 05:20
03/16/25 05:20
Laboratory Results
Total Bilirubin 0.4 mg/dl (0.2-1.3) 03/16/25 05:20
AST 36 U/L (14-36) 03/16/25 05:20
ALT < 10 U/L (0-35) 03/16/25 05:20
Alkaline Phosphatase 51 U/L (38-126) 03/16/25 05:20
Impression/Plan
-
Gen: NAD, AAOx3.
Eyes: EOMI, PERRLA, no scleral icterus.
Neck: supple.
CV: RRR, +S1/S2, no m/r/g.
Resp: CTAB, no rales, wheezes, or rhonchi.
Abd: +BS, soft, NT, mod distention
Skin: No rashes.
Neuro: CN 2-12 intact, non-focal.
Psych: Normal mood and affect.
B/L LE U/S: No evidence of deep venous thrombosis of the lower extremities bilaterally.
B/L LE edema:
-likely due to third spacing from hypoalbuminemia
-B/L LE U/S without DVT
-unfortunately, with diarrhea, will need to support the patient with IV fluids. Will also give IV albumin in an attempt to mobilize fluid.
Recent admission for sepsis due to C diff colitis:
-cont Dificid through 03/17/25
-pt reports persistent diarrhea, also with bandemia, will c/s ID
-IVF and albumin support
Other problems:
Afib, new onset on recent admission: plan was to start Eliquis late February/early March as per Dr. West last admission
Hypokalemia, replete, trend
Essential hypertension: Hold Norvasc for now
Parkinson disease: cont Sinemet
FULL/Lovenox
[2025-03-16 12:07] LABS: Magnesium 1.7 mg/dl (1.6-2.3)
[2025-03-16] MEDS: FLEXBUMIN 100 IV ×2 (13:06→21:41)
--- NOTE | 2025-03-16 14:29 | CM ---
CM received consult, reviewed chart and spoke to pt's over the phone, pt was sleeping.
Pt was at [facility] for STR since 03/14. Pt's does not want her to return there. He has Medicare.gov printout and is only interested in [facility] [place] facilities. He is willing to pay out of pocket if needed and is willing to pay in advance to
hold a bed. He is interested in [facility], [facility] and [facility].
Prior to last admission pt lived with her in 2 story home, [address]. Has first floor half bath, full flight to second floor bedroom and full bath. She needs assistance with ADLs and personal care, ambulates with rolling walker. Has a hospital
bed.
VILLALOBOS reviewed over the phone with .
Confirms prescription coverage.
PCP: Kanchan Polo
Pharmacy: [facility]
Anticipate discharge to SNF for continued STR, CM will continue to follow for all discharge planning needs.
[2025-03-16] MEDS: D5/0.45%NACL 1000 IV ×2 (14:38→22:28)
[2025-03-16] MEDS: SINEMET 25-100 1 TABLET PO ×4 (14:39→21:45)
--- NOTE | 2025-03-16 15:06 | CON.ID ---
Consultation
-
Date/Time Consultation Requested: 03/16/2025 1131
Date/Time Consultation Performed: 03/16/2025 1500
Requesting Provider: Dr. Back
Performing Provider: Dr. Mckeon
Reason for Consultation: Diarrhea
Chief Complaint / Past History
Chief Complaint
Diarrhea
History of Present Illness
Frida Gil is a 79-year-old female with a significant past medical history of Parkinson's disease, prior splenectomy and recurrent C. difficile being evaluated in Infectious Diseases consultation at the request of Dr. Back regarding ongoing
diarrhea. History is obtained from chart review, along with patient interview. Additional history was obtained from review of old records contained in the hospital EMR system.
The patient is known to the Infectious Diseases service, having been seen in mid February of this year for recurrent C. difficile. At that time she had presented to the ER after 1 month history of diarrhea. There was a history of prior
ciprofloxacin use approximately 1 or 2 months prior. She was found to have leukocytosis and fever, both of which improved, as did stooling, and the patient was ultimately discharged on 03/14, to complete a course of fidaxomicin through 03/17/2025.
The patient presented back to the ER this a.m. with complaints of bilateral knee pain. While in the ER she developed multiple episodes of diarrhea, and laboratory workup revealed a leukocytosis with significant bandemia. Infectious Diseases asked
to comment on further antimicrobial therapy at this time.
Currently, the patient denies any specific pain. She denies any abdominal discomfort, but does feel bloated. She denies any dysuria.
Past History
Additional Past Medical History:
Parkinson's
Hypertension
CAD
Splenectomy due to trauma age 25
HCV from blood transfusion s/p treatment, resolved
Anxiety/depression
Osteoporosis
C. diff x1 2023
Allergy History:
COVID-19 vaccine, mRNA, [id number], L Allergy (Verified 03/16/25 02:56)
Hives
COVID-19 vaccine, mRNA, [id number], Allergy (Verified 03/16/25 02:56)
Hives
latex Allergy (Verified 03/16/25 02:56)
Rash
Sulfa (Sulfonamide Antibiotics) Allergy (Verified 03/16/25 02:56)
Hives
Medications Reviewed: Yes
Current Antibiotics:
P.o. vancomycin
Zosyn
Social History
Tobacco: Non-Smoker
Alcohol: None
Drug: None
Personal:
Living: With Family
Family History
Family History: Not Pertinent
Review of Systems
Vital Signs
Temp Pulse Resp BP Pulse Ox
98.3 F 98 17 138/78 98
03/16/25 11:22 03/16/25 11:22 03/16/25 11:22 03/16/25 13:27 03/16/25 15:00
Physical Exam
Physical Exam
Constitutional: Chronically Ill, Non-toxic and Cachetic
Head: Normocephalic
Eyes: Pupils Equal, Pupils Round, No Conjunctival Hemorrhage and Sclera Anicteric
Oral: No Thrush and No Ulcers
Cardiovascular: S1/S2; Negative S3/S4
Pulmonary: Clear; Negative Wheezes or Rales
Gastrointestinal: Soft, Distended (Mild), Normal Bowel Sounds, No Rebound, No Guarding and Other (Rectal tube in place; no stool in bag at this point)
Extremities: Edema; Negative Cyanosis or Erythema
Neurological: Awake and Alert
Psychological: Calm
Lab / Diagnostic Study Results
03/16/25 05:20
03/16/25 05:20
Total Counted 100 03/16/25 05:20
Abs Neuts (Manual) 14.0 10^3/uL (1.4-6.5) H 03/16/25 05:20
Segmented Neutrophils 61 % (42-75) 03/16/25 05:20
Band Neutrophils 33 % (0-3) H 03/16/25 05:20
Lymphocytes (Manual) 4 % (20-51) L 03/16/25 05:20
Assessment / Plan
Ongoing diarrhea
Leukocytosis with significant bandemia (on manual differential)
Recent history C. difficile
Parkinson's
Hypertension
CAD
Splenectomy due to trauma age 25
HCV from blood transfusion s/p treatment, resolved
Anxiety/depression
Osteoporosis
Cachexia / FFT
Recommendations:
Would continue with fidaxomicin at the present.
Will monitor for ongoing diarrhea or rising leukocytosis. If present, will add IV metronidazole +/- enteral vanco.
Monitor white count and temperature curve.
Care Review
Plan reviewed with: Physician (Hospitalist)
[2025-03-16] MEDS: DIFICID 200 MG PO ×2 (15:34→21:35)
[2025-03-16] MEDS: ZEBETA 10 MG PO (15:34)
[2025-03-16] MEDS: OSCAL 500 + D 500 MG PO ×2 (15:36→21:44)
[2025-03-16] MEDS: LOVENOX 40 MG SC (17:13)
--- NOTE | 2025-03-16 18:22 | PTCARENOTE ---
Pt just arrived from the ED via stretcher. Pt was a slide over to the bed. VSS. Placed on youth nutritional monitor. NSR. Pt on bed alarm. Call alcantara is within reach.
[2025-03-16] MEDS: MIRAPEX 0.25 MG PO (21:46)
[2025-03-17 03:40] VITALS: BP 125/64
[2025-03-17] MEDS: FLEXBUMIN 100 IV (05:00)
[2025-03-17 06:48] LABS: Hematocrit 28.3 % (37.0-47.0); Hemoglobin 9.1 g/dL (12.0-16.0); Mean Corp Hgb Conc. 32.2 g/dL (33.0-37.0); Mean Corpuscular Volume 102.9 fL (81.0-99.0); Nucleated Red Blood Cells % 0 %; Platelet Count 340 10^3/uL (130-400); Red Cell Dist. Width 14.5 % (11.5-14.5)
[2025-03-17 06:59] VITALS: BMI 16.1
[2025-03-17 07:00] VITALS: BP 127/69
[2025-03-17 07:10] LABS: Blood Urea Nitrogen 28 mg/dl (7-17); Calcium 8.0 mg/dl (8.4-10.2); Carbon Dioxide 27 mmol/L (22-30); Chloride 110 mmol/L (98-107); Estimated Creatinine Clearance 58 ml/min; Glucose 109 mg/dl (70-99); Magnesium 1.8 mg/dl (1.6-2.3); Potassium 3.8 mmol/L (3.5-5.1); Sodium 138 mmol/L (135-145); eGFR > 60.00
--- NOTE | 2025-03-17 09:21 | W.PN.HOSP.TC ---
Today's Communication/Plan
-
see bold
Assessment / Plan
Assessment / Plan
#Recent C. difficile colitis
Appreciate ID input, recommend dificid/fidaxomicin 200 mg p.o. twice daily
Continue IV fluids, trend fever and white count
#Bilateral lower extremity edema
Lower extremity Dopplers negative
From recent IV fluid, and hypoalbuminemia
#Anemia
Likely from infection, check iron studies/B12/folic acid
#Hypokalemia
Repleted and resolved
Magnesium normal
#Recent onset atrial fibrillation
Plan to start Eliquis late February/early March as per Dr. West last admission
Continue bisoprolol for rate control
#History of essential hypertension
Hold home amlodipine
#Parkinson disease
Continue Sinemet
DVT prophylaxis�subcu Lovenox
Full code
Total time spent to see the patient on the floor, examine the patient, review data and lab results, discuss treatment plan with patient, nursing staff around 51 minutes.
Physical Exam
General: Appears to not feel well, no acute distress
HEENT: Normocephalic, Atraumatic, EOMI, MMM
Respiratory: Clear to Auscultation bilaterally
Cardiac: Normal S1/S2, Regular Rate and Rhythm
GI: Soft, diffusely tender, Nondistended, Normal Bowel Sounds
Extremities: No Clubbing, Cyanosis
Bilateral lower extremity edema noted
Anticipated Discharge: 24 - 48 hours
Subjective/Interval History
-
Date of Service: March 17, 2025
Patient reports her diarrhea has improved since admission. Last episode of diarrhea was last night. Denies vomiting, denies abdominal pain. No fever.
Objective Data
-
Labs:
Laboratory Results
03/17/25
06:15
WBC 13.9 H
Hgb 9.1 L D
Hct 28.3 L
Plt Count 340
Sodium 138
Potassium 3.8
Chloride 110 H
Carbon Dioxide 27
BUN 28 H
Creatinine 0.6
Glucose 109 H
Calcium 8.0 L
Vital Signs:
Vital Signs
Temp Pulse Resp BP Pulse Ox
97.6 F 88 16 127/69 98
03/17/25 07:00 03/17/25 07:00 03/17/25 07:00 03/17/25 07:00 03/17/25 07:00
I&O
03/16/25 03/17/25 03/18/25
06:59 06:59 06:59
Intake Total 960 / 960
Balance 960 / 960
[2025-03-17] MEDS: RASAGILINE MESYLATE 1 MG PO (09:30)
[2025-03-17] MEDS: DIFICID 200 MG PO ×2 (09:30→20:03)
[2025-03-17] MEDS: PEPCID 20 MG PO (09:30)
[2025-03-17] MEDS: OSCAL 500 + D 500 MG PO ×2 (09:31→16:54)
[2025-03-17] MEDS: ZEBETA 10 MG PO (09:31)
[2025-03-17] MEDS: SINEMET 25-100 1 TABLET PO ×5 (09:31→21:52)
[2025-03-17] MEDS: D5/0.45%NACL 1000 IV (09:31)
[2025-03-17 11:00] VITALS: BP 120/74
--- NOTE | 2025-03-17 11:04 | W.PN.ID1 ---
Date of Service
Date of Service: March 17, 2025
Today's Communication
Continue Dificid. Monitor WBC and stool output and consistency.
Assessment / Plan
Ongoing diarrhea
- not clear if 2* ongoing C. diff vs. post-infectious syndrome vs. other
Leukocytosis with significant bandemia (on manual differential)
Recent history C. difficile
Parkinson's
Hypertension
CAD
Splenectomy due to trauma age 25
HCV from blood transfusion s/p treatment, resolved
Anxiety/depression
Osteoporosis
Cachexia / FFT
Recommendations:
Would continue with fidaxomicin at the present.
White count mildly improved today.
Will monitor for ongoing diarrhea or rising leukocytosis. If present, will consider adding IV metronidazole and/or enteral vanco.
Monitor white count and temperature curve.
����������������������������������������������������������
Chief Complaint
-: C-diff and Other (Diarrhea)
Subjective / Review of Systems
Review of Systems: No Fever, No Chills and No Abdominal Pain
Vital Signs / Physical Exam
Vital Signs
Vital Signs
Temp Pulse Resp BP Pulse Ox
97.6 F 88 16 127/69 98
03/17/25 07:00 03/17/25 07:00 03/17/25 07:00 03/17/25 07:00 03/17/25 07:00
Physical Exam
Constitutional: Comfortable, Chronically Ill and Cachetic
Eyes: No Conjunctival Hemorrhage
Cardiovascular: S1/S2; Negative S3/S4
Pulmonary: Non Labored
Gastrointestinal: Soft, Non Tender, Distended, Normal Bowel Sounds and Other (FMS in place with soft / liquid stool)
Neurological: Awake and Alert
Psychological: Calm
Objective Data
Lab Data
Lab Results
03/17/25 06:15
03/17/25 06:15
Estimated Creat Clear 58 ml/min 03/17/25 06:15
Total Bilirubin 0.4 mg/dl (0.2-1.3) 03/16/25 05:20
AST 36 U/L (14-36) 03/16/25 05:20
ALT < 10 U/L (0-35) 03/16/25 05:20
Alkaline Phosphatase 51 U/L (38-126) 03/16/25 05:20
Most recent labs reviewed.
[2025-03-17 15:00] VITALS: BP 117/67
[2025-03-17 15:44] VITALS: BMI 16.1
[2025-03-17] MEDS: LOVENOX 40 MG SC (16:54)
[2025-03-17] MEDS: TYLENOL 650 MG PO (16:54)
[2025-03-17 19:00] VITALS: BP 114/66
[2025-03-17] MEDS: OSCAL 500 + D PO ×2 (21:51→22:03)
[2025-03-17] MEDS: MIRAPEX 0.25 MG PO (21:52)
[2025-03-17 23:00] VITALS: BP 124/70
[2025-03-18 03:00] VITALS: BP 143/85
[2025-03-18 03:19] VITALS: BMI 16.8
[2025-03-18] MEDS: TYLENOL 650 MG PO ×3 (03:27→17:14)
[2025-03-18] MEDS: D5/0.45%NACL 1000 IV (04:06)
--- NOTE | 2025-03-18 04:09 | PTCARENOTE ---
Pt c/o pain to PCT and asking for pain meds. This RN went to assess pt noting her abd to be distended, and painful. FMS intact. LUIS Clay on floor to assess pt. Bladder scanned pt for 542. Straight cath pt for 400. FMS flushed. Tylenol
given - see MAR. Pt states she has relief. Care ongoing.
[2025-03-18 06:34] LABS: Hematocrit 31.9 % (37.0-47.0); Hemoglobin 10.6 g/dL (12.0-16.0); Mean Corp Hgb Conc. 33.2 g/dL (33.0-37.0); Mean Corpuscular Volume 100.3 fL (81.0-99.0); Platelet Count 418 10^3/uL (130-400); Red Cell Dist. Width 14.3 % (11.5-14.5)
[2025-03-18 06:44] LABS: Blood Urea Nitrogen 24 mg/dl (7-17); Calcium 7.2 mg/dl (8.4-10.2); Carbon Dioxide 27 mmol/L (22-30); Chloride 108 mmol/L (98-107); Estimated Creatinine Clearance 60 ml/min; Glucose 119 mg/dl (70-99); Iron 53 ug/dl (37-170); Potassium 3.7 mmol/L (3.5-5.1); Sodium 139 mmol/L (135-145); eGFR > 60.00
[2025-03-18 06:53] LABS: Total Iron Binding Capacity 142 ug/dl (265-497)
[2025-03-18 07:00] VITALS: BP 136/81
[2025-03-18 07:17] LABS: Ferritin 144.0 ng/ml (11.1-264.0)
[2025-03-18] MEDS: RASAGILINE MESYLATE 1 MG PO (09:07)
[2025-03-18] MEDS: OSCAL 500 + D 500 MG PO ×2 (09:07→21:22)
[2025-03-18] MEDS: PEPCID 20 MG PO (09:08)
[2025-03-18] MEDS: DIFICID 200 MG PO ×2 (09:08→21:22)
[2025-03-18] MEDS: SINEMET 25-100 1 TABLET PO ×5 (09:08→21:22)
[2025-03-18] MEDS: ZEBETA 10 MG PO (09:15)
--- NOTE | 2025-03-18 09:19 | W.PN.HOSP.TC ---
Today's Communication/Plan
-
see bold
Assessment / Plan
Assessment / Plan
#Recent C. difficile colitis
Appreciate ID input, recommend dificid/fidaxomicin 200 mg p.o. twice daily
Trend fever and white count
#Bilateral lower extremity edema
Lower extremity Dopplers negative
From recent IV fluids, and hypoalbuminemia
Compression stockings, give Lasix 40 mg IV x 1
#Abdominal distention
Check abdominal obstruction series, change low residue diet to full liquids
#Acute urinary retention
Requiring straight cath x 03/17
Continue bladder scan protocol
#Acute anemia
Likely from infection, iron studies adequate
#Hypokalemia
Repleted and resolved
Magnesium normal
#Hypocalcemia
Calcium 7.2, albumin 2.9
Corrected calcium due to low albumin, is 8.1
#Recent onset atrial fibrillation
Plan to start Eliquis late February/early March as per Dr. West last admission
Continue bisoprolol for rate control
#History of essential hypertension
Hold home amlodipine
#Parkinson disease
Continue Sinemet
DVT prophylaxis�subcu Lovenox
Full code
Updated family at bedside 03/18
Total time spent to see the patient on the floor, examine the patient, review data and lab results, discuss treatment plan with patient, nursing staff around 53 minutes.
Physical Exam
General: Appears to not feel well, no acute distress
HEENT: Normocephalic, Atraumatic, EOMI, MMM
Respiratory: Clear to Auscultation bilaterally
Cardiac: Normal S1/S2, Regular Rate and Rhythm
GI: Distended, diffuse tenderness, tympanic to percussion
Extremities: No Clubbing, Cyanosis
Bilateral lower extremity edema noted
Anticipated Discharge: > 48 hours
Subjective/Interval History
-
Date of Service: March 18, 2025
Patient had urinary retention yesterday, requiring straight cath x 1. Her abdomen is more distended today. She denies chest pain, denies shortness of breath. No fever, no vomiting.
Objective Data
-
Labs:
Laboratory Results
03/18/25
05:54
WBC 13.1 H
Hgb 10.6 L
Hct 31.9 L
Plt Count 418 H D
Sodium 139
Potassium 3.7
Chloride 108 H
Carbon Dioxide 27
BUN 24 H
Creatinine 0.6
Glucose 119 H
Calcium 7.2 L
Vital Signs:
Vital Signs
Temp Pulse Resp BP Pulse Ox
97.5 F 85 16 136/81 98
03/18/25 07:00 03/18/25 07:00 03/18/25 07:00 03/18/25 07:00 03/18/25 07:00
I&O
03/17/25 03/18/25 03/19/25
06:59 06:59 06:59
Intake Total 960 / 960 500 / 500 480 / 480
Output Total 400 / 400
Balance 960 / 960 100 / 100 480 / 480
--- NOTE | 2025-03-18 10:53 | CM ---
Met with patient at bedside with & daughter Kimberley
PT rec SNF
Discssed options of SNF, also recommended touring facilities
referrals requested by were entered in [facility]
PLAN: SNF, pending bed availability when stable
[2025-03-18 11:00] VITALS: BP 106/68
[2025-03-18] MEDS: LASIX 40 MG IV (11:33)
[2025-03-18] MEDS: KCL 20 MEQ PO (11:33)
[2025-03-18 13:03] LABS: Albumin 2.9 g/dl (3.5-5.0)
[2025-03-18 15:00] VITALS: BP 122/75
--- NOTE | 2025-03-18 15:22 | W.PN.ID1 ---
Date of Service
Date of Service: March 18, 2025
Today's Communication
Continue antibiotics.
Assessment / Plan
Ongoing diarrhea
- not clear if 2* ongoing C. diff vs. post-infectious syndrome vs. other
Leukocytosis with significant bandemia (on manual differential)
Recent history C. difficile
Parkinson's
Hypertension
CAD
Splenectomy due to trauma age 25
HCV from blood transfusion s/p treatment, resolved
Anxiety/depression
Osteoporosis
Cachexia / FFT
Recommendations:
Would continue with fidaxomicin at the present. Will add enteral vancomycin.
White count mildly improved today.
Consider advancing diet.
Monitor white count and temperature curve.
����������������������������������������������������������
Chief Complaint
-: C-diff and Other (Diarrhea)
Subjective / Review of Systems
Patient seen and examined. Notes ongoing loose stool. Remains on full liquids at this time.
Review of Systems: No Fever and No Chills
Vital Signs / Physical Exam
Vital Signs
Vital Signs
Temp Pulse Resp BP Pulse Ox
97.3 F 78 16 106/68 99
03/18/25 11:00 03/18/25 11:00 03/18/25 11:00 03/18/25 11:00 03/18/25 11:00
Physical Exam
Constitutional: Comfortable, Chronically Ill and Cachetic
Eyes: No Conjunctival Hemorrhage
Cardiovascular: S1/S2; Negative S3/S4
Pulmonary: Non Labored
Gastrointestinal: Soft, Non Tender, Distended, Normal Bowel Sounds and Other (FMS in place with soft / liquid stool)
Neurological: Awake and Alert
Psychological: Calm
Objective Data
Lab Data
Lab Results
03/18/25 05:54
03/18/25 05:54
Estimated Creat Clear 60 ml/min 03/18/25 05:54
Total Bilirubin 0.4 mg/dl (0.2-1.3) 03/16/25 05:20
AST 36 U/L (14-36) 03/16/25 05:20
ALT < 10 U/L (0-35) 03/16/25 05:20
Alkaline Phosphatase 51 U/L (38-126) 03/16/25 05:20
Most recent labs reviewed.
--- NOTE | 2025-03-18 15:48 | PN.CDI ---
CDI
- -
CDI:
Physician Documentation Request
Admit Date: 03/17/25 09:23
Dear Doctor,
patient admitted with diarrhea.
03/17 Surgeon Partner Assessment: 'During visit RD able to visulize temporal wasting, apparent ribs, protrusion of clavical, orbital area sunken in.
With < 75% estimated needs > 1 month and observed muscle and fat wasting pt meets AND/ASPEN criteria for moderate protein calorie malnutrition of chronic illness. '
Based on the above information and your assessment, which of the following most accurately represents the patient's nutritional status?
Moderate protein calorie malnutrition
Other
Seeley Criteria ([facility] Hospitalist 2017)
2 or more criteria must be present for either
non severe or severe malnutrition
Note that the criteria differs related to the
presence of an acute or chronic illness
Acute Illness Chronic Illness
Energy Intake Non Severe: <75% for >7 days Non Severe: <75% for >1 month
Severe: <50% for >5 days Severe: <75% for >1 month
Weight Loss Non Severe: 1-2% over 1 week Non Severe: 5% over 1 month
5% over 1 month 7.5% over 3 months
7.5% over 3 months 10% over 6 months
1 year N/A 20% over 1 year
Severe: >2% over 1 week Severe: >5% over 1 month
>5% over 1 month >7.5% over 3 months
>7.5% over 3 months >10% over 6 months
1 year N/A >20% over 1 year
Body Fat Non Severe: Mild Decrease Non Severe: Mild Loss
Severe: Moderate Decrease Severe: Severe Loss
Muscle Mass Non Severe: Mild Decrease Non Severe: Mild Loss
Severe: Moderate Decrease Severe: Severe Loss
Fluid Accumulation Non Severe: Mild Accumulation Non Severe: Mild Accumulation
Severe: Moderate to severe Severe: Moderate to severe
accumulation accumulation
Reduced Airplane Fueler Strength Non Severe: N/A Non Severe: N/A
Severe: Measurably reduced Severe: Measurably reduced
Additional criteria that can be used to Determine if Mild or Moderate Malnutrition ([employer]ck Manual 2018)
Mild Moderate Severe
Albumin gm/dl <3.0 gm/dl <2.5 gm/dl <2.0 gm/dl
Pre Albumin mg/dl <15 gm/dl <10 mg/dl <5.0 mg/dl
BMI <18.5 <17 <16
Use of terms such as suspected, likely, concern for, or probable (associated with a specific diagnosis that is being evaluated, monitored, or treated as if it exists) are acceptable and can be coded in the inpatient setting, when documented at the
time of discharge.
Thank you,
Dolores Jarvis RN, BSN
CDI Specialist
Available via [place] text
Please use your independent medical judgment in providing your response.
[2025-03-18] MEDS: OSCAL 500 + D PO (17:14)
[2025-03-18] MEDS: LOVENOX 40 MG SC (17:14)
[2025-03-18] MEDS: FIRVANQ PO (18:14)
[2025-03-18 19:35] VITALS: BP 118/73
--- NOTE | 2025-03-18 20:15 | PTCARENOTE ---
Made aware by other RN that pt FMS out. LUIS Clay notified. LUIS advised this RN to trial pt off of FMS since pt having less freq liquid stools and passing gas. Will monitor pt symptoms.
[2025-03-18] MEDS: MIRAPEX 0.25 MG PO (21:22)
[2025-03-18 23:15] VITALS: BP 130/81
[2025-03-19] VITALS (7 sets, daily range): BP systolic 107–126; BP diastolic 61–70; PULSE 115
--- NOTE | 2025-03-19 02:30 | DOWNTIME ---
There was a [employer] Client [employer] Downtime on 03/19/2025 from 0100 to 03/19/2025 at 0215. Downtime documentation of patient's care, including medication administrations, has been reconciled in the electronic record per guidelines. Refer to the
patient's paper chart under the miscellaneous tab to see printed paper medication records and downtime forms.
[2025-03-19] MEDS: FIRVANQ 125 MG PO ×5 (05:16→23:52)
[2025-03-19 08:01] LABS: Hematocrit 31.8 % (37.0-47.0); Hemoglobin 10.6 g/dL (12.0-16.0); Mean Corp Hgb Conc. 33.3 g/dL (33.0-37.0); Mean Corpuscular Volume 103.6 fL (81.0-99.0); Platelet Count 449 10^3/uL (130-400); Red Cell Dist. Width 14.5 % (11.5-14.5)
[2025-03-19 08:29] LABS: Blood Urea Nitrogen 24 mg/dl (7-17); Calcium 7.1 mg/dl (8.4-10.2); Carbon Dioxide 28 mmol/L (22-30); Chloride 107 mmol/L (98-107); Estimated Creatinine Clearance 60 ml/min; Glucose 95 mg/dl (70-99); Potassium 3.7 mmol/L (3.5-5.1); Sodium 138 mmol/L (135-145); eGFR > 60.00
--- NOTE | 2025-03-19 09:14 | W.PN.HOSP.TC ---
Today's Communication/Plan
-
see bold
Assessment / Plan
Assessment / Plan
#Recent C. difficile colitis
Appreciate ID input, recommend dificid/fidaxomicin 200 mg p.o. twice daily and adding 1/4 cup Kafir daily
Trend fever and white count
#Bilateral lower extremity edema
Lower extremity Dopplers negative
From recent IV fluids, and hypoalbuminemia
S/p Lasix 40 mg IV x 1
#Abdominal distention
Obstruction series shows nonspecific bowel gas pattern
Advance diet to low residue
#Acute urinary retention
Requiring straight cath x 03/17
Continue bladder scan protocol
#Acute anemia
Likely from infection, iron studies adequate
#Hypokalemia
Repleted and resolved
Magnesium normal
#Hypocalcemia
Calcium 7.2, albumin 2.9
Corrected calcium due to low albumin, is 8.1
#Recent onset atrial fibrillation
Plan to start Eliquis late February/early March as per Dr. West last admission
Continue bisoprolol for rate control
#Moderate protein calorie malnutrition
Encourage oral intake
#History of essential hypertension
Hold home amlodipine
#Parkinson disease
Continue Sinemet
DVT prophylaxis�subcu Lovenox
Full code
Updated family at bedside 03/18
Total time spent to see the patient on the floor, examine the patient, review data and lab results, discuss treatment plan with patient, nursing staff around 43 minutes.
Physical Exam
General: Appears to not feel well, no acute distress
HEENT: Normocephalic, Atraumatic, EOMI, MMM
Respiratory: Clear to Auscultation bilaterally
Cardiac: Normal S1/S2, Regular Rate and Rhythm
GI: Less distended, nontender, tympanic to percussion
Extremities: No Clubbing, Cyanosis
Bilateral lower extremity edema noted
Anticipated Discharge: Within 24 hours
Subjective/Interval History
-
Date of Service: March 19, 2025
Patient reports feeling better. Abdominal distention improved. Denies abdominal pain. Diarrhea improved. No fever, no vomiting.
Objective Data
-
Labs:
Laboratory Results
03/19/25
07:00
WBC 12.2 H
Hgb 10.6 L
Hct 31.8 L
Plt Count 449 H
Sodium 138
Potassium 3.7
Chloride 107
Carbon Dioxide 28
BUN 24 H
Creatinine 0.6
Glucose 95
Calcium 7.1 L
Vital Signs:
Vital Signs
Temp Pulse Resp BP Pulse Ox
97.8 F 90 16 126/70 99
03/19/25 07:00 03/19/25 07:00 03/19/25 07:00 03/19/25 07:00 03/19/25 07:00
I&O
03/18/25 03/19/25 03/20/25
06:59 06:59 06:59
Intake Total 500 / 500 1540 / 1540
Output Total 400 / 400
Balance 100 / 100 1540 / 1540
[2025-03-19] MEDS: SINEMET 25-100 1 TABLET PO ×5 (09:27→23:32)
[2025-03-19] MEDS: DIFICID 200 MG PO ×2 (09:27→23:32)
[2025-03-19] MEDS: OSCAL 500 + D 500 MG PO ×3 (09:27→23:32)
[2025-03-19] MEDS: RASAGILINE MESYLATE 1 MG PO (09:27)
[2025-03-19] MEDS: ZEBETA 10 MG PO (09:28)
[2025-03-19] MEDS: PEPCID 20 MG PO (09:28)
[2025-03-19] MEDS: TYLENOL 650 MG PO (09:35)
--- NOTE | 2025-03-19 10:40 | W.PN.ID1 ---
Date of Service
Date of Service: March 19, 2025
Today's Communication
Continue current antibiotics.
Assessment / Plan
Ongoing diarrhea
- not clear if 2* ongoing C. diff vs. post-infectious syndrome vs. other
Leukocytosis with significant bandemia (on manual differential)
Recent history C. difficile
Parkinson's
Hypertension
CAD
Splenectomy due to trauma age 25
HCV from blood transfusion s/p treatment, resolved
Anxiety/depression
Osteoporosis
Cachexia / FFT
Recommendations:
Continue with fidaxomicin and enteral vancomycin.
Leukocytosis with continued although slow improvement.
Diet to be advanced.
Discussed with family. I have suggested addition of 1/4 cup Kafir daily.
Monitor white count / temperature curve / stool amount and consistency
����������������������������������������������������������
Chief Complaint
-: C-diff and Other (Diarrhea)
Subjective / Review of Systems
Patient seen and examined. Notes ongoing loose stool. Little-no abdominal discomfort.
Review of Systems: No Fever and No Chills
Vital Signs / Physical Exam
Vital Signs
Vital Signs
Temp Pulse Resp BP Pulse Ox
97.8 F 90 16 126/70 99
03/19/25 07:00 03/19/25 07:00 03/19/25 07:00 03/19/25 07:00 03/19/25 07:00
Physical Exam
Constitutional: Comfortable, Chronically Ill and Cachetic
Eyes: No Conjunctival Hemorrhage
Cardiovascular: S1/S2; Negative S3/S4
Pulmonary: Non Labored
Gastrointestinal: Soft, Non Tender, Distended (Mild) and Normal Bowel Sounds
Neurological: Awake and Alert
Psychological: Calm
Objective Data
Lab Data
Lab Results
03/19/25 07:00
03/19/25 07:00
Estimated Creat Clear 60 ml/min 03/19/25 07:00
Total Bilirubin 0.4 mg/dl (0.2-1.3) 03/16/25 05:20
AST 36 U/L (14-36) 03/16/25 05:20
ALT < 10 U/L (0-35) 03/16/25 05:20
Alkaline Phosphatase 51 U/L (38-126) 03/16/25 05:20
Most recent labs reviewed.
Care Review
Plan reviewed with: Physician (Hospitalist)
--- NOTE | 2025-03-19 15:13 | CM ---
patient seen at bedside
called & discussed referral choices
[facility] accepted & has bed avail tomorrow
tt hospitalist
will call CM tomorrow morning regarding which facility to send patient
PLAN: SNF, CM will continue to follow
--- NOTE | 2025-03-19 16:43 | PTCARENOTE ---
pt denies abd pain, medicated with Tylenol for c/o left hip, left leg and back pain with some relief, abd less distended, poor intake, Po's encouraged, diarrhea improving, sat oob in chair for about 1 hour, vss, will continue to monitor.
[2025-03-19] MEDS: LOVENOX 40 MG SC (17:18)
[2025-03-19] MEDS: MIRAPEX 0.25 MG PO (23:32)
[2025-03-20 03:00] VITALS: BP 94/57
[2025-03-20] MEDS: FIRVANQ 125 MG PO (06:12)
[2025-03-20 06:36] LABS: Hematocrit 27.2 % (37.0-47.0); Hemoglobin 9.2 g/dL (12.0-16.0); Mean Corp Hgb Conc. 33.8 g/dL (33.0-37.0); Mean Corpuscular Volume 103.0 fL (81.0-99.0); Platelet Count 353 10^3/uL (130-400); Red Cell Dist. Width 15.0 % (11.5-14.5)
[2025-03-20 07:00] VITALS: BP 126/73
[2025-03-20 07:13] LABS: Blood Urea Nitrogen 32 mg/dl (7-17); Calcium 7.1 mg/dl (8.4-10.2); Carbon Dioxide 26 mmol/L (22-30); Chloride 106 mmol/L (98-107); Estimated Creatinine Clearance 45 ml/min; Glucose 82 mg/dl (70-99); Magnesium 1.5 mg/dl (1.6-2.3); Potassium 3.6 mmol/L (3.5-5.1); Sodium 134 mmol/L (135-145); eGFR > 60.00
[2025-03-20] MEDS: ZEBETA 10 MG PO (08:40)
[2025-03-20] MEDS: OSCAL 500 + D 500 MG PO ×3 (08:40→22:36)
[2025-03-20] MEDS: DIFICID 200 MG PO ×2 (08:40→22:35)
[2025-03-20] MEDS: SINEMET 25-100 1 TABLET PO ×5 (08:40→22:36)
[2025-03-20] MEDS: RASAGILINE MESYLATE 1 MG PO (08:40)
[2025-03-20] MEDS: PEPCID 20 MG PO (08:40)
--- NOTE | 2025-03-20 09:04 | W.PN.HOSP.TC ---
Today's Communication/Plan
-
For repeat CT of the abdomen and pelvis today
Assessment / Plan
Assessment / Plan
#Recent C. difficile colitis
Appreciate ID input, recommend dificid/fidaxomicin 200 mg p.o. twice daily and adding 1/4 cup Kafir daily
Leukocytosis worsened today at 27.8, ID recommends checking CT abdomen and pelvis
Trend fever and white count
#Bilateral lower extremity edema
Lower extremity Dopplers negative
From recent IV fluids, and hypoalbuminemia
S/p Lasix 40 mg IV x 1, continue compression stockings
#Abdominal distention
Obstruction series shows nonspecific bowel gas pattern
Advanced diet to low residue, which she is tolerating
#Acute urinary retention
Requiring straight cath x 03/17
Continue bladder scan protocol
#Acute anemia
Likely from infection, iron studies adequate
#Hypokalemia
#Hypomagnesemia
Replete as needed
#Hypocalcemia
Calcium 7.2, albumin 2.9
Corrected calcium due to low albumin, is 8.1
#Recent onset atrial fibrillation
Plan to start Eliquis late February/early March as per Dr. West last admission
Continue bisoprolol for rate control
#Moderate protein calorie malnutrition
Encourage oral intake
#History of essential hypertension
Hold home amlodipine
Her blood pressure is 102/67 without any blood pressure medications
Recommend permanently discontinuing amlodipine
#Parkinson disease
Continue Sinemet
DVT prophylaxis�subcu Lovenox
Full code
Updated family at bedside 03/20
Total time spent to see the patient on the floor, examine the patient, review data and lab results, discuss treatment plan with patient, nursing staff around 51 minutes.
Physical Exam
General: Appears to not feel well, no acute distress
HEENT: Normocephalic, Atraumatic, EOMI, MMM
Respiratory: Clear to Auscultation bilaterally
Cardiac: Normal S1/S2, Regular Rate and Rhythm
GI: Less distended, nontender, tympanic to percussion
Extremities: No Clubbing, Cyanosis
Bilateral lower extremity edema noted
Anticipated Discharge: 24 - 48 hours
Subjective/Interval History
-
Date of Service: March 20, 2025
Patient denies abdominal pain. No nausea, no vomiting. She is having several episodes of watery green diarrhea today. No fever. Denies chest pain, denies shortness of breath.
Objective Data
-
Labs:
Laboratory Results
03/20/25
06:17
WBC 27.8 H
Hgb 9.2 L
Hct 27.2 L
Plt Count 353 D
Sodium 134 L
Potassium 3.6
Chloride 106
Carbon Dioxide 26
BUN 32 H
Creatinine 0.8
Glucose 82
Calcium 7.1 L
Vital Signs:
Vital Signs
Temp Pulse Resp BP Pulse Ox
97.4 F 86 18 126/73 96
03/20/25 07:00 03/20/25 08:40 03/20/25 07:00 03/20/25 08:40 03/20/25 07:00
I&O
03/19/25 03/20/25 03/21/25
06:59 06:59 06:59
Intake Total 1540 / 1540 500 / 500 480 / 480
Balance 1540 / 1540 500 / 500 480 / 480
--- NOTE | 2025-03-20 10:15 | CM ---
Addendum entered by Lisa Ellison 03/20/25 10:31:
per hospitalist not discharging today d/t wbc
notified [facility] liaison regarding tentative tomorrow dc-will hold bed
PLAN: [facility] when stable
REPORT #: [phone]
FAX #: [phone]
Transportation forms on chart
Original Note:
spoke with patient
Prefer [facility] - Bed available today per [facility] Liaison, would like 5pm set up
aware to bring dificid
COVID test ordered
PLAN: [facility]
REPORT #: [phone]
FAX #: [phone]
Transportation forms on chart
[2025-03-20] MEDS: MAGNESIUM SULFATE 50 IV (10:56)
[2025-03-20 10:57] VITALS: BP 102/64
[2025-03-20] MEDS: ALBUMIN 5% 250 IV ×2 (10:57→12:38)
[2025-03-20 11:36] LABS: COVID-19 Antigen Negative (Negative)
[2025-03-20] MEDS: FLAGYL 500 MG 100 IV ×2 (13:03→22:30)
[2025-03-20] MEDS: FIRVANQ 500 MG PO ×3 (13:03→23:12)
--- NOTE | 2025-03-20 14:03 | W.PN.ID1 ---
Date of Service
Date of Service: March 20, 2025
Today's Communication
Continue antibiotics. Check CT abdomen/pelvis
Assessment / Plan
Ongoing diarrhea
- not clear if 2* ongoing C. diff vs. post-infectious syndrome vs. other
Leukocytosis with significant bandemia (on manual differential)
Recent history C. difficile
Parkinson's
Hypertension
CAD
Splenectomy due to trauma age 25
HCV from blood transfusion s/p treatment, resolved
Anxiety/depression
Osteoporosis
Cachexia / FFT
Recommendations:
Marked leukocytosis noted today.
Continue with fidaxomicin.
Increase vancomycin to 500 mg QID.
Add metronidazole 500 mg q.[address] abdomen/pelvis.
Monitor white count / temperature curve / stool amount and consistency
����������������������������������������������������������
Chief Complaint
-: C-diff and Other (Diarrhea)
Subjective / Review of Systems
Patient notes some increased abdominal distention and lower abdomen 'pressure'. Denies overt pain. Liquid stool persist.
Vital Signs / Physical Exam
Vital Signs
Vital Signs
Temp Pulse Resp BP Pulse Ox
97.3 F 80 17 102/64 98
03/20/25 10:57 03/20/25 10:57 03/20/25 10:57 03/20/25 10:57 03/20/25 10:57
Physical Exam
Constitutional: Comfortable, Chronically Ill and Cachetic (Marked)
Eyes: No Conjunctival Hemorrhage
Cardiovascular: S1/S2; Negative S3/S4
Pulmonary: Non Labored
Gastrointestinal: Soft, Tender (Mild), Distended (Mild), Decreased Bowel Sounds, No Rebound, No Guarding and Other (No rigidity)
Extremities: Edema; Negative Cyanosis or Erythema
Neurological: Awake and Alert
Psychological: Calm
Objective Data
Lab Data
Lab Results
03/20/25 06:17
03/20/25 06:17
Estimated Creat Clear 45 ml/min 03/20/25 06:17
Total Bilirubin 0.4 mg/dl (0.2-1.3) 03/16/25 05:20
AST 36 U/L (14-36) 03/16/25 05:20
ALT < 10 U/L (0-35) 03/16/25 05:20
Alkaline Phosphatase 51 U/L (38-126) 03/16/25 05:20
Most recent labs reviewed.
Care Review
Plan reviewed with: Physician (Hospitalist)
[2025-03-20 14:53] VITALS: BP 102/67
[2025-03-20] MEDS: OMNIPAQUE 50 ML PO (15:01)
[2025-03-20] MEDS: LOVENOX 40 MG SC (18:32)
[2025-03-20 19:29] VITALS: BP 133/75
[2025-03-20] MEDS: MIRAPEX 0.25 MG PO (22:35)
[2025-03-20] MEDS: TYLENOL 650 MG PO (23:05)
[2025-03-20 23:39] VITALS: BP 158/91
[2025-03-21] VITALS (7 sets, daily range): BP systolic 113–152; BP diastolic 75–96; PULSE 90
[2025-03-21] MEDS: FLAGYL 500 MG 100 IV ×3 (04:19→20:47)
[2025-03-21] MEDS: TYLENOL 650 MG PO ×2 (04:28→20:53)
[2025-03-21] MEDS: FIRVANQ 500 MG PO ×4 (05:58→23:15)
[2025-03-21 06:43] LABS: Hematocrit 26.0 % (37.0-47.0); Hemoglobin 9.1 g/dL (12.0-16.0); Mean Corp Hgb Conc. 35.0 g/dL (33.0-37.0); Mean Corpuscular Volume 99.6 fL (81.0-99.0); Platelet Count 363 10^3/uL (130-400); Red Cell Dist. Width 14.9 % (11.5-14.5)
[2025-03-21 07:05] LABS: Blood Urea Nitrogen 33 mg/dl (7-17); Calcium 7.5 mg/dl (8.4-10.2); Carbon Dioxide 26 mmol/L (22-30); Chloride 107 mmol/L (98-107); Estimated Creatinine Clearance 52 ml/min; Glucose 89 mg/dl (70-99); Magnesium 2.0 mg/dl (1.6-2.3); Potassium 3.6 mmol/L (3.5-5.1); Sodium 138 mmol/L (135-145); eGFR > 60.00
[2025-03-21] MEDS: ZEBETA 10 MG PO (08:13)
[2025-03-21] MEDS: OSCAL 500 + D 500 MG PO ×3 (08:13→23:01)
[2025-03-21] MEDS: SINEMET 25-100 1 TABLET PO ×5 (08:13→23:01)
[2025-03-21] MEDS: RASAGILINE MESYLATE 1 MG PO (08:14)
[2025-03-21] MEDS: PEPCID 20 MG PO (08:14)
[2025-03-21] MEDS: DIFICID 200 MG PO ×2 (08:14→20:47)
[2025-03-21 08:33] LABS: Absolute Neutrophils -Man Diff 9.1 10^3/uL (1.4-6.5); Hypochromasia 1+; Normal RBC Morphology No; Platelets Checked Yes; Polychromasia 1+
[2025-03-21 08:34] LABS: Acanthocytes 1+; Ovalocytes FEW; Total Cells Counted 100
--- NOTE | 2025-03-21 08:55 | W.PN.HOSP.TC ---
Today's Communication/Plan
-
see bold
Assessment / Plan
Assessment / Plan
#Recent C. difficile colitis
Appreciate ID input, recommend dificid/fidaxomicin 200 mg p.o. twice daily and adding 1/4 cup Kafir daily
03/20 ID added IV Flagyl and oral vancomycin
03/20 Leukocytosis worsened today at 27.8, CT abdomen and pelvis showed continued pancolitis
Trend fever and white count
#Bilateral lower extremity edema
#Diffuse anasarca
Lower extremity Dopplers negative
From recent IV fluids, and hypoalbuminemia
Lasix 80 mg IV x 1, continue compression stockings
#Abdominal distention
Obstruction series shows nonspecific bowel gas pattern
Advanced diet to low residue, which she is tolerating
#Acute urinary retention
Requiring straight cath x 03/17
Continue bladder scan protocol
#Acute anemia
Likely from infection, iron studies adequate
#Hypokalemia
#Hypomagnesemia
Replete as needed
#Hypocalcemia
Calcium 7.2, albumin 2.9
Corrected calcium due to low albumin, is 8.1
#Recent onset atrial fibrillation
Plan to start Eliquis late February/early March as per Dr. West last admission
Continue bisoprolol for rate control
#Moderate protein calorie malnutrition
Encourage oral intake
#History of essential hypertension
Hold home amlodipine
Her blood pressure is 102/67 without any blood pressure medications
Recommend permanently discontinuing amlodipine
#Parkinson disease
Continue Sinemet
DVT prophylaxis�subcu Lovenox
Full code
Updated family at bedside 03/21
Total time spent to see the patient on the floor, examine the patient, review data and lab results, discuss treatment plan with patient, nursing staff around 41 minutes.
Physical Exam
General: Appears to not feel well, no acute distress
HEENT: Normocephalic, Atraumatic, EOMI, MMM
Respiratory: Clear to Auscultation bilaterally
Cardiac: Normal S1/S2, Regular Rate and Rhythm
GI: Less distended, nontender, tympanic to percussion
Extremities: No Clubbing, Cyanosis
Bilateral lower extremity edema noted
Anticipated Discharge: > 48 hours
Subjective/Interval History
-
Date of Service: March 21, 2025
Patient reports feeling like she has more energy today. She continues to have watery diarrhea. Denies chest pain, denies shortness of breath. No fever, no vomiting.
Objective Data
-
Labs:
Laboratory Results
03/21/25
05:39
WBC 9.8
Hgb 9.1 L
Hct 26.0 L
Plt Count 363
Sodium 138
Potassium 3.6
Chloride 107
Carbon Dioxide 26
BUN 33 H
Creatinine 0.7
Glucose 89
Calcium 7.5 L
Vital Signs:
Vital Signs
Temp Pulse Resp BP Pulse Ox
97.5 F 89 16 152/96 98
03/21/25 08:07 03/21/25 08:13 03/21/25 08:07 03/21/25 08:13 03/21/25 08:07
I&O
03/20/25 03/21/25 03/22/25
06:59 06:59 06:59
Intake Total 500 / 500 1979
Balance 500 / 500 1979
[2025-03-21] MEDS: KCL 40 MEQ PO (10:04)
[2025-03-21] MEDS: LASIX 80 MG IV (10:05)
--- NOTE | 2025-03-21 11:05 | CM ---
patient seen at bedside
per hospitalist not stable for discharge today
AGUILAR Marrufo at [facility]
PLAN: SNF, pending bed availability when stable
--- NOTE | 2025-03-21 14:43 | W.PN.ID1 ---
Date of Service
Date of Service: March 21, 2025
Today's Communication
Continue current antibiotics.
Assessment / Plan
Ongoing diarrhea
- not clear if 2* ongoing C. diff vs. post-infectious syndrome vs. other
Leukocytosis with significant bandemia (on manual differential)
Recent history C. difficile
Parkinson's
Hypertension
CAD
Splenectomy due to trauma age 25
HCV from blood transfusion s/p treatment, resolved
Anxiety/depression
Osteoporosis
Cachexia / FFT
Recommendations:
Marked leukocytosis noted yesterday has improved today, although for unclear reasons. I am not sure that improvement can be solely attributed to the addition of IV metronidazole and increasing the dose of enteral vancomycin.
Given severity of disease, would continue with current antibiotics over the next several days and follow for improvement in stooling and stabilization of white count.
If diarrhea persists, may consider surgical evaluation for colectomy.
Continue to monitor white count / temperature curve / stool amount and consistency
����������������������������������������������������������
Chief Complaint
-: C-diff and Other (Diarrhea)
Subjective / Review of Systems
Patient seen and examined. Reports ongoing diarrhea. Notes some abdominal fullness/discomfort, but not overt pain.
Vital Signs / Physical Exam
Vital Signs
Vital Signs
Temp Pulse Resp BP Pulse Ox
97.5 F 78 16 122/76 98
03/21/25 08:07 03/21/25 11:18 03/21/25 11:18 03/21/25 11:18 03/21/25 11:18
Physical Exam
Constitutional: Comfortable, Chronically Ill, Non-toxic and Cachetic (Significant)
Eyes: No Conjunctival Hemorrhage
Cardiovascular: S1/S2; Negative S3/S4
Pulmonary: Non Labored
Gastrointestinal: Soft, Tender (Mild), Distended (Mild), Decreased Bowel Sounds, No Rebound, No Guarding and Other (No rigidity)
Extremities: Edema; Negative Cyanosis or Erythema
Neurological: Awake and Alert
Psychological: Calm
Objective Data
Lab Data
Lab Results
03/21/25 05:39
03/21/25 05:39
Estimated Creat Clear 52 ml/min 03/21/25 05:39
Total Bilirubin 0.4 mg/dl (0.2-1.3) 03/16/25 05:20
AST 36 U/L (14-36) 03/16/25 05:20
ALT < 10 U/L (0-35) 03/16/25 05:20
Alkaline Phosphatase 51 U/L (38-126) 03/16/25 05:20
Most recent labs reviewed.
Imaging:
03/20/2025 CT abdomen/pelvis with IV/oral contrast: severe acute C. difficile pancolitis with interval decrease in colonic wall thickening when compared to prior CT examinations. Small volume abdominal and pelvic ascites noted. There is severe
diffuse anasarca. Moderate size bilateral pleural effusions. Severe periportal edema in the liver. Please see full dictation for additional detail.
Care Review
Plan reviewed with: Physician (Hospitalist)
[2025-03-21] MEDS: LOVENOX 40 MG SC (17:04)
[2025-03-21] MEDS: MIRAPEX 0.25 MG PO (23:01)
[2025-03-22 03:15] VITALS: BP 128/72
[2025-03-22] MEDS: FLAGYL 500 MG 100 IV ×3 (04:31→20:17)
[2025-03-22] MEDS: FIRVANQ 500 MG PO ×3 (05:46→17:16)
--- NOTE | 2025-03-22 07:43 | W.PN.HOSP.TC ---
Today's Communication/Plan
-
see bold
Assessment / Plan
Assessment / Plan
#Recent C. difficile colitis
Appreciate ID input, recommend dificid/fidaxomicin 200 mg p.o. twice daily and adding 1/4 cup Kafir daily
03/20 ID added IV Flagyl and oral vancomycin
03/20 Leukocytosis worsened today at 27.8, CT abdomen and pelvis showed continued pancolitis
Trend fever and white count
#Bilateral lower extremity edema
#Diffuse anasarca
Lower extremity Dopplers negative
From recent IV fluids, and hypoalbuminemia
S/p lasix 80 mg IV x 1, continue compression stockings
#Abdominal distention
Obstruction series shows nonspecific bowel gas pattern
Advanced diet to low residue, which she is tolerating
#Acute urinary retention
Requiring straight cath x 03/17
Continue bladder scan protocol
#Acute anemia
Likely from infection, iron studies adequate
#Hypokalemia
#Hypomagnesemia
Replete as needed
#Hypocalcemia
Calcium 7.2, albumin 2.9
Corrected calcium due to low albumin, is 8.1
#Recent onset atrial fibrillation
Plan to start Eliquis late February/early March as per Dr. West last admission
Continue bisoprolol for rate control
#Moderate protein calorie malnutrition
Encourage oral intake
#History of essential hypertension
Hold home amlodipine
Her blood pressure is 102/67 without any blood pressure medications
Recommend permanently discontinuing amlodipine
#Parkinson disease
Continue Sinemet
DVT prophylaxis�subcu Lovenox
Full code
Updated family at bedside 03/22
Total time spent to see the patient on the floor, examine the patient, review data and lab results, discuss treatment plan with patient, nursing staff around 40 minutes.
Physical Exam
General: Appears to not feel well, no acute distress
HEENT: Normocephalic, Atraumatic, EOMI, MMM
Respiratory: Clear to Auscultation bilaterally
Cardiac: Normal S1/S2, Regular Rate and Rhythm
GI: Less distended, nontender, tympanic to percussion
Extremities: No Clubbing, Cyanosis
Bilateral lower extremity edema noted
Anticipated Discharge: > 48 hours
Subjective/Interval History
-
Date of Service: March 22, 2025
Patient reports feeling much better. Shortness of breath has resolved. Denies chest pain. No abdominal pain. She was nauseous, but did not vomit. She had a lot of watery diarrhea yesterday morning and afternoon, it has tapered off overnight and
this morning. No fever.
Objective Data
-
Labs:
Laboratory Results
03/22/25
07:30
WBC Pending
Hgb Pending
Hct Pending
Plt Count Pending
Sodium Pending
Potassium Pending
Chloride Pending
Carbon Dioxide Pending
BUN Pending
Creatinine Pending
Glucose Pending
Calcium Pending
Vital Signs:
Vital Signs
Temp Pulse Resp BP Pulse Ox
98.1 F 80 17 128/72 97
03/22/25 03:15 03/22/25 03:15 03/22/25 03:15 03/22/25 03:15 03/22/25 03:15
I&O
03/21/25 03/22/25 03/23/25
06:59 06:59 06:59
Intake Total 1979 560 / 560
Balance 1979 560 / 560
[2025-03-22 08:00] VITALS: BP 147/90
[2025-03-22] MEDS: PEPCID 20 MG PO (08:08)
[2025-03-22] MEDS: RASAGILINE MESYLATE 1 MG PO (08:08)
[2025-03-22] MEDS: DIFICID 200 MG PO ×2 (08:08→20:15)
[2025-03-22] MEDS: ZEBETA 10 MG PO (08:08)
[2025-03-22] MEDS: SINEMET 25-100 1 TABLET PO ×5 (08:08→21:27)
[2025-03-22] MEDS: OSCAL 500 + D 500 MG PO ×3 (08:19→21:27)
[2025-03-22 08:54] LABS: Hematocrit 30.6 % (37.0-47.0); Hemoglobin 10.2 g/dL (12.0-16.0); Mean Corp Hgb Conc. 33.3 g/dL (33.0-37.0); Mean Corpuscular Volume 100.3 fL (81.0-99.0); Platelet Count 406 10^3/uL (130-400); Red Cell Dist. Width 14.8 % (11.5-14.5)
[2025-03-22 09:17] LABS: Blood Urea Nitrogen 28 mg/dl (7-17); Calcium 7.7 mg/dl (8.4-10.2); Carbon Dioxide 31 mmol/L (22-30); Chloride 103 mmol/L (98-107); Estimated Creatinine Clearance 60 ml/min; Glucose 88 mg/dl (70-99); Potassium 3.4 mmol/L (3.5-5.1); Sodium 140 mmol/L (135-145); eGFR > 60.00
[2025-03-22] MEDS: KCL 40 MEQ PO (10:22)
[2025-03-22 12:24] VITALS: BP 140/80
[2025-03-22 13:07] VITALS: BMI 15.2
[2025-03-22 16:43] VITALS: BP 155/90
[2025-03-22] MEDS: LOVENOX 40 MG SC (17:16)
[2025-03-22 19:25] VITALS: BP 118/70
[2025-03-22] MEDS: MIRAPEX 0.25 MG PO (21:27)
[2025-03-22 23:46] VITALS: BP 126/72
[2025-03-23] MEDS: FIRVANQ 500 MG PO ×4 (01:00→17:24)
[2025-03-23 03:32] VITALS: BP 138/72
[2025-03-23] MEDS: FLAGYL 500 MG 100 IV ×3 (04:57→20:25)
[2025-03-23 06:43] VITALS: BMI 15.6
--- NOTE | 2025-03-23 08:06 | W.PN.HOSP.TC ---
Today's Communication/Plan
-
see bold
Assessment / Plan
Assessment / Plan
#Recent C. difficile colitis
Appreciate ID input, recommend dificid/fidaxomicin 200 mg p.o. twice daily and adding 1/4 cup Kafir daily
03/20 Leukocytosis worsened today at 27.8, CT abdomen and pelvis showed continued pancolitis
03/20 ID added IV Flagyl and oral vancomycin
Trend fever and white count
#Bilateral lower extremity edema
#Diffuse anasarca
Lower extremity Dopplers negative
From recent IV fluids, and hypoalbuminemia
S/p lasix 80 mg IV x 1, continue compression stockings
#Abdominal distention
Obstruction series shows nonspecific bowel gas pattern
Advanced diet to low residue, which she is tolerating
#Acute urinary retention
Requiring straight cath x 03/17
Continue bladder scan protocol
#Acute anemia
Likely from infection, iron studies adequate
#Hypokalemia
#Hypomagnesemia
Replete as needed
#Hypocalcemia
Calcium 7.2, albumin 2.9
Corrected calcium due to low albumin, is 8.1
#Recent onset atrial fibrillation
Plan to start Eliquis late February/early March as per Dr. West last admission
Continue bisoprolol for rate control
#Moderate protein calorie malnutrition
Encourage oral intake, added Ensure chocolate twice daily
#History of essential hypertension
Hold home amlodipine
Her blood pressure is acceptable without any blood pressure medications
Recommend permanently discontinuing amlodipine
#Parkinson disease
Continue Sinemet
DVT prophylaxis�subcu Lovenox
Full code
Updated family at bedside 03/22
Total time spent to see the patient on the floor, examine the patient, review data and lab results, discuss treatment plan with patient, nursing staff around 42 minutes.
Physical Exam
General: Appears to not feel well, no acute distress
HEENT: Normocephalic, Atraumatic, EOMI, MMM
Respiratory: Clear to Auscultation bilaterally
Cardiac: Normal S1/S2, Regular Rate and Rhythm
GI: Less distended, nontender, tympanic to percussion
Extremities: No Clubbing, Cyanosis
Bilateral lower extremity edema noted, improved from prior
Anticipated Discharge: 24 - 48 hours
Subjective/Interval History
-
Date of Service: March 23, 2025
Patient reports feeling weak and tired, she complains of diffuse pain in her back and bottom. Denies abdominal pain. Denies chest pain, shortness of breath. No fever, no vomiting.
Objective Data
-
Labs:
Laboratory Results
03/23/25
06:00
WBC Pending
Hgb Pending
Hct Pending
Plt Count Pending
Sodium Pending
Potassium Pending
Chloride Pending
Carbon Dioxide Pending
BUN Pending
Creatinine Pending
Glucose Pending
Calcium Pending
Vital Signs:
Vital Signs
Temp Pulse Resp BP Pulse Ox
97.8 F 60 17 138/72 98
03/23/25 03:32 03/23/25 03:32 03/23/25 03:32 03/23/25 03:32 03/23/25 03:32
I&O
03/22/25 03/23/25 03/24/25
06:59 06:59 06:59
Intake Total 560 / 560 200 / 200
Balance 560 / 560 200 / 200
[2025-03-23 08:09] VITALS: BP 138/86
[2025-03-23] MEDS: SINEMET 25-100 1 TABLET PO ×5 (09:09→21:50)
[2025-03-23] MEDS: ZEBETA 10 MG PO (09:09)
[2025-03-23] MEDS: RASAGILINE MESYLATE 1 MG PO (09:10)
[2025-03-23] MEDS: OSCAL 500 + D 500 MG PO ×3 (09:10→21:49)
[2025-03-23] MEDS: DIFICID 200 MG PO ×2 (09:10→20:24)
[2025-03-23] MEDS: PEPCID 20 MG PO (09:10)
--- NOTE | 2025-03-23 09:53 | PTCARENOTE ---
Ensure Enlive given at breakfast
[2025-03-23 10:12] LABS: Hematocrit 28.1 % (37.0-47.0); Hemoglobin 9.7 g/dL (12.0-16.0); Mean Corp Hgb Conc. 34.5 g/dL (33.0-37.0); Mean Corpuscular Volume 100.4 fL (81.0-99.0); Platelet Count 387 10^3/uL (130-400); Red Cell Dist. Width 15.0 % (11.5-14.5)
[2025-03-23 10:40] LABS: Blood Urea Nitrogen 28 mg/dl (7-17); Calcium 7.6 mg/dl (8.4-10.2); Carbon Dioxide 27 mmol/L (22-30); Chloride 107 mmol/L (98-107); Estimated Creatinine Clearance 56 ml/min; Glucose 87 mg/dl (70-99); Potassium 3.5 mmol/L (3.5-5.1); Sodium 136 mmol/L (135-145); eGFR > 60.00
[2025-03-23] MEDS: KLOR-CON 20 MEQ PO (11:36)
[2025-03-23] MEDS: TYLENOL 650 MG PO ×2 (11:37→20:24)
[2025-03-23 12:34] VITALS: BP 98/65
[2025-03-23 16:07] VITALS: BP 113/72
[2025-03-23] MEDS: LOVENOX 40 MG SC (17:24)
[2025-03-23 19:15] VITALS: BP 112/73
[2025-03-23] MEDS: MIRAPEX 0.25 MG PO (21:50)
[2025-03-23 23:15] VITALS: BP 187/93
[2025-03-24] VITALS (8 sets, daily range): BP systolic 101–174; BP diastolic 61–92; PULSE 84; O2SAT 99
[2025-03-24] MEDS: FIRVANQ 500 MG PO ×5 (00:25→23:01)
[2025-03-24] MEDS: NORVASC 5 MG PO (01:21)
[2025-03-24] MEDS: FLAGYL 500 MG 100 IV ×3 (03:07→19:16)
[2025-03-24 06:39] LABS: Hematocrit 27.8 % (37.0-47.0); Hemoglobin 9.6 g/dL (12.0-16.0); Mean Corp Hgb Conc. 34.5 g/dL (33.0-37.0); Mean Corpuscular Volume 100.0 fL (81.0-99.0); Platelet Count 350 10^3/uL (130-400); Red Cell Dist. Width 14.9 % (11.5-14.5)
[2025-03-24 07:10] LABS: Blood Urea Nitrogen 26 mg/dl (7-17); Calcium 7.9 mg/dl (8.4-10.2); Carbon Dioxide 29 mmol/L (22-30); Chloride 106 mmol/L (98-107); Estimated Creatinine Clearance 56 ml/min; Glucose 95 mg/dl (70-99); Potassium 3.4 mmol/L (3.5-5.1); Sodium 135 mmol/L (135-145); eGFR > 60.00
[2025-03-24] MEDS: DIFICID 200 MG PO ×2 (08:43→19:16)
[2025-03-24] MEDS: SINEMET 25-100 1 TABLET PO ×5 (08:43→21:06)
[2025-03-24] MEDS: ZEBETA 10 MG PO (08:43)
[2025-03-24] MEDS: OSCAL 500 + D 500 MG PO ×3 (08:43→21:06)
[2025-03-24] MEDS: RASAGILINE MESYLATE 1 MG PO (08:44)
[2025-03-24] MEDS: PEPCID 20 MG PO (08:44)
--- NOTE | 2025-03-24 10:21 | W.PN.HOSP.TC ---
Today's Communication/Plan
-
see plan
Assessment / Plan
Assessment / Plan
Gen: NAD, awake and alert, appears chronically ill malnourished
Eyes: EOMI, PERRLA, no scleral icterus.
Neck: supple.
CV: RRR, +S1/S2, no m/r/g.
Resp: CTAB, no rales, wheezes, or rhonchi.
Abd: +BS, soft, NT, ND
Skin: No rashes. 2+ B/L LE edema
Neuro: CN 2-12 intact, non-focal.
Psych: Normal mood and affect.
CT A/P 03/20:
1. SEVERE ACUTE C. DIFFICILE PANCOLITIS with interval decrease in colonic wall thickening compared with the prior CT examinations.
2. Small volume of abdominal and pelvic ascites.
3. VERY SEVERE DIFFUSE ANASARCA.
4. Moderate-sized bilateral pleural effusions.
5. Severe periportal edema in the liver.
6. Small paraesophageal hiatal hernia.
7. Moderate chronic right renal disease.
8. Severe multilevel lumbar discogenic degenerative disease.
9. 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
-currently on Dificid/PO Vanco/IV Flagyl as per ID
-imaging above
-leukocytosis has resolved
B/L LE edema, diffuse anasarca:
-B/L LE U/S NEG for DVT
-due to IVFs given on previous admission and hypoalbuminemia
-s/p Lasix 80 mg IV x 1
-continue compression stockings
-not a solvable problem unless albumin/nutrition improve
Abdominal distention:
-obstruction series showed nonspecific bowel gas pattern
-tolerating LR diet
Other problems:
Recent onset atrial fibrillation: Plan to start Eliquis late February/early March as per Dr. West last admission. Cont bisoprolol.
Acute urinary retention s/p straight cath on 03/17, resolved
Acute anemia, likely due to recent/current infection, iron studies adequate, Hb currently stable
Hypokalemia: 40meq K
Hypomagnesemia, resolved
Hypocalcemia
Moderate protein calorie malnutrition
Essential HTN: BPs labile, holding home Norvasc
Parkinson disease: cont Sinemet
Pt's updated at length at bedside.
FULL/Lovenox
Medically cleared for discharge if OK with ID ([facility] message sent to Dr. Mckeon at 1149 to discuss). Case management aware.
Anticipated Discharge: Today
Subjective/Interval History
-
Date of Service: March 24, 2025
Patient reports having 1 stool daily. States sometimes she has esophageal and chest discomfort when she takes her oral vancomycin.
Objective Data
-
Labs:
Laboratory Results
03/24/25
06:14
WBC 8.4
Hgb 9.6 L
Hct 27.8 L
Plt Count 350
Sodium 135
Potassium 3.4 L
Chloride 106
Carbon Dioxide 29
BUN 26 H
Creatinine 0.6
Glucose 95
Calcium 7.9 L
Vital Signs:
Vital Signs
Temp Pulse Resp BP Pulse Ox
97.9 F 90 17 171/92 99
03/24/25 07:47 03/24/25 08:43 03/24/25 07:47 03/24/25 08:43 03/24/25 07:47
I&O
03/23/25 03/24/25 03/25/25
06:59 06:59 06:59
Intake Total 200 / 200 2019
Balance 200 / 200 2019
--- NOTE | 2025-03-24 11:58 | W.PN.ID1 ---
Date of Service
Date of Service: March 24, 2025
Today's Communication
Continue abx
Assessment / Plan
Ongoing diarrhea
- not clear if 2* ongoing C. diff vs. post-infectious syndrome vs. other
Leukocytosis with significant bandemia (on manual differential)
Recent history C. difficile
Parkinson's
Hypertension
CAD
Splenectomy due to trauma age 25
HCV from blood transfusion s/p treatment, resolved
Anxiety/depression
Osteoporosis
Cachexia / FFT
Recommendations:
WBC remains normal
Stooling improved.
Discontinue further flagyl
Continue with deficid and high-dose vanco for another 10 days.
Thereafter, will need a prolonnged taper as follows:
dificid 200 mg daily x 14 days
vanco 500 mg daily x 14 days
then
dificid 200 mg every other day x 28 days
vancomycin 500 mg every other day x 28 days
Continue to follow stooling amount, consistency
����������������������������������������������������������
Chief Complaint
-: C-diff and Other (Diarrhea)
Subjective / Review of Systems
Feels well. Reports improved diarrhea; now mushy and only one time today. [id number] abdominal pain.
Review of Systems: No Fever and No Chills
Vital Signs / Physical Exam
Vital Signs
Vital Signs
Temp Pulse Resp BP Pulse Ox
97.4 F 87 16 101/61 98
03/24/25 11:20 03/24/25 11:20 03/24/25 11:20 03/24/25 11:20 03/24/25 11:20
Physical Exam
Constitutional: Comfortable, Chronically Ill, Non-toxic and Cachetic (Significant)
Eyes: No Conjunctival Hemorrhage
Cardiovascular: S1/S2; Negative S3/S4
Pulmonary: Non Labored
Gastrointestinal: Soft, Tender (Mild), Distended (Mild), Decreased Bowel Sounds, No Rebound, No Guarding and Other (No rigidity)
Extremities: Edema; Negative Cyanosis or Erythema
Neurological: Awake and Alert
Psychological: Calm
Objective Data
Lab Data
Lab Results
03/24/25 06:14
03/24/25 06:14
Estimated Creat Clear 56 ml/min 03/24/25 06:14
Total Bilirubin 0.4 mg/dl (0.2-1.3) 03/16/25 05:20
AST 36 U/L (14-36) 03/16/25 05:20
ALT < 10 U/L (0-35) 03/16/25 05:20
Alkaline Phosphatase 51 U/L (38-126) 03/16/25 05:20
Most recent labs reviewed.
Imaging:
03/20/2025 CT abdomen/pelvis with IV/oral contrast: severe acute C. difficile pancolitis with interval decrease in colonic wall thickening when compared to prior CT examinations. Small volume abdominal and pelvic ascites noted. There is severe
diffuse anasarca. Moderate size bilateral pleural effusions. Severe periportal edema in the liver. Please see full dictation for additional detail.
Care Review
Plan reviewed with: Physician (Hospitalist)
[2025-03-24] MEDS: KCL 40 MEQ PO (12:11)
--- NOTE | 2025-03-24 13:34 | CM ---
Addendum entered by Lisa Ellison 03/24/25 15:34:
IMM explained & in chart.
transport set for tomorrow at noon-LM for Niru liaison at [facility], updated
await COVID test
Original Note:
patient seen at bedside
LM for
Spoke with Niru liaison from [facility], bed available tomorrow - would like 11am transport
patient will need to bring Dificid to facility, aware
tt hospitalist-COVID test to be ordered
PLAN: [facility] tomorrow 03/25
REPORT #: [phone]
FAX #: [phone]
Transportation forms on chart
[2025-03-24] MEDS: LOVENOX 40 MG SC (17:43)
[2025-03-24] MEDS: TYLENOL 650 MG PO (17:49)
[2025-03-24] MEDS: MIRAPEX 0.25 MG PO (21:06)
[2025-03-25] MEDS: FLAGYL 500 MG 100 IV (03:11)
[2025-03-25 03:45] VITALS: BP 130/70
[2025-03-25] MEDS: TYLENOL 650 MG PO ×2 (03:57→08:14)
[2025-03-25] MEDS: FIRVANQ 500 MG PO (05:32)
[2025-03-25 07:06] VITALS: BP 152/83
[2025-03-25 07:20] LABS: Blood Urea Nitrogen 21 mg/dl (7-17); Calcium 8.0 mg/dl (8.4-10.2); Carbon Dioxide 29 mmol/L (22-30); Chloride 103 mmol/L (98-107); Estimated Creatinine Clearance 56 ml/min; Glucose 102 mg/dl (70-99); Potassium 3.7 mmol/L (3.5-5.1); Sodium 137 mmol/L (135-145); eGFR > 60.00
[2025-03-25] MEDS: ZEBETA 10 MG PO (08:14)
[2025-03-25] MEDS: SINEMET 25-100 1 TABLET PO (08:14)
[2025-03-25] MEDS: RASAGILINE MESYLATE 1 MG PO (08:14)
[2025-03-25] MEDS: OSCAL 500 + D 500 MG PO (08:14)
[2025-03-25] MEDS: DIFICID 200 MG PO (08:14)
[2025-03-25] MEDS: PEPCID 20 MG PO (08:15)
--- NOTE | 2025-03-25 08:38 | W.PN.HOSP.TC ---
Today's Communication/Plan
-
d/c
Assessment / Plan
Assessment / Plan
Gen: NAD, awake and alert, appears chronically ill malnourished
Eyes: EOMI, PERRLA, no scleral icterus.
Neck: supple.
CV: remains RRR, +S1/S2, no m/r/g.
Resp: remains CTAB, no rales, wheezes, or rhonchi.
Abd: +BS, soft, NT, ND
Skin: No rashes. 1+ B/L LE edema
Neuro: CN 2-12 intact, non-focal.
Psych: Normal mood and affect.
CT A/P 03/20:
1. SEVERE ACUTE C. DIFFICILE PANCOLITIS with interval decrease in colonic wall thickening compared with the prior CT examinations.
2. Small volume of abdominal and pelvic ascites.
3. VERY SEVERE DIFFUSE ANASARCA.
4. Moderate-sized bilateral pleural effusions.
5. Severe periportal edema in the liver.
6. Small paraesophageal hiatal hernia.
7. Moderate chronic right renal disease.
8. Severe multilevel lumbar discogenic degenerative disease.
9. 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
-was on on Dificid/PO Vanco/IV Flagyl as per ID. Now Flagyl stopped.
-imaging above
-leukocytosis has resolved
-for prolonged Dificid/Vanco taper as per ID
B/L LE edema, diffuse anasarca:
-B/L LE U/S NEG for DVT
-due to IVFs given on previous admission and hypoalbuminemia
-s/p Lasix 80 mg IV x 1
-continue compression stockings
-not a solvable problem unless albumin/nutrition improve
Abdominal distention:
-obstruction series showed nonspecific bowel gas pattern
-tolerating LR diet
Other problems:
Recent onset atrial fibrillation: Plan to start Eliquis late February/early March as per Dr. West last admission. Cont bisoprolol.
Acute urinary retention s/p straight cath on 03/17, resolved
Acute anemia, likely due to recent/current infection, iron studies adequate, Hb currently stable
Hypokalemia: 40meq K
Hypomagnesemia, resolved
Hypocalcemia
Moderate protein calorie malnutrition
Essential HTN: BPs labile, holding home Norvasc
Parkinson disease: cont Sinemet
Pt's updated at length at bedside.
FULL/Lovenox
Remains medically cleared for discharge since 03/24/25AM.
Total time spent on d/c = 31 min. This included today's physical exam, progress note, review of laboratory and diagnostic data, preparation of discharge documents and prescriptions, and discussions about the pt's hospital course and discharge plan
with the patient and other medical records specialist involved in the patient's care.
Anticipated Discharge: Today
Subjective/Interval History
-
Date of Service: March 25, 2025
Still c/o esophageal and chest discomfort with PO vanco.
Objective Data
-
Labs:
Laboratory Results
03/25/25
06:04
Sodium 137
Potassium 3.7
Chloride 103
Carbon Dioxide 29
BUN 21 H
Creatinine 0.6
Glucose 102 H
Calcium 8.0 L
Vital Signs:
Vital Signs
Temp Pulse Resp BP Pulse Ox
97.2 F 86 15 152/83 97
03/25/25 07:06 03/25/25 07:06 03/25/25 07:06 03/25/25 07:06 03/25/25 07:06
I&O
03/24/25 03/25/25 03/26/25
06:59 06:59 06:59
Intake Total 2019
Balance 2019
[2025-03-25 09:21] LABS: COVID-19 Antigen Negative (Negative)
--- NOTE | 2025-03-25 10:40 | CM ---
patient discharge today to [facility]
COVID negative
LM with Niru liaison at [facility]
aware to bring dificid to facility
IMM in chart explained yesterday.
PLAN: [facility] 03/25
REPORT #: [phone]
FAX #: [phone]
Transportation forms on chart, noon transport set ( notified)
--- NOTE | 2025-03-25 11:06 | W.PN.ID1 ---
Date of Service
Date of Service: March 25, 2025
Today's Communication
Continue current antibiotics.
Assessment / Plan
Diarrhea; improved
Leukocytosis - improved
Recent history C. difficile
Parkinson's
Hypertension
CAD
Splenectomy due to trauma age 25
HCV from blood transfusion s/p treatment, resolved
Anxiety/depression
Osteoporosis
Cachexia / FFT
Recommendations:
WBC remains normal
Stooling improved.
Continue with deficid and high-dose vanco for another 9 days.
Thereafter, will need a prolonnged taper as follows:
dificid 200 mg daily x 14 days
vanco 500 mg daily x 14 days
then
dificid 200 mg every other day x 28 days
vancomycin 500 mg every other day x 28 days
Continue to follow stooling amount, consistency. Advised patient that soft stool would be normal at this point, and it may be sometime before stooling becomes solid/formed.
����������������������������������������������������������
Chief Complaint
-: C-diff and Other (Diarrhea)
Subjective / Review of Systems
Patient seen and examined. Reports limited stooling. Describes stool as 'mushy' without phillip diarrhea. Denies abdominal pain. No fevers or chills.
Vital Signs / Physical Exam
Vital Signs
Vital Signs
Temp Pulse Resp BP Pulse Ox
97.2 F 86 15 152/83 97
03/25/25 07:06 03/25/25 07:06 03/25/25 07:06 03/25/25 07:06 03/25/25 07:06
Physical Exam
Constitutional: Comfortable, Chronically Ill, Non-toxic and Cachetic (Significant)
Eyes: No Conjunctival Hemorrhage
Cardiovascular: S1/S2; Negative S3/S4
Pulmonary: Non Labored
Gastrointestinal: Soft, Tender (Mild), Distended (Mild), Decreased Bowel Sounds, No Rebound, No Guarding and Other (No rigidity)
Extremities: Edema; Negative Cyanosis or Erythema
Neurological: Awake and Alert
Psychological: Calm
Objective Data
Lab Data
Lab Results
03/24/25 06:14
03/25/25 06:04
Estimated Creat Clear 56 ml/min 03/25/25 06:04
Total Bilirubin 0.4 mg/dl (0.2-1.3) 03/16/25 05:20
AST 36 U/L (14-36) 03/16/25 05:20
ALT < 10 U/L (0-35) 03/16/25 05:20
Alkaline Phosphatase 51 U/L (38-126) 03/16/25 05:20
Most recent labs reviewed.
Imaging:
03/20/2025 CT abdomen/pelvis with IV/oral contrast: severe acute C. difficile pancolitis with interval decrease in colonic wall thickening when compared to prior CT examinations. Small volume abdominal and pelvic ascites noted. There is severe
diffuse anasarca. Moderate size bilateral pleural effusions. Severe periportal edema in the liver. Please see full dictation for additional detail.
CT Scan: Image Reviewed and Report Reviewed
Care Review
Plan reviewed with: Physician (Hospitalist)
[2025-03-25 11:33] VITALS: BP 142/82
--- NOTE | 2025-03-25 14:01 | W.DCSUMMARY ---
Discharge Summary
Discharge Data
Date of Admission: 03/17/25
Date of Discharge: 03/25/25
-
Pending Results: No
Hospital Course
Primary diagnoses:
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
Diffuse anasarca
Secondary diagnoses:
Recent onset atrial fibrillation
Acute urinary retention s/p straight cath on 03/17, resolved
Acute anemia likely due to recent/current infection
Hypokalemia
Hypomagnesemia
Hypocalcemia
Moderate protein calorie malnutrition
Essential hypertension
Parkinson disease
Consultants:
Infectious disease
Imaging:
OBST series: Patchy bibasilar opacities which could represent subsegmental atelectasis as well as accompanying small left pleural effusion. Nonspecific intestinal bowel gas pattern. No free air.
CT A/P 03/20:
1. SEVERE ACUTE C. DIFFICILE PANCOLITIS with interval decrease in colonic wall thickening compared with the prior CT examinations.
2. Small volume of abdominal and pelvic ascites.
3. VERY SEVERE DIFFUSE ANASARCA.
4. Moderate-sized bilateral pleural effusions.
5. Severe periportal edema in the liver.
6. Small paraesophageal hiatal hernia.
7. Moderate chronic right renal disease.
8. Severe multilevel lumbar discogenic degenerative disease.
9. 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
79-year-old female who presented with chief complaint of bilateral lower extremity edema and diarrhea as outlined in the H&P done on admission. Hospital course by problem was:
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 The patient was treated with Dificid, oral vancomycin, and IV Flagyl as per infectious disease. She had a leukocytosis that resolved. She clinically improved. On discharge she is going to be
on a prolonged Dificid/Vanco taper.
B/L LE edema, diffuse anasarca: This was due to IVFs given on previous admission and hypoalbuminemia. The patient had a B/L LE U/S which was negative for DVT. She received Lasix 80 mg IV x 1. She was placed on compression stockings.This is not a
solvable problem unless albumin/nutrition improve.
Abdominal distention: Obstruction series showed nonspecific bowel gas pattern. The patient was tolerating a low residue diet
Discharge Plan
-
Patient Disposition: Residential/SNF
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
Condition: Fair
Diet: No restrictions
Activity: With assistance
Driving Restrictions: No driving
Blood Work: CBC, Mg, CBC with diff in 5 days, script from PCP
Activity Restrictions/Additional Instructions:
Prolonged antibiotic taper AFTER initial 10 days Dificid/Vanco as follows:
dificid 200 mg daily x 14 days
vanco 500 mg daily x 14 days
then
dificid 200 mg every other day x 28 days
vancomycin 500 mg every other day x 28 days
Referrals:
UNKNOWN - PT NOT,INTERVIEWE [Family Provider] - in less than 1 week
Prescriptions:
New
vancomycin 50 mg/mL Recon Soln
500 mg PO Q6 Qty: 0 0RF
Continued
rasagiline 1 MG tablet
1 mg PO DAILY
famotidine 20 mg tablet
20 mg PO DAILY
carbidopa-levodopa 25-100 mg Tablet
1 tab PO HS
fidaxomicin [Dificid] 200 mg Tablet
200 mg PO BID Qty: 1 0RF
Rx Instructions:
through 03/17/25
bisoprolol fumarate 10 mg Tablet
10 mg PO DAILY Qty: 0 0RF
pramipexole 0.25 mg Tablet
0.25 mg PO HS Qty: 1 0RF
calcium carbonate-vitamin D3 [Oyster Shell Calcium-Vit D3] 500 mg-5 mcg (200 unit) Tablet
1 tab PO TID Qty: 0 0RF
melatonin 5 mg Tablet
5 mg PO HS Qty: 0 0RF
acetaminophen 325 mg Tablet
650 mg PO Q4H PRN (Reason: mild pain/fever greater than 100F)
magnesium hydroxide [Milk of Magnesia] 400 mg/5 mL Suspension
30 ml PO DAILY PRN (Reason: if no BM in 3 days)
bisacodyl [Dulcolax (bisacodyl)] 10 mg Suppository
10 mg VT DAILY PRN (Reason: if MOM is ineffective after 24h)
estradiol 0.01 % (0.1 mg/gram) Cream
1 g VAGINAL Q72H
carbidopa-levodopa 25-100 mg tablet
1 tab PO QID
Discontinued
amlodipine 5 mg Tablet
5 mg PO DAILY Qty: 0 0RF
Fleet Enema 19-7 gram/118 mL Enema
118 ml VT DAILYPRN PRN (Reason: if ducolax is ineffective after 24h)
Discharge Orders:
Discharge Patient (As Directed); Ordered 03/25/25
Ordered By: Dashawn Back
Discharge Date and Time
Discharge Date/Time: 03/25/25 13:12
Print Language: SWEDISH
== END 2025-03-25 13:12 | DRG 372 ==
LOC: 3 WEST ACU 09:23
PROVIDERS: Family Medicine; Student in an Organized Health Care Education/Training Program; ADMITTING PHYSICIAN Internal Medicine; CONSULT PHYSICIAN Internal Medicine Infectious Disease; EMERGENCY PHYSICIAN Emergency Medicine
DX: A04.72 Enterocolitis due to Clostridium difficile, not specified as recurrent (principal); E44.0 Moderate protein-calorie malnutrition; Z68.1 Body mass index [BMI] 19.9 or less, adult; R64 Cachexia; E87.6 Hypokalemia; E88.09 Other disorders of plasma-protein metabolism, not elsewhere classified; E83.51 Hypocalcemia; I48.91 Unspecified atrial fibrillation; I10 Essential (primary) hypertension; G20.A1 Parkinson's disease without dyskinesia, without mention of fluctuations; E83.42 Hypomagnesemia; Z11.52 Encounter for screening for COVID-19
CPT/HCPCS: 74022; 74177; 80048; 80053; 82040; 82728; 83540; 83550; 83735; 84100; 85025; 85027; 87811; 93005; 93970; 96365; 96366; 97116; 97162; 97166; 97530; 99285; P9045; P9047; Q9967